=== PATIENT | female | born 1950 | race Caucasian/White ===

== ENCOUNTER → 2016-07-19 | Outpatient (CLI) | payer MEDICARE ==
[2016-07-19 11:06] LABS: Basophils # (A) 0.1 k/uL (0-0.2); Basophils % (A) 1 %; CHCM 31.7; Eosinophils # (A) 0.1 k/uL (0-0.7); Eosinophils % (A) 2 %; HCT 40.3 % (34.0-46.0); HGB 12.3 gm/dL (11.4-16.0); Hypochromasia Slight; Luc # (Auto) 0.12; Luc % (Auto) 2; Lymphocytes # (A) 1.5 k/uL (1.0-4.8); Lymphocytes % (A) 23 %; MCH 26.1 pg (25.0-35.0); MCHC 30.5 g/dL (31.0-37.0); MCV 85.6 fL (80.0-100.0); Mean Platelet Volume 7.4; Monocytes # (A) 0.4 k/uL (0-1.0); Monocytes % (A) 6 %; Neutrophils # (A) 4.3 k/uL (1.3-7.7); Neutrophils % (A) 66 %; RBC 4.71 m/uL (3.80-5.40); RDW 15.3 % (11.5-15.5); WBC 6.5 k/uL (3.8-10.6); WBC (Perox) 6.56
[2016-07-19 12:30] LABS: Erythrocyte Sedimentation Rate 21 mm/hr (0-20)
[2016-07-19 12:48] LABS: ALT 34 U/L (9-52); AST 23 U/L (14-36); Alkaline Phosphatase 67 U/L (38-126); Anion Gap 12 mmol/L; Blood Urea Nitrogen 13 mg/dL (7-17); Calcium 9.4 mg/dL (8.4-10.2); Carbon Dioxide 28 mmol/L (22-30); Chloride 103 mmol/L (98-107); Cholesterol 156 mg/dL (<200); Glucose 87 mg/dL (74-99); HDL Cholesterol 68 mg/dL (40-60); Non-African American GFR(MDRD) >60 (>60 ml/min/1.73 sqM); Potassium 4.1 mmol/L (3.5-5.1); Sodium 143 mmol/L (137-145); Total Bilirubin 0.8 mg/dL (0.2-1.3); Total Protein 7.1 g/dL (6.3-8.2); Triglycerides 52 mg/dL (<150)
[2016-07-19 15:02] LABS: C Reactive Protein 13.4 mg/L (<10.0)
== END | disposition home or self-care (01) ==
LOC: LABWHC1 10:42
PROVIDERS: ATTEND Internal Medicine Rheumatology
DX: Z00.00 Encounter for general adult medical examination without abnormal findings (principal); M06.9 Rheumatoid arthritis, unspecified; I10 Essential (primary) hypertension; K21.9 Gastro-esophageal reflux disease without esophagitis
CPT/HCPCS: 36415; 80053; 80061; 82306; 84443; 85025; 85652; 86140

== ENCOUNTER → 2016-08-01 | Outpatient (CLI) | payer MEDICARE ==
--- NOTE | 2016-08-02 13:06 | MM ---
Reason for exam: screening (asymptomatic). Last mammogram was performed 3 years and 2 months ago. History: Patient is postmenopausal. Family history of breast cancer in aunt. Cyst aspiration of the right breast. Excisional biopsy of the left breast. Took estrogen for 2 years beginning at age 47. Physical Findings: A clinical breast exam by your physician is recommended on an annual basis and results should be correlated with mammographic findings. MG 3D Screening Mammo W/Cad Bilateral CC and MLO view(s) were taken. Prior study comparison: May 20, 2013, bilateral digital screening mammo w/CAD. December 19, 2009, bilateral digital screening mammogram. The breast tissue is heterogeneously dense. This may lower the sensitivity of mammography. Finding: There are typically benign dystrophic, round, grouped/clustered calcifications in both breasts. There is a chronic nodularity in the left breast. There is no discrete abnormality. ASSESSMENT: Benign, BI-RAD 2 RECOMMENDATION: Routine screening mammogram of both breasts in 1 year.
== END | disposition home or self-care (01) ==
LOC: RADMAMWWP 12:38
PROVIDERS: ATTEND Family Medicine
DX: Z12.31 Encounter for screening mammogram for malignant neoplasm of breast (principal); K21.9 Gastro-esophageal reflux disease without esophagitis; I10 Essential (primary) hypertension; M06.9 Rheumatoid arthritis, unspecified
CPT/HCPCS: 77063; G0202

== ENCOUNTER → 2017-01-23 | Outpatient (CLI) | payer MEDICARE ==
[2017-01-23 13:29] LABS: Basophils # (A) 0.1 k/uL (0-0.2); Basophils % (A) 1 %; CH 27.1; CHCM 31.6; Eosinophils # (A) 0.2 k/uL (0-0.7); Eosinophils % (A) 3 %; HCT 38.2 % (34.0-46.0); Hypochromasia Slight; Luc # (Auto) 0.15; Luc % (Auto) 3; Lymphocytes # (A) 1.4 k/uL (1.0-4.8); Lymphocytes % (A) 23 %; MCH 27.1 pg (25.0-35.0); MCHC 31.5 g/dL (31.0-37.0); Mean Platelet Volume 7.3; Monocytes # (A) 0.3 k/uL (0-1.0); Monocytes % (A) 5 %; Neutrophils # (A) 3.9 k/uL (1.3-7.7); Neutrophils % (A) 66 %; RBC 4.45 m/uL (3.80-5.40); RDW 15.8 % (11.5-15.5); WBC (Perox) 6.49
[2017-01-23 13:39] LABS: ALT 38 U/L (9-52); AST 24 U/L (14-36); C Reactive Protein 20.8 mg/L (<10.0); Non-African American GFR(MDRD) >60 (>60 ml/min/1.73 sqM)
[2017-01-23 14:31] LABS: Erythrocyte Sedimentation Rate 25 mm/hr (0-20)
== END | disposition home or self-care (01) ==
LOC: LABWHC1 12:40
PROVIDERS: ATTEND Internal Medicine Rheumatology
DX: M05.89 Other rheumatoid arthritis with rheumatoid factor of multiple sites (principal); Z88.2 Allergy status to sulfonamides
CPT/HCPCS: 36415; 82565; 84450; 84460; 85025; 85652; 86140

== ENCOUNTER → 2017-03-27 | Outpatient (CLI) | payer MEDICARE ==
[2017-03-27 13:29] LABS: Basophils % (A) 1 %; CH 26.6; Eosinophils # (A) 0.1 k/uL (0-0.7); Eosinophils % (A) 2 %; HCT 39.2 % (34.0-46.0); HDW 2.44; HGB 12.1 gm/dL (11.4-16.0); Hypochromasia Marked; Luc # (Auto) 0.12; Luc % (Auto) 2; Lymphocytes # (A) 1.3 k/uL (1.0-4.8); Lymphocytes % (A) 24 %; MCH 27.4 pg (25.0-35.0); MCHC 30.8 g/dL (31.0-37.0); MCV 88.9 fL (80.0-100.0); Mean Platelet Volume 6.7; Monocytes # (A) 0.3 k/uL (0-1.0); Monocytes % (A) 6 %; Neutrophils # (A) 3.7 k/uL (1.3-7.7); Neutrophils % (A) 65 %; RDW 15.7 % (11.5-15.5); WBC 5.7 k/uL (3.8-10.6); WBC (Perox) 5.94
[2017-03-27 13:42] LABS: ALT 30 U/L (9-52); AST 22 U/L (14-36); Non-African American GFR(MDRD) >60 (>60 ml/min/1.73 sqM)
[2017-03-27 14:29] LABS: Erythrocyte Sedimentation Rate 21 mm/hr (0-20)
== END | disposition home or self-care (01) ==
LOC: LABWHC1 12:58
PROVIDERS: ATTEND Internal Medicine Rheumatology
DX: M05.89 Other rheumatoid arthritis with rheumatoid factor of multiple sites (principal)
CPT/HCPCS: 36415; 82565; 84450; 84460; 85025; 85652; 86140

== ENCOUNTER → 2017-08-14 | Outpatient (CLI) | payer MEDICARE ==
[2017-08-14 09:16] LABS: Basophils % (A) 0 %; Eosinophils # (A) 0.2 k/uL (0-0.7); Eosinophils % (A) 3 %; HCT 35.7 % (34.0-46.0); HGB 10.8 gm/dL (11.4-16.0); Hypochromasia Moderate; Lymphocytes % (A) 15 %; MCH 25.3 pg (25.0-35.0); MCHC 30.4 g/dL (31.0-37.0); MCV 83.4 fL (80.0-100.0); Mean Platelet Volume 6.9; Monocytes # (A) 0.4 k/uL (0-1.0); Monocytes % (A) 5 %; Neutrophils # (A) 5.3 k/uL (1.3-7.7); Neutrophils % (A) 75 %; Platelet Count 344 k/uL (150-450); RBC 4.28 m/uL (3.80-5.40); RDW 15.5 % (11.5-15.5); WBC 7.1 k/uL (3.8-10.6)
[2017-08-14 09:59] LABS: ALT 17 U/L (9-52); AST 21 U/L (14-36); C Reactive Protein 16.4 mg/L (<10.0)
[2017-08-14 10:55] LABS: Erythrocyte Sedimentation Rate 33 mm/hr (0-20)
== END | disposition home or self-care (01) ==
LOC: LABWHC1 08:49
PROVIDERS: ATTEND Internal Medicine Rheumatology
DX: M06.9 Rheumatoid arthritis, unspecified (principal)
CPT/HCPCS: 36415; 82565; 84450; 84460; 85025; 85652; 86140

== ENCOUNTER → 2017-11-13 | Outpatient (CLI) | payer MEDICARE ==
[2017-11-13 13:10] LABS: Anisocytosis Slight; Basophils % (A) 1 %; Eosinophils # (A) 0.1 k/uL (0-0.7); Eosinophils % (A) 2 %; HCT 35.9 % (34.0-46.0); HGB 11.4 gm/dL (11.4-16.0); Hypochromasia Slight; Lymphocytes # (A) 1.4 k/uL (1.0-4.8); Lymphocytes % (A) 24 %; MCH 26.3 pg (25.0-35.0); MCHC 31.7 g/dL (31.0-37.0); MCV 82.9 fL (80.0-100.0); Mean Platelet Volume 6.3; Monocytes # (A) 0.3 k/uL (0-1.0); Monocytes % (A) 4 %; Neutrophils # (A) 3.7 k/uL (1.3-7.7); Neutrophils % (A) 65 %; Platelet Count 329 k/uL (150-450); RBC 4.34 m/uL (3.80-5.40); RDW 16.5 % (11.5-15.5); WBC 5.7 k/uL (3.8-10.6)
[2017-11-13 13:25] LABS: ALT 28 U/L (9-52); AST 21 U/L (14-36); C Reactive Protein 27.9 mg/L (<10.0)
[2017-11-13 14:54] LABS: Erythrocyte Sedimentation Rate 29 mm/hr (0-20)
== END | disposition home or self-care (01) ==
LOC: LABWHC1 12:37
PROVIDERS: ATTEND Internal Medicine Rheumatology
DX: M06.9 Rheumatoid arthritis, unspecified (principal)
CPT/HCPCS: 36415; 82565; 84450; 84460; 85025; 85652; 86140

== ENCOUNTER → 2018-02-12 | Outpatient (CLI) | payer MEDICARE ==
[2018-02-12 13:08] LABS: Anisocytosis Slight; Basophils # (A) 0.1 k/uL (0-0.2); Basophils % (A) 1 %; Eosinophils # (A) 0.2 k/uL (0-0.7); Eosinophils % (A) 3 %; HCT 36.8 % (34.0-46.0); HGB 11.6 gm/dL (11.4-16.0); Hypochromasia Slight; Lymphocytes # (A) 1.3 k/uL (1.0-4.8); Lymphocytes % (A) 23 %; MCH 26.3 pg (25.0-35.0); MCHC 31.4 g/dL (31.0-37.0); MCV 83.7 fL (80.0-100.0); Mean Platelet Volume 6.5; Monocytes # (A) 0.3 k/uL (0-1.0); Monocytes % (A) 6 %; Neutrophils # (A) 3.8 k/uL (1.3-7.7); Neutrophils % (A) 66 %; Platelet Count 276 k/uL (150-450); RDW 16.1 % (11.5-15.5); WBC 5.8 k/uL (3.8-10.6)
[2018-02-12 13:26] LABS: ALT 31 U/L (9-52); AST 26 U/L (14-36); C Reactive Protein 11.5 mg/L (<10.0)
[2018-02-12 14:11] LABS: Erythrocyte Sedimentation Rate 23 mm/hr (0-20)
== END | disposition home or self-care (01) ==
LOC: LABWHC1 12:38
PROVIDERS: ATTEND Internal Medicine Rheumatology
DX: M06.9 Rheumatoid arthritis, unspecified (principal)
CPT/HCPCS: 36415; 82565; 84450; 84460; 85025; 85652; 86140

== ENCOUNTER → 2018-06-11 | Outpatient (CLI) | payer MEDICARE ==
--- NOTE | 2018-06-11 10:33 | EST ---
EXERCISE STRESS AGE: 68 SEX: F HT: 60' WT: 137 PROTOCOL: Lexiscan Cardiolite Stress Test HEART RATE REST: 70 BLOOD PRESSURE REST: 157/77 MAXIMUM HEART RATE ACHIEVED: 91 MAXIMUM BLOOD PRESSURE: 164/47 INDICATIONS: Abnormal EKG CLINICAL INFORMATION: Baseline rhythm is sinus mechanism, rate 70, normal axis and intervals, normal echocardiogram. Baseline blood pressure 157/77 mmHg. Patient received injection of Lexiscan. Electrocardiographic monitoring revealed no evidence of diagnostic ischemic ST deviation. Cardiolite was injected per protocol. CONCLUSION: 1. Nondiagnostic electrocardiograph stress testing. 2. Nuclear images will be reported separately. MMODL / IJN: [id number] /
--- NOTE | 2018-06-11 14:15 | NM ---
EXAMINATION TYPE: NM stress cardiolite complete DATE OF EXAM: 06/11/2018 COMPARISON: NONE HISTORY: R 94.31, abnormal EKG TECHNIQUE: Patient received 10.6 and 25.4 mCi technetium 99m Cardiolite intravenously and protocol wa s 0.4 mg Lexiscan IV. FINDINGS: Targeted heart rate was achieved during performance of the study. Review of stress and rest SPECT neyda ges demonstrates some decreased uptake along the anteroseptal left ventricle towards the apex however there is some decreased uptake at the cardiac apex on stress as compared to rest images. Gated anal ysis shows normal wall motion with an estimated left ventricular ejection fraction of 63 %. IMPRESSION: Question prior infarct and there is finding compatible with stress-induced mona-infarct left ventricu lar myocardial ischemia. Report relayed telephonically to Russ in the office of Dr. Caceres at the [facility] of interpretation at exam.
== END ==
LOC: RADNMMAIN 07:52
PROVIDERS: ATTEND Family Medicine
DX: R94.31 Abnormal electrocardiogram [ECG] [EKG] (principal)
CPT/HCPCS: 93017; 78452; A9500

== ENCOUNTER 2018-06-24 07:18 | Day surgery (SDC) | payer MEDICARE ==
[2018-06-19 08:47] VITALS: BMI 26.5
[~2018-06-24 07:18] MED LIST: ALPRAZolam 0.25 MG TAB PO PRN; ALPRAZolam 0.5 MG TAB PO PRN; ASPIRIN 325 MG TAB PO ONE; ATORVASTATIN 80 MG TAB PO ONE; NITROGLYCERIN SL TABS 0.4 MG TAB SUBLINGUAL PRN; SODIUM CHLORIDE 0.9% 1,000 ML in EMPTY BAG 1 BAG IV ONE
[2018-06-24 08:37] VITALS: PULSE 65; TEMP 98.2
[2018-06-24] MEDS ORDERED: fentaNYL (PF) 50 MCG/ML 2 ML AMP ONE (09:11)
[2018-06-24] MEDS ORDERED: LIDOCAINE 1% INJ 10MG/ML (20 ML MDV) ONE (09:11)
[2018-06-24] MEDS ORDERED: MIDAZOLAM 2 MG/2 ML VIAL IVP ONE (09:28)
[2018-06-24] MEDS ORDERED: fentaNYL (PF) 50 MCG/ML 2 ML AMP IVP ONE (09:29)
[2018-06-24] MEDS ORDERED: LIDOCAINE 1% (PF) 10MG/ML VIAL SQ ONE (09:40)
[2018-06-24] MEDS ORDERED: IOPAMIDOL-370 125ML BTL INJ ONE (09:52)
[2018-06-24] MEDS ORDERED: IOPAMIDOL-370 50ML BTL INJ ONE (09:53)
[2018-06-24] MEDS ORDERED: RX INFO: IV CONTRAST WAS GIVEN 1 EACH MISC MISCELLANE PRN (10:07)
--- NOTE | 2018-06-24 10:13 | P.CARDCATH ---
Date of Procedure: 06/24/18 Preoperative Diagnosis: Positive stress test, preop clearance Postoperative Diagnosis: Noncritical coronary artery disease Procedure(s) Performed: Left heart catheterization with left ventriculography Description of Procedure: HISTORY: This is a 68-year-old female with history of rheumatoid arthritis who is being considered for orthopedic surgery. Patient had a nuclear stress test preoperatively. This was reported as showing fixed defect in the anteroseptal area with reversible ischemia at the apex. Patient is advised to have a cardiac catheterization for definitive diagnosis. CONSENT:I have discussed the risks, benefits and alternative therapies for the above-mentioned procedure and for both sedation/analgesia as well as necessary blood product administration, if indicated, as they pertain to this patient. The patient has indicated understanding and acceptance of the risks and procedures discussed. PROCEDURE: Patient was brought to the lab in a fasting state. Patient was given some IV sedation. The right groin is infiltrated with lidocaine and right femoral artery was entered using Seldinger technique. A 6-Estonian catheter was left in place and selective coronary arteriography and left ventriculography was performed. Patient tolerated the procedure well. Femoral angiogram was performed and Angio-Seal was applied for hemostasis. No immediate complications were noted and patient was transferred to [facility] in a stable condition Conscious Sedation: Versed 0.5mg Fentanyl 50 g Duration 17minutes HEMODYNAMICS: The aortic pressure is about 120/70. Left ventricle end- diastolic pressure is about 8-10. There was no gradient across the aortic valve. SELECTIVE CORONARY ARTERIOGRAPHY: LEFT MAIN: This is a short and patent and device into left anterior descending and a complex system. Mild calcification noted. No critical blockages THE LEFT ANTERIOR DESCENDING CORONARY ARTERY: This a good caliber vessel with calcification the proximal segment. There is mild plaque after the first diagonal branch. The first diagonal branch is good sized branch. The LAD wraps around the apex. No critical lesion noted in the LAD THE LEFT CIRCUMFLEX AND IS CORONARY ARTERY: This is a moderate caliber vessel with mild plaque in the midportion THE RIGHT CORONARY ARTERY:. This is a good caliber vessel and dominant in nature. It gives rise good-sized PDA and PLV branches. There is a mild plaque in the midportion of the RCA with about 30% luminal narrowing. No critical lesions noted LEFT VENTRICULOGRAPHY:. This revealed normal-sized cardiac silhouette with good systolic function without any segmental wall motion defects FINAL IMPRESSION: Noncritical coronary artery disease. Preserved LV function PLAN: Maximum medical therapy and this factor modification. Patient is cleared for surgery PROGNOSIS: Fair
[2018-06-24] MEDS ORDERED: SODIUM CHLORIDE 0.9% 1,000 ML IV SCH (10:15)
[2018-06-24 15:22] VITALS: BP 148/64; RESP 18
== END 2018-06-24 15:30 | disposition home or self-care (01) ==
LOC: CATHCVL 07:18
PROVIDERS: ATTEND Internal Medicine Cardiovascular Disease
DX: I25.10 Atherosclerotic heart disease of native coronary artery without angina pectoris (principal); I25.84 Coronary atherosclerosis due to calcified coronary lesion; I10 Essential (primary) hypertension; M06.9 Rheumatoid arthritis, unspecified; Z79.899 Other long term (current) drug therapy; Z88.1 Allergy status to other antibiotic agents; Z88.5 Allergy status to narcotic agent; Z88.2 Allergy status to sulfonamides
CPT/HCPCS: 93458; C1760; C1894; C1769 ×2; J2250; J3010; J2001; Q9967 ×2

== ENCOUNTER → 2018-08-20 | Outpatient (CLI) | payer MEDICARE ==
[2018-08-20 13:26] LABS: Basophils # (A) 0.1 k/uL (0-0.2); Basophils % (A) 1 %; Eosinophils # (A) 0.3 k/uL (0-0.7); Eosinophils % (A) 4 %; HCT 37.1 % (34.0-46.0); HGB 11.2 gm/dL (11.4-16.0); Hypochromasia Marked; Lymphocytes # (A) 1.7 k/uL (1.0-4.8); Lymphocytes % (A) 21 %; MCH 25.3 pg (25.0-35.0); MCHC 30.3 g/dL (31.0-37.0); MCV 83.4 fL (80.0-100.0); Mean Platelet Volume 5.9; Monocytes # (A) 0.4 k/uL (0-1.0); Monocytes % (A) 5 %; Neutrophils # (A) 5.5 k/uL (1.3-7.7); Neutrophils % (A) 68 %; Platelet Count 334 k/uL (150-450); RBC 4.45 m/uL (3.80-5.40); RDW 15.5 % (11.5-15.5); WBC 8.1 k/uL (3.8-10.6)
[2018-08-20 15:53] LABS: Erythrocyte Sedimentation Rate 41 mm/hr (0-20)
[2018-08-20 19:25] LABS: C Reactive Protein 1.5 mg/dL (0.0-0.8)
== END | disposition home or self-care (01) ==
LOC: LABWHC1 12:56
PROVIDERS: ATTEND Internal Medicine Rheumatology
DX: M06.9 Rheumatoid arthritis, unspecified (principal)
CPT/HCPCS: 36415; 82565; 84450; 84460; 85025; 85652; 86140

== ENCOUNTER → 2018-09-17 | Outpatient (CLI) | payer MEDICARE ==
[2018-09-17 10:07] LABS: HCT 36.9 % (34.0-46.0); HGB 10.9 gm/dL (11.4-16.0); Hypochromasia Moderate; MCHC 29.6 g/dL (31.0-37.0); MCV 81.2 fL (80.0-100.0); Mean Platelet Volume 6.5; Platelet Count 326 k/uL (150-450); RBC 4.55 m/uL (3.80-5.40); RDW 15.8 % (11.5-15.5); WBC 6.7 k/uL (3.8-10.6)
[2018-09-17 10:14] LABS: INR 1.2 (<1.2)
[2018-09-17 16:57] LABS: Hemoglobin A1C 5.5 % (4.0-6.0)
[2018-09-17 16:59] LABS: Anion Gap 4.4 mmol/L (4.00-12.00); Calcium 9.4 mg/dL (8.7-10.3); Carbon Dioxide 30.6 mmol/L (21.6-31.8); Potassium 5.1 mmol/L (3.5-5.5)
== END | disposition home or self-care (01) ==
LOC: LABWHC1 08:52
PROVIDERS: ATTEND Orthopaedic Surgery Adult Reconstructive Orthopaedic Surgery
DX: Z01.89 Encounter for other specified special examinations (principal)
CPT/HCPCS: 36415; 80048; 83036; 85027; 85610; 87070

== ENCOUNTER → 2018-12-01 | Outpatient (CLI) | payer MEDICARE ==
[2018-12-01 11:54] LABS: Anisocytosis Slight; Basophils # (A) 0.1 k/uL (0-0.2); Basophils % (A) 1 %; Eosinophils # (A) 0.3 k/uL (0-0.7); Eosinophils % (A) 4 %; HCT 32.8 % (34.0-46.0); HGB 9.7 gm/dL (11.4-16.0); Hypochromasia Marked; Lymphocytes # (A) 1.1 k/uL (1.0-4.8); Lymphocytes % (A) 16 %; MCH 23.3 pg (25.0-35.0); MCHC 29.7 g/dL (31.0-37.0); MCV 78.3 fL (80.0-100.0); Mean Platelet Volume 6.7; Microcytosis Slight; Monocytes # (A) 0.4 k/uL (0-1.0); Monocytes % (A) 6 %; Neutrophils # (A) 5.1 k/uL (1.3-7.7); Neutrophils % (A) 73 %; Platelet Count 343 k/uL (150-450); RBC 4.19 m/uL (3.80-5.40); RDW 16.5 % (11.5-15.5)
[2018-12-01 14:49] LABS: Erythrocyte Sedimentation Rate 48 mm/hr (0-20)
[2018-12-01 16:07] LABS: C Reactive Protein 5.2 mg/dL (0.0-0.8)
== END ==
LOC: LABWHC1 11:04
PROVIDERS: ATTEND Internal Medicine Rheumatology
DX: M06.9 Rheumatoid arthritis, unspecified (principal)
CPT/HCPCS: 36415; 82565; 84450; 84460; 85025; 85652; 86140

== ENCOUNTER → 2019-04-01 | Outpatient (CLI) | payer MEDICARE ==
[2019-04-01 09:39] LABS: Anisocytosis Slight; Basophils # (A) 0.1 k/uL (0-0.2); Basophils % (A) 1 %; Eosinophils # (A) 0.3 k/uL (0-0.7); Eosinophils % (A) 4 %; HCT 34.1 % (34.0-46.0); HGB 10.1 gm/dL (11.4-16.0); Hypochromasia Marked; Lymphocytes # (A) 1.4 k/uL (1.0-4.8); Lymphocytes % (A) 16 %; MCH 23.7 pg (25.0-35.0); MCHC 29.7 g/dL (31.0-37.0); MCV 79.8 fL (80.0-100.0); Mean Platelet Volume 6.3; Microcytosis Slight; Monocytes # (A) 0.4 k/uL (0-1.0); Monocytes % (A) 5 %; Neutrophils # (A) 6.5 k/uL (1.3-7.7); Neutrophils % (A) 74 %; Platelet Count 389 k/uL (150-450); RBC 4.27 m/uL (3.80-5.40); RDW 17.9 % (11.5-15.5); WBC 8.8 k/uL (3.8-10.6)
[2019-04-01 11:37] LABS: Erythrocyte Sedimentation Rate 54 mm/hr (0-20)
== END | disposition home or self-care (01) ==
LOC: LABWHC1 08:51
PROVIDERS: ATTEND Internal Medicine Rheumatology
DX: M06.9 Rheumatoid arthritis, unspecified (principal)
CPT/HCPCS: 36415; 82565; 84450; 84460; 85025; 85652; 86140

== ENCOUNTER → 2019-07-15 | Outpatient (CLI) | payer MEDICARE ==
[2019-07-15 09:07] LABS: Anisocytosis Slight; Basophils % (A) 0 %; Eosinophils # (A) 0.2 k/uL (0-0.7); Eosinophils % (A) 3 %; HCT 35.6 % (34.0-46.0); HGB 10.8 gm/dL (11.4-16.0); Hypochromasia Marked; Lymphocytes # (A) 1.2 k/uL (1.0-4.8); Lymphocytes % (A) 21 %; MCH 24.9 pg (25.0-35.0); MCHC 30.5 g/dL (31.0-37.0); MCV 81.6 fL (80.0-100.0); Mean Platelet Volume 7.4; Monocytes # (A) 0.3 k/uL (0-1.0); Monocytes % (A) 5 %; Neutrophils % (A) 69 %; Platelet Count 324 k/uL (150-450); RBC 4.36 m/uL (3.80-5.40); RDW 17.1 % (11.5-15.5); WBC 5.8 k/uL (3.8-10.6)
[2019-07-15 11:18] LABS: Erythrocyte Sedimentation Rate 48 mm/hr (0-20)
[2019-07-15 17:05] LABS: C Reactive Protein 3.4 mg/dL (0.0-0.8); Non-African American GFR(CKD) 87.2 (60.0-200.0)
== END | disposition home or self-care (01) ==
LOC: LABWHC1 08:45
PROVIDERS: ATTEND Internal Medicine Rheumatology
DX: M06.9 Rheumatoid arthritis, unspecified (principal)
CPT/HCPCS: 36415; 82565; 84450; 84460; 85025; 85652; 86140

== ENCOUNTER → 2019-11-16 | Outpatient (CLI) | payer MEDICARE ==
--- NOTE | 2019-11-16 11:39 | CT ---
EXAMINATION TYPE: CT chest wo con DATE OF EXAM: 11/16/2019 COMPARISON: None HISTORY: Pneumonia, immunocompromised CT DLP: 337 mGycm, Automated exposure control for dose reduction was used. CONTRAST: Performed injected with 0 mL of Isovue 300. TECHNIQUE: Axial images were obtained at 5 mm thick sections. Reconstructed images are reviewed on [employer] computer in the coronal plane. FINDINGS: Portion of the thyroid visualized is normal. There is a 0.4 cm nodule in the posterior lateral left lung base. Series 4 image 44. Remainder the benjamin ngs appear clear. No suspicious areas of pneumonitis are evident. No masses or nodules are otherwise evident. No enlarged mediastinal or hilar adenopathy is evident. The ascending aorta diameter at the level o f the main pulmonary artery is 3.4 cm. The main pulmonary artery diameter at the bifurcation is 2.6 cm. Coronary artery calcification is noted. Limited CT sections are obtained through the upper abdomen. Abdomen is essentially unremarkable. IMPRESSIONS: 1. Small nodule left lung base. This could be followed in 6 months. 2. No suspicious changes to suggest underlying pneumonia
== END | disposition home or self-care (01) ==
LOC: RADCTMAIN 10:46
PROVIDERS: ATTEND Internal Medicine Pulmonary Disease
DX: R91.1 Solitary pulmonary nodule (principal); M05.10 Rheumatoid lung disease with rheumatoid arthritis of unspecified site; D84.9 Immunodeficiency, unspecified
CPT/HCPCS: 71250

== ENCOUNTER → 2020-03-07 | Outpatient (CLI) | payer MEDICARE ==
[2020-03-07 12:34] LABS: Anisocytosis Slight; Basophils # (A) 0.1 k/uL (0-0.2); Basophils % (A) 1 %; Eosinophils # (A) 0.2 k/uL (0-0.7); Eosinophils % (A) 4 %; HCT 37.2 % (34.0-46.0); HGB 11.3 gm/dL (11.4-16.0); Hypochromasia Slight; Lymphocytes # (A) 1.7 k/uL (1.0-4.8); Lymphocytes % (A) 26 %; MCH 24.6 pg (25.0-35.0); MCHC 30.4 g/dL (31.0-37.0); MCV 80.8 fL (80.0-100.0); Mean Platelet Volume 6.8; Microcytosis Slight; Monocytes # (A) 0.4 k/uL (0-1.0); Monocytes % (A) 6 %; Neutrophils # (A) 4.1 k/uL (1.3-7.7); Neutrophils % (A) 62 %; Platelet Count 276 k/uL (150-450); RDW 19.4 % (11.5-15.5); WBC 6.6 k/uL (3.8-10.6)
[2020-03-07 19:58] LABS: African American GFR (CKD) 85.4 (60.0-200.0); C Reactive Protein 1.9 mg/dL (0.0-0.8); Non-African American GFR(CKD) 73.7 (60.0-200.0)
[2020-03-07 20:43] LABS: Erythrocyte Sedimentation Rate 44 mm/Hr (0-30)
== END | disposition home or self-care (01) ==
LOC: LABWHC1 11:11
PROVIDERS: ATTEND Internal Medicine Rheumatology
DX: M06.9 Rheumatoid arthritis, unspecified (principal)
CPT/HCPCS: 36415; 82565; 84450; 84460; 85025; 85652; 86140

== ENCOUNTER → 2020-05-31 | Outpatient (CLI) | payer MEDICARE ==
--- NOTE | 2020-05-31 15:56 | BD ---
EXAMINATION TYPE: Axial Bone Density DATE OF EXAM: 05/31/2020 COMPARISON: NONE CLINICAL HISTORY: Disorder of bone, M 89.9 Height: 5 FT 1 1/2 IN Weight: 129 FRAX RISK QUESTIONS: Alcohol (3 or more units per day): NO Family History (Parent hip fracture): NO Glucocorticoids (More than 3mos): YES (Ex: prednisone, prednisolone, methylprednisolone, dexamethasone, and hydrocortisone). History of Fracture in Adulthood: NO Secondary Osteoporosis: 1. Type 1 Diabetes: NO 2. Hyperthyroidism: NO 3. Menopause before 45: YES 4. Malnutrition: NO 5. Chronic liver disease: NO Rheumatoid Arthritis: YES Current Tobacco Use: NO RISK FACTORS HISTORY OF: Family History of Osteoporosis: NO Active: YES Diet low in dairy products/other sources of calcium: NO Postmenopausal woman: AGE 40 Take estrogen and/or progesterone medications: NONE Lost more than 2 inches in height since high school: NONE MEDICATIONS: Additional Medications: METHOTREXATE, LASIX, POTASSIUM Additional History: EXAM MEASUREMENTS: Bone mineral densitometry was performed using the [employer] [place] System. Bone mineral density as measured about the Lumbar spine is: ----- L1-L4(G/cm2): 1.012 T Score Values are as follows: ----- L2: -2.0 ----- L3: -1.5 ----- L4: -0.2 ----- L1-L4: -1.4 Bone mineral density has: DECREASED -7.9 % since study of: 2007 Bone mineral density about the R hip (g/cm2): 0.729 Bone mineral density about the L hip (g/cm2): 0.808 T Score values are as follows: -----R Neck: -2.2 -----L Neck: -1.7 -----R Total: -1.9 -----L Total: -1.9 Bone mineral density has: DECREASED -22.5 % since study of: 2007 IMPRESSION: Osteopenia (T Score between -2.5 and -1). There is slightly increased risk of fracture and the patient may be considered for treatment. Re-Screen 2-5 years. NOTE: T-SCORE=SD OF THE YOUNG ADULT MEAN.
--- NOTE | 2020-06-02 10:38 | MM ---
Reason for exam: screening (asymptomatic). Last mammogram was performed 2 years and 7 months ago. History: Patient is postmenopausal. Family history of breast cancer in maternal aunt and breast cancer in paternal aunt. Cyst aspiration of the right breast. Excisional biopsy of the left breast. Took estrogen for 2 years beginning at age 47. Physical Findings: A clinical breast exam by your physician is recommended on an annual basis and results should be correlated with mammographic findings. MG 3D Screening Mammo W/Cad Bilateral CC and MLO view(s) were taken. Prior study comparison: October 16, 2017, bilateral MG 3d screening mammo w/cad. August 01, 2016, bilateral MG 3d screening mammo w/cad. The breast tissue is heterogeneously dense. This may lower the sensitivity of mammography. Stable vascular and oil cyst calcifications. Stable grouped calcifications lateral posterior right breast. Increasing breast density relating to interval weight loss. No significant changes when compared with prior studies. ASSESSMENT: Benign, BI-RAD 2 RECOMMENDATION: Routine screening mammogram of both breasts in 1 year.
== END | disposition home or self-care (01) ==
LOC: RADMAMWWP 12:35
PROVIDERS: ATTEND Family Medicine
DX: Z12.31 Encounter for screening mammogram for malignant neoplasm of breast (principal); M85.80 Other specified disorders of bone density and structure, unspecified site
CPT/HCPCS: 77063; 77067; 77080

== ENCOUNTER → 2020-05-31 | Outpatient (CLI) | payer MEDICARE ==
[2020-05-31 13:12] LABS: Anisocytosis Slight; Basophils # (A) 0.1 k/uL (0-0.2); Basophils % (A) 1 %; Eosinophils # (A) 0.2 k/uL (0-0.7); Eosinophils % (A) 2 %; HCT 37.4 % (34.0-46.0); Lymphocytes # (A) 1.3 k/uL (1.0-4.8); Lymphocytes % (A) 19 %; MCH 27.5 pg (25.0-35.0); MCHC 32.2 g/dL (31.0-37.0); MCV 85.5 fL (80.0-100.0); Mean Platelet Volume 7.5; Monocytes # (A) 0.3 k/uL (0-1.0); Monocytes % (A) 5 %; Neutrophils # (A) 4.9 k/uL (1.3-7.7); Neutrophils % (A) 72 %; Platelet Count 270 k/uL (150-450); RBC 4.38 m/uL (3.80-5.40); RDW 16.1 % (11.5-15.5); WBC 6.9 k/uL (3.8-10.6)
[2020-05-31 15:41] LABS: Erythrocyte Sedimentation Rate 35 mm/hr (0-20)
[2020-05-31 18:35] LABS: African American GFR (CKD) 85.4 (60.0-200.0); Non-African American GFR(CKD) 73.7 (60.0-200.0)
== END | disposition home or self-care (01) ==
LOC: LABWHC1 12:33
PROVIDERS: ATTEND Internal Medicine Rheumatology
DX: M06.9 Rheumatoid arthritis, unspecified (principal)
CPT/HCPCS: 36415; 82565; 84450; 84460; 85025; 85652; 86140

== ENCOUNTER → 2020-09-14 | Outpatient (CLI) | payer MEDICARE ==
[2020-09-15 01:10] LABS: Basophils # (A) 0.05 X 10*3/uL (0.00-0.10); Basophils % (A) 0.7 %; Eosinophils # (A) 0.12 X 10*3/uL (0.04-0.35); Eosinophils % (A) 1.8 %; HCT 39.3 % (37.2-46.3); HGB 11.5 g/dL (12.0-15.0); Lymphocytes # (A) 1.65 X 10*3/uL (0.90-5.00); Lymphocytes % (A) 24.1 %; MCH 26.3 pg (27.0-32.0); MCHC 29.3 g/dL (32.0-37.0); MCV 89.9 fL (80.0-97.0); Monocytes # (A) 0.43 X 10*3/uL (0.20-1.00); Monocytes % (A) 6.3 %; Neutrophils # (A) 4.58 X 10*3/uL (1.80-7.70); Platelet Count 360 X 10*3/uL (140-440); RBC 4.37 X 10*6/uL (4.10-5.20); RDW 17.9 % (11.5-14.5); WBC 6.84 X 10*3/uL (4.50-10.00)
[2020-09-15 02:50] LABS: African American GFR (CKD) 65.2 (60.0-200.0); Non-African American GFR(CKD) 56.2 (60.0-200.0)
[2020-09-15 05:28] LABS: Erythrocyte Sedimentation Rate 54 mm/Hr (0-30)
== END | disposition home or self-care (01) ==
LOC: LABWHC1 12:46
PROVIDERS: ATTEND Internal Medicine Rheumatology
DX: M06.9 Rheumatoid arthritis, unspecified (principal)
CPT/HCPCS: 36415; 82565; 84450; 84460; 85025; 85652; 86140

== ENCOUNTER 2021-07-07 02:28 | Inpatient (IN) | payer MEDICARE ==
--- NOTE | 2021-07-07 03:00 | ED ---
Chest Pain HPI - General Chief Complaint: Chest Pain Stated Complaint: Chest Pain Time Seen by Provider: 07/07/21 02:36 Source: patient, EMS, RN notes reviewed, old records reviewed Mode of arrival: EMS - History of Present Illness Initial Comments: This is a 71-year-old female DF for evaluation of chest pain she reviewed (was reflux or fluid related but symptoms have persisted for 3 days of not gone away and makes her concern for her heart. She has no shortness of breath. No known fevers no travel history no sick contacts no cough or congestion. Does have history of prior HI MD Complaint: chest pain -: days(s) (3) Onset: during rest Pain Location: substernal Pain Radiation: none Severity: moderate Quality: tightness Consistency: constant Improves With: nothing Worsens With: nothing Anginal Symptoms: dyspnea Other Symptoms: acid taste in mouth, palpitations Treatments Prior to Arrival: none - Related Data Home Medications Medication Instructions Recorded Confirmed Calcium Carbonate/Vitamin D3 1 each PO DAILY 06/19/18 06/19/18 [Calcium 600-Vit D3 2,500 Sftgl] Folic Acid 0.8 mg PO DAILY 06/19/18 06/19/18 HYDROcodone/APAP 5-325MG [[place] 1 tab PO Q6HR PRN 06/19/18 06/19/18 5-325] Hydroxychloroquine Sulfate 200 mg PO DAILY 06/19/18 06/24/18 [Plaquenil] Magnesium 400 mg PO DAILY 06/19/18 06/19/18 Naproxen [Naprosyn] 500 mg PO Q12HR PRN 06/19/18 06/19/18 carisoprodoL [Soma] 350 mg PO TID PRN 06/19/18 06/19/18 metHOTREXate sodium [Methotrexate] 200 mg PO MO 06/19/18 06/19/18 Allergies Allergy/AdvReac Type Severity Reaction Status Date / Time codeine Allergy Unknown Unverified 06/19/18 08:34 Sulfa (Sulfonamide Allergy Rash/Hives Unverified 06/19/18 08:34 Antibiotics) tramadol Allergy Vomiting Unverified 06/19/18 08:34 trimethoprim Allergy Rash/Hives Unverified 06/19/18 08:34 Review of Systems ROS Statement: Those systems with pertinent positive or pertinent negative responses have been documented in the HPI. ROS Other: All systems not noted in ROS Statement are negative. EKG Findings - EKG Comments: EKG Findings:: EKG is sinus rhythm 64 CO 1:30 QRS 88 QTc 414 Past Medical History Past Medical History: Myocardial Infarction (HI), Rheumatoid Arthritis (RA) Additional Past Medical History / Comment(s): SEE DR MIGUELANGEL Melo&P, was told had "silent HI" awaiting knee surgery Last Myocardial Infarction Date:: unknown History of Any Multi-Drug Resistant Organisms: None Reported Past Surgical History: Bladder Surgery, Hysterectomy Past Anesthesia/Blood Transfusion Reactions: No Reported Reaction Past Psychological History: No Psychological Hx Reported Smoking Status: Never smoker Past Alcohol Use History: Rare Past Drug Use History: None Reported - Past Family History Mother Family Medical History: Deep Vein Thrombosis (DVT) General Exam General appearance: alert, in no apparent distress Head exam: Present: atraumatic, normocephalic, normal inspection Eye exam: Present: normal appearance, PERRL, EOMI. Absent: scleral icterus, conjunctival injection, periorbital swelling ENT exam: Present: normal exam, mucous membranes moist Neck exam: Present: normal inspection. Absent: tenderness, meningismus, lym phadenopathy Respiratory exam: Present: normal lung sounds bilaterally. Absent: respiratory distress, wheezes, rales, rhonchi, stridor Cardiovascular Exam: Present: regular rate, normal rhythm, normal heart sounds. Absent: systolic murmur, diastolic murmur, rubs, gallop, clicks GI/Abdominal exam: Present: soft, normal bowel sounds. Absent: distended, tenderness, guarding, rebound, rigid Extremities exam: Present: normal inspection, full ROM, normal capillary refill. Absent: tenderness, pedal edema, joint swelling, calf tenderness Back exam: Present: normal inspection Neurological exam: Present: alert, oriented X3, CN II-XII intact Psychiatric exam: Present: normal affect, normal mood Skin exam: Present: warm, dry, intact, normal color. Absent: rash Course Vital Signs 07/07/21 07/07/21 02:34 02:44 Temperature 98.0 F Pulse Rate 71 65 Respiratory 18 18 Rate Blood Pressure 141/80 138/76 O2 Sat by Pulse 95 95 Oximetry - Reevaluation(s) Reevaluation #1: 07/07/21 03:00 Medical records reviewed Reevaluation #2: 07/07/21 04:35 Patient still has persistent chest pain here in the ER Reevaluation #3: 07/07/21 04:35 Patient informed of results and questions are answered - Consultations Consultation #1: Spoke with Dr. Barnett who agrees to admit this patient Chest Pain MDM - MDM 71 female to the emergency department with chest pain 3 days of chest pain positive troponin here in the ER, patient will be admitted for anticoagulation and cardiology evaluation and observation Critical Care Time Critical Care Time: Yes Total Critical Care Time: 31 Disposition Clinical Impression: Chest pain, Acute non-ST elevation myocardial infarction (NSTEMI) Disposition: ADMITTED IP TO THIS HOSP Condition: Serious Is patient prescribed a controlled substance at d/c from ED?: No Referrals: Zaki Bernabe MD [Primary Care Provider] - 1-2 days
[2021-07-07 03:08] LABS: Basophils % (A) 0 %; Eosinophils # (A) 0.1 k/uL (0-0.7); Eosinophils % (A) 1 %; HCT 33.5 % (34.0-46.0); HGB 10.7 gm/dL (11.4-16.0); Lymphocytes % (A) 12 %; MCV 84.6 fL (80.0-100.0); Monocytes # (A) 0.7 k/uL (0-1.0); Monocytes % (A) 8 %; Neutrophils # (A) 6.4 k/uL (1.3-7.7); Neutrophils % (A) 78 %; Platelet Count 237 k/uL (150-450); RBC 3.96 m/uL (3.80-5.40); WBC 8.2 k/uL (3.8-10.6)
--- NOTE | 2021-07-07 03:16 | XR ---
EXAMINATION TYPE: XR chest 2V DATE OF EXAM: 07/07/2021 COMPARISON: 06/25/2011 HISTORY: Chest pain TECHNIQUE: 2 views FINDINGS: Heart is enlarged. There is slight blunting right costophrenic angle. There is no heart david lure. Thoracic aorta is atheromatous. There are no hilar masses. IMPRESSION: There is cardiomegaly with small right pleural effusion. No obvious heart failure. No sig nificant pulmonary congestion seen. Heart appears increased compared to old exam.
[2021-07-07 03:17] LABS: ALT 14 U/L (4-34); African American GFR (CKD) >90 (>60 ml/min/1.73 sqM); Anion Gap 6 mmol/L; Blood Urea Nitrogen 16 mg/dL (7-17); Calcium 8.5 mg/dL (8.4-10.2); Carbon Dioxide 25 mmol/L (22-30); Chloride 102 mmol/L (98-107); Glucose 111 mg/dL (74-99); Lipase 39 U/L (23-300); Non-African American GFR(CKD) >90 (>60 ml/min/1.73 sqM); Sodium 133 mmol/L (137-145); Total Bilirubin 0.8 mg/dL (0.2-1.3)
[2021-07-07 03:36] LABS: AST 31 U/L (14-36); Albumin 3.1 g/dL (3.5-5.0); Potassium 4.2 mmol/L (3.5-5.1); Total Protein 6.3 g/dL (6.3-8.2)
[2021-07-07 03:37] LABS: Alkaline Phosphatase 47 U/L (38-126); Magnesium 1.8 mg/dL (1.6-2.3)
[2021-07-07 04:16] LABS: INR 1.2 (<1.2); Partial Thromboplastin Time 23.8 sec (22.0-30.0); Prothrombin Time 12.4 sec (9.0-12.0)
[2021-07-07] MEDS ORDERED: MORPHINE SULFATE 4 MG/ML SYRINGE IV PRN (04:32)
[2021-07-07] MEDS ORDERED: ACETAMINOPHEN TAB 325 MG TAB PO PRN (04:32)
[2021-07-07] MEDS ORDERED: HEPARIN SODIUM 1,000 UN/ML (10ML VL) IV ONE (04:32)
[2021-07-07] MEDS ORDERED: NALOXONE 0.4 MG/ML 1 ML VIAL IV PRN (04:32)
[2021-07-07] MEDS: HEPARIN SOD,PORK IN 0.45% NACL 25,000 UNIT in 0.45% NACL 1 250ML.BAG IV SCH (05:14)
[2021-07-07] MEDS: SODIUM CHLORIDE 0.9% 1,000 ML IV SCH (05:14)
--- NOTE | 2021-07-07 10:58 | ECHOF ---
Referral Reason:chest pain MEASUREMENTS -------- HEIGHT: 154.9 cm WEIGHT: 57.6 kg BP: IVSd: 1.0 cm (0.6 - 1.1) LVIDd: 4.5 cm (3.9 - 5.3) LVPWd: 1.3 cm (0.6 - 1.1) IVSs: 1.4 cm LVIDs: 3.5 cm LVPWs: 1.6 cm LAESV Index (A-L): 34.64 ml/m Ao Diam: 3.0 cm (2.0 - 3.7) AV Cusp: 2.1 cm (1.5 - 2.6) LA Diam: 2.9 cm (2.7 - 3.8) MV EXCURSION: 19.783 mm (> 18.000) MV EF SLOPE: 62 mm/s (70 - 150) EPSS: 1.1 cm MV E Trung: 1.19 m/s MV DecT: 269 ms MV A Trung: 0.68 m/s MV E/A Ratio: 1.77 RAP: 15.00 mmHg RVSP: 43.10 mmHg FINDINGS -------- This was a technically good study. The left ventricular size is normal. Left ventricular wall thickness is normal. Overall left vent ricular systolic function is mild-moderately impaired with, an EF between 40 - 45 %. Normal LAP Gra de 1 Diastolic Dysfunction. Basal posterior LV wall motion is hypokinetic. Basal inferior LV wal l motion is hypokinetic. Basal inferoseptal LV wall motion is hypokinetic. Mid inferior LV wall motion is hypokinetic. Mid inferoseptal LV wall motion is hypokinetic. The right ventricle is normal in size. The left atrial size is normal. Normal LA size by volume 22+/-6 ml/m2. The right atrial size is normal. The aortic valve is trileaflet and appears structurally normal. The mitral valve is normal. Pghqbdha-[id number] mitral regurgitation is present. The tricuspid valve appears structurally normal. Mild tricuspid regurgitation present. There is m ild pulmonary hypertension. The right ventricular systolic pressure, as measured by Doppler, is 43. 10mmHg. There is no pulmonic regurgitation present. The aortic root size is normal. The inferior vena cava is mildly dilated. There is no pericardial effusion. CONCLUSIONS -------- 1. The left ventricular size is normal. 2. Left ventricular wall thickness is normal. 3. Overall left ventricular systolic function is mild-moderately impaired with, an EF between 40 - 45 %. 4. Normal LAP Grade 1 Diastolic Dysfunction. 5. Basal posterior LV wall motion is hypokinetic. 6. Basal inferior LV wall motion is hypokinetic. 7. Basal inferoseptal LV wall motion is hypokinetic. 8. Mid inferior LV wall motion is hypokinetic. 9. Mid inferoseptal LV wall motion is hypokinetic. 10. [id number] mitral regurgitation is present. 11. Mild tricuspid regurgitation present. 12. There is mild pulmonary hypertension. 13. The right ventricular systolic pressure, as measured by Doppler, is 43.10mmHg. 14. The inferior vena cava is mildly dilated. 15. There is no pericardial effusion. PACK WORKER SUPERVISOR: Ayala Elizabeth RDCS
--- NOTE | 2021-07-07 11:21 | P.HPIM ---
History of Present Illness H&P Date: 07/07/21 Chief Complaint: NSTEMI History of present illness: This is a 71-year-old pleasant female who follows with Russ Briceno works under Dr. Bernabe. With a past medical history that is significant for previous myocardial infarction, rheumatoid arthritis, previous smoker smoked for approximately 20 years one pack a day quit in 1992. Patient states about 10 days ago she suffered from food poisoning she had nausea and vomiting for approximately 2 days. After the episode of food poisoning she developed epigastric pain. She called her primary care physician who instructed her to utilize Pepto-Bismol a few times a day. Patient states that she started to continue to have the epigastric pain on and off that would radiate to her shoulders. She also felt shaky at times. She does not have any difficulty breathing or any other episodes of nausea or vomiting. Patient did take her blood pressure and heart rate which she found her heart rate to be elevated in blood pressure to be low and again she contacted her primary care physician who stated that this could be normal due to all the vomiting. She was also instructed to start her PPI medication again which she found to have some relief however she would continue to have epigastric pain. Patient was awoken last night due to the epigastric pain and not getting any relief she decided to come to the emergency room. At this time patient is assessed in the emergency room with her son at the bedside. Patient states that she is not having any chest pain. No difficulty breathing nausea or vomiting. Patient does state that she does have some continued epigastric pain that is nonradiating. She is previously had a heart cath in the past that did not require any stents at that time. She does follow with Dr. Caden Bhandari. She is unsure of when her last echocardiogram was. Review Of Systems: Constitutional: No fever, no chills, no night sweats. No weight change. No weakness, fatigue or lethargy. No daytime sleepiness. EENT: No headache. No blurred vision or double vision, no loss of vision. No loss of Hearing, no ringing in the ears, no dizziness. No nasal drainage or congestion. No epistaxis. No sore throat. Lungs: No shortness of breath, cough, no sputum production. No wheezing. Cardiovascular: Reports epigastric pain, No chest pain, no lower extremity edema. No palpitations. No paroxysmal nocturnal dyspnea. No orthopnea. No lightheadedness or dizziness. No syncopal episodes. Abdominal: no abdominal discomfort. No nausea, vomiting. no diarrhea. No constipation. No bloody or tarry stools. no loss of appetite. Genitourinary: No dysuria, increased frequency, urgency. No urinary retention. Musculoskeletal: No myalgias. No muscle weakness, no gait dysfunction, no frequent falls. No back pain. No neck pain. Integumentary: No wounds, no lesions. No rash or pruritus. No unusual bruising. No change in hair or nails. Neurologic: No aphasia. No facial droop. No change in mentation. No head injury. No headache. No paralysis. No paresthesia. Psychiatric: No depression. No anxiety. No mood swings. Endocrine: No abnormal blood sugars. No weight change. No excessive sweating or thirst. Social history: Patient is retired. 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 she lives alone. She was a previous smoker quitting in 1992. She smoked for 20 years one pack a day. Denies any EtOH or illicit drug use. Family history: She has 2 children who are healthy. She has one sister with history of coronary artery disease, her mother at 82 from stroke, father passed rate 84 due to Parkinson complications. Physical examination General Appearance: Alert, cooperative, no distress, this is a 71-year-old female appears stated age. Neck HEENT: Supple, no lymphadenopathy, no thyroid enlargement, no carotid bruits. Lungs: Clear to auscultation without crackles or wheezes no rhonchi, no deformity. Chest Wall: Chest wall normal expansion with deep inspiration no tenderness and no deformity was found on exam, no costochondral pain or discomfort. Heart: Regular rate and rhythm, S1, S2 normal, no murmur, rub or gallop. Back: Symmetric, no curvature, ROM normal, no CVA tenderness. Abdomen: Soft, non-tender, no rebound or rigidity, no hepatosplenomegaly. Extremities: Extremities normal, atraumatic, no cyanosis or edema. Pulses: 2+ and symmetric. Skin: Skin color, texture, tugor normal, no rashes or lesions. Neurologic: Alert oriented x3 cranial nerves II through XII intact, no motor deficit, no abnormal balance or gait Assessment and plan 1. Non-STEMI with epigastric pain, previous heart cath with no stents. Consult cardiology, continue heparin drip, obtain echocardiogram. Morphine 4 mg every 4 hours as needed. Troponins 3. 2. Epigastric pain. As noted above 3. Rheumatoid arthritis. Currently not on any medications, takes over-the-co unter supplements follows with rheumatology out of town. 4. DVT prophylaxis. Currently on heparin drip 5. GI prophylaxis. Protonix CODE STATUS: Full code Patient was admitted for minimum 2 nights day. Discharge plan: To be determined more than likely home Impression and plan of care have been directed as dictated by the signing physician. Ember Mc nurse practitioner acting as scribe for signing physician. Past Medical History Past Medical History: Myocardial Infarction (HI), Rheumatoid Arthritis (RA) Additional Past Medical History / Comment(s): SEE DR MEANS H&P, was told had "silent HI" awaiting knee surgery Last Myocardial Infarction Date:: unknown History of Any Multi-Drug Resistant Organisms: None Reported Past Surgical History: Bladder Surgery, Hysterectomy Past Anesthesia/Blood Transfusion Reactions: No Reported Reaction Past Psychological History: No Psychological Hx Reported Smoking Status: Never smoker Past Alcohol Use History: Rare Past Drug Use History: None Reported - Past Family History Mother Family Medical History: Deep Vein Thrombosis (DVT) Medications and Allergies Home Medications Medication Instructions Recorded Confirmed Type Calcium Carbonate/Vitamin D3 1 cap PO DAILY 06/19/18 07/07/21 History [Calcium 600-Vit D3 2,500 Sftgl] Folic Acid 0.8 mg PO DAILY 06/19/18 07/07/21 History Ferrous Sulfate [Feosol] 325 mg PO DAILY 07/07/21 07/07/21 History Magnesium Oxide [Mag-Ox] 400 mg PO DAILY 07/07/21 07/07/21 History Potassium Chloride [Potassium 8 meq PO DAILY 07/07/21 07/07/21 History Chloride ER] Allergies Allergy/AdvReac Type Severity Reaction Status Date / Time codeine Allergy Unknown Verified 07/07/21 07:35 Sulfa (Sulfonamide Allergy Rash/Hives Verified 07/07/21 07:35 Antibiotics) tramadol Allergy Vomiting Verified 07/07/21 07:35 trimethoprim Allergy Rash/Hives Verified 07/07/21 07:35 Physical Exam Vitals: Vital Signs Temp Pulse Resp BP Pulse Ox 07/07/21 10:39 98.8 F 64 18 121/57 96 07/07/21 07:05 62 18 142/69 95 07/07/21 05:16 69 18 145/63 94 L 07/07/21 02:44 65 18 138/76 95 07/07/21 02:34 98.0 F 71 18 141/80 95 Intake and Output 07/06/21 07/07/21 07/07/21 22:59 06:59 14:59 Other: Weight 57.606 kg Results CBC & Chem 7: 07/07/21 02:47 07/07/21 02:47 Labs: Abnormal Lab Results - Last 24 Hours (Table) 07/07/21 07/07/21 07/07/21 Range/Units 02:47 02:47 02:47 Hgb 10.7 L (11.4-16.0) gm/dL Hct 33.5 L (34.0-46.0) % PT 12.4 H (9.0-12.0) sec INR 1.2 H (<1.2) Sodium 133 L (137-145) mmol/L Glucose 111 H (74-99) mg/dL Troponin I (0.000-0.034) ng/mL Albumin 3.1 L (3.5-5.0) g/dL 07/07/21 07/07/21 Range/Units 02:47 05:51 Hgb (11.4-16.0) gm/dL Hct (34.0-46.0) % PT (9.0-12.0) sec INR (<1.2) Sodium (137-145) mmol/L Glucose (74-99) mg/dL Troponin I 1.470 H* 1.490 H* (0.000-0.034) ng/mL Albumin (3.5-5.0) g/dL
[2021-07-07] MEDS: HEPARIN SODIUM 1,000 UN/ML (10ML VL) IV PRN ×2 (12:38→22:34)
[2021-07-07] MEDS ORDERED: NITROGLYCERIN SL TABS 0.4 MG TAB SUBLINGUAL PRN (17:38)
--- NOTE | 2021-07-07 18:13 | P.CRDCN ---
History of Present Illness History of present illness: HISTORY OF PRESENTING ILLNESS Patient is a pleasant 71-year-old female with history of mild coronary artery disease by prior heart catheterization 2018, rheumatoid arthritis, remote tobacco abuse quit in 1992, hypertension, hyperlipidemia who follows with Dr. Perera. Patient states that approximately 1 week ago she started having some nausea and vomiting which occurred after eating a hot dog while she was playing cards. She initially took some Pepto-Bismol and was feeling somewhat shaky at the time as well as mild diaphoresis. She felt she got some sort of food poisoning from the hot dog and therefore waited for it to go away after approximately 8-12 hours. She denies any actual epigastric pain, diarrhea. Unfortunately since that time she has been having somewhat atypical right-sided chest pain which is worse with deep inspiration and has been fairly constant. She admits this does somewhat coming go however no obvious exacerbating maneuvers. It is mildly reproducible however not entirely. She therefore called EMS and presented to ER. Blood work shows white blood cell 8.2, hemoglobin 10.7, and 133, creatinine 0.59, troponin 1.4, 1.4, 1.3, proBNP 5410, albumin 3.1. Echocardiogram showed EF 40-45% with grade 1 diastolic dysfunction with inferior and inferolateral hypokinesis. EKG shows new Q waves in lead 3 and aVF compared to EKG from 2018 with T-wave inversions 3 and aVF and V6. There are additional Q waves V3 V4. REVIEW OF SYSTEMS At the time of my exam: CONSTITUTIONAL: Denies fever or chills. CARDIOVASCULAR: +chest pain, no shortness of breath, orthopnea, PND or palpitations. RESPIRATORY: Denies cough. GASTROINTESTINAL: Denies abdominal pain, diarrhea, constipation, +nausea, +vomiting. MUSCULOSKELETAL: Denies myalgias. NEUROLOGIC: Denies numbness, tingling or weakness. ENDOCRINE: Denies fatigue, weight change, polydipsia or polyurina. GENITOURINARY: Denies burning, hematuria or urgency with micturation. HEMATOLOGIC: Denies history of anemia or bleeding. PHYSICAL EXAMINATION Vital signs reviewed. CONSTITUTIONAL: No apparent distress. HEENT: Head is normocephalic. Pupils are equal, round. Sclerae anicteric. Mucous membranes of the mouth are moist. No JVD. No carotid bruit. CHEST EXAMINATION: Lungs are clear to auscultation. No chest wall tenderness is noted on palpation or with deep breathing. HEART EXAMINATION: Regular rate and rhythm. S1, S2 heard. No murmurs, gallops or rub. ABDOMEN: Soft, nontender. Positive bowel sounds. EXTREMITIES: 2+ peripheral pulses, no lower extremity edema and no calf tenderness. NEUROLOGIC EXAMINATION: Patient is awake, alert and oriented x3. ASSESSMENT 1. Non-STEMI, suspect type I the etiology with likely late presenting inferior UT with new Q waves and inferior hypokinesis with flat troponins 2. 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 Recent episode of "food poisoning". Suspect nausea and vomiting were for angina symptoms 4. Mild cardiomyopathy EF 40-45% with inferior hypokinesis 5. Hypertension 6. Hyperlipidemia 7. Mild coronary artery disease by heart catheterization 2017 8. Rheumatoid arthritis PLAN Repeat EKG performed which shows continued Q waves inferiorly with more diffuse minimal ST elevation inferior leads as well as anterior without reciprocal changes and suspect related to Minerva syndrome with chest pain being atypical and appearing more pleuritic and has been constant for 2 days, no improvement with nitro. 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 Discussed option of urgent catheterization vs trending troponins as appears infarct has already been completed. Patient and daughter agreeable to trending troponins and likely heart catheterization tomorrow. Continue heparin drip. Past Medical History Past Medical History: Myocardial Infarction (UT), Rheumatoid Arthritis (RA) Additional Past Medical History / Comment(s): SEE DR MEANS H&P, was told had "silent UT" awaiting knee surgery Last Myocardial Infarction Date:: unknown History of Any Multi-Drug Resistant Organisms: None Reported Past Surgical History: Bladder Surgery, Hysterectomy Past Anesthesia/Blood Transfusion Reactions: No Reported Reaction Past Psychological History: No Psychological Hx Reported Smoking Status: Never smoker Past Alcohol Use History: Rare Past Drug Use History: None Reported - Past Family History Mother Family Medical History: Deep Vein Thrombosis (DVT) Medications and Allergies Home Medications Medication Instructions Recorded Confirmed Type Calcium Carbonate/Vitamin D3 1 cap PO DAILY 06/19/18 07/07/21 History [Calcium 600-Vit D3 2,500 Sftgl] Folic Acid 0.8 mg PO DAILY 06/19/18 07/07/21 History Ferrous Sulfate [Feosol] 325 mg PO DAILY 07/07/21 07/07/21 History Magnesium Oxide [Mag-Ox] 400 mg PO DAILY 07/07/21 07/07/21 History Potassium Chloride [Potassium 8 meq PO DAILY 07/07/21 07/07/21 History Chloride ER] Allergies Allergy/AdvReac Type Severity Reaction Status Date / Time codeine Allergy Unknown Verified 07/07/21 07:35 Sulfa (Sulfonamide Allergy Rash/Hives Verified 07/07/21 07:35 Antibiotics) tramadol Allergy Vomiting Verified 07/07/21 07:35 trimethoprim Allergy Rash/Hives Verified 07/07/21 07:35 Physical Exam Vitals: Vital Signs Temp Pulse Pulse Resp BP BP Pulse Ox 07/07/21 16:00 98.4 F 88 16 122/88 97 07/07/21 14:00 18 07/07/21 12:44 62 18 148/69 95 07/07/21 10:39 98.8 F 64 18 121/57 96 07/07/21 07:05 62 18 142/69 95 07/07/21 05:16 69 18 145/63 94 L 07/07/21 02:44 65 18 138/76 95 07/07/21 02:34 98.0 F 71 18 141/80 95 Intake and Output 07/07/21 07/07/21 07/07/21 06:59 14:59 22:59 Intake Total 211.732 Balance 211.732 Intake: Intake, IV Titration 211.732 Amount Heparin Sod,Pork in 0.45% 51.732 NaCl 25,000 unit In 0.45 % NaCl 1 250ml.bag @ 12 UNITS/KG/HR 6.913 mls/hr IV .Q24H L[facility]IE Rx#: [id number] Sodium Chloride 0.9% 1, 160 000 ml @ 20 mls/hr IV . Q24H [facility]ON[facility]IE Rx#:[id number] Other: # Voids 2 Weight 57.606 kg Results 07/07/21 02:47 07/07/21 02:47 Cardiac Enzymes 07/07/21 07/07/21 07/07/21 Range/Units 02:47 02:47 05:51 AST 31 (14-36) U/L Troponin I 1.470 H* 1.490 H* (0.000-0.034) ng/mL 07/07/21 Range/Units 11:05 AST (14-36) U/L Troponin I 1.340 H* (0.000-0.034) ng/mL Coagulation 07/07/21 07/07/21 Range/Units 02:47 11:05 PT 12.4 H (9.0-12.0) sec APTT 23.8 30.2 H (22.0-30.0) sec CBC 07/07/21 Range/Units 02:47 WBC 8.2 (3.8-10.6) k/uL RBC 3.96 (3.80-5.40) m/uL Hgb 10.7 L (11.4-16.0) gm/dL Hct 33.5 L (34.0-46.0) % Plt Count 237 (150-450) k/uL Comprehensive Metabolic Panel 07/07/21 Range/Units 02:47 Sodium 133 L (137-145) mmol/L Potassium 4.2 (3.5-5.1) mmol/L Chloride 102 (98-107) mmol/L Carbon Dioxide 25 (22-30) mmol/L BUN 16 (7-17) mg/dL Creatinine 0.59 (0.52-1.04) mg/dL Glucose 111 H (74-99) mg/dL Calcium 8.5 (8.4-10.2) mg/dL AST 31 (14-36) U/L ALT 14 (4-34) U/L Alkaline Phosphatase 47 (38-126) U/L Total Protein 6.3 (6.3-8.2) g/dL Albumin 3.1 L (3.5-5.0) g/dL Current Medications Generic Name Dose Route Start Last Admin Trade Name Freq PRN Reason Stop Dose Admin Acetaminophen 650 mg 07/07/21 04:32 Acetaminophen Tab 325 Mg Tab PO Q6HR PRN Mild Pain or Fever > 100.5 Heparin Sodium (Porcine) 0 unit 07/07/21 04:32 07/07/21 12:38 Heparin Sodium 1,000 Un/Ml (10ml Vl) IV 2,880.3 unit PER PROTOCOL PRN Administration Low PTT Protocol Heparin Sodium/Sodium Chloride 250 mls @ 6.913 mls/hr 07/07/21 04:45 07/07/21 12:43 25,000 unit/ Sodium Chloride IV 15 units/kg/hr .Q24H LON[facility] 8.641 mls/hr Titration Protocol 12 UNITS/KG/HR Sodium Chloride 1,000 mls @ 20 mls/hr 07/07/21 04:45 07/07/21 05:14 Saline 0.9% IV 20 mls/hr .Q24H LONNIE Administration Morphine Sulfate 4 mg 07/07/21 04:32 Morphine Sulfate 4 Mg/Ml Syringe IV Q4HR PRN Severe Pain Naloxone HCl 0.2 mg 07/07/21 04:32 Naloxone 0.4 Mg/Ml 1 Ml Vial IV Q2M PRN Opioid Reversal Nitroglycerin 0.4 mg 07/07/21 17:38 07/07/21 17:49 Nitroglycerin Sl Tabs 0.4 Mg Tab SUBLINGUAL 0.4 mg Q5M PRN Administration Chest Pain Pantoprazole Sodium 40 mg 07/08/21 09:00 Pantoprazole 40 Mg/10 Ml Vial IVP DAILY LONNIE Intake and Output 07/07/21 07/07/21 07/07/21 06:59 14:59 22:59 Intake Total 211.732 Balance 211.732 Intake: Intake, IV Titration 211.732 Amount Heparin Sod,Pork in 0.45% 51.732 NaCl 25,000 unit In 0.45 % NaCl 1 250ml.bag @ 12 UNITS/KG/HR 6.913 mls/hr IV .Q24H [facility] Rx#: [id number] Sodium Chloride 0.9% 1, 160 000 ml @ 20 mls/hr IV . Q24H [facility]IE Rx#:[id number] Other: # Voids 2 Weight 57.606 kg 07/07/21 02:47 07/07/21 02:47
[2021-07-07] MEDS: ASPIRIN 325 MG TAB PO SCH ×2 (18:44→23:38)
[2021-07-07] MEDS: METOPROLOL TARTRATE 12.5 MG TAB PO SCH (19:41)
[2021-07-08] MEDS: SODIUM CHLORIDE 0.9% 1,000 ML IV SCH ×2 (05:03→22:15)
[2021-07-08] MEDS: HEPARIN SOD,PORK IN 0.45% NACL 25,000 UNIT in 0.45% NACL 1 250ML.BAG IV SCH ×2 (05:36→22:16)
[2021-07-08] MEDS: ASPIRIN 325 MG TAB PO SCH ×4 (05:36→23:08)
[2021-07-08] MEDS: PANTOPRAZOLE 40 MG/10 ML VIAL IVP SCH (08:03)
[2021-07-08] MEDS ORDERED: NITROGLYCERIN SL TABS 0.4 MG TAB SUBLINGUAL PRN (09:28)
[2021-07-08] MEDS ORDERED: ALPRAZolam 0.25 MG TAB PO PRN (09:28)
[2021-07-08] MEDS ORDERED: ALPRAZolam 0.5 MG TAB PO PRN (09:28)
[2021-07-08] MEDS ORDERED: ASPIRIN 325 MG TAB PO STA (09:28)
[2021-07-08] MEDS ORDERED: ATORVASTATIN 80 MG TAB PO STA (09:28)
[2021-07-08 09:58] LABS: Basophils % (A) 1 %; Eosinophils # (A) 0.1 k/uL (0-0.7); Eosinophils % (A) 2 %; HCT 34.8 % (34.0-46.0); HGB 10.9 gm/dL (11.4-16.0); Hypochromasia Slight; Lymphocytes # (A) 1.4 k/uL (1.0-4.8); Lymphocytes % (A) 20 %; MCH 26.6 pg (25.0-35.0); MCHC 31.5 g/dL (31.0-37.0); MCV 84.4 fL (80.0-100.0); Mean Platelet Volume 7.7; Monocytes # (A) 0.5 k/uL (0-1.0); Monocytes % (A) 7 %; Neutrophils # (A) 4.6 k/uL (1.3-7.7); Neutrophils % (A) 69 %; Platelet Count 254 k/uL (150-450); RBC 4.12 m/uL (3.80-5.40); RDW 14.5 % (11.5-15.5); WBC 6.7 k/uL (3.8-10.6)
[2021-07-08 10:33] LABS: ALT 15 U/L (4-34); AST 23 U/L (14-36); African American GFR (CKD) >90 (>60 ml/min/1.73 sqM); Alkaline Phosphatase 62 U/L (38-126); Anion Gap 5 mmol/L; Blood Urea Nitrogen 14 mg/dL (7-17); Calcium 8.6 mg/dL (8.4-10.2); Carbon Dioxide 28 mmol/L (22-30); Chloride 106 mmol/L (98-107); Glucose 96 mg/dL (74-99); Non-African American GFR(CKD) 88 (>60 ml/min/1.73 sqM); Potassium 3.9 mmol/L (3.5-5.1); Sodium 139 mmol/L (137-145); Total Bilirubin 0.4 mg/dL (0.2-1.3); Total Protein 6.1 g/dL (6.3-8.2)
[2021-07-08] MEDS: METOPROLOL TARTRATE 12.5 MG TAB PO SCH ×2 (11:22→20:03)
--- NOTE | 2021-07-08 12:43 | P.PN ---
Subjective Progress Note Date: 07/08/21 History of present illness: This is a 71-year-old pleasant female who follows with Russ Briceno works under Dr. Bernabe. With a past medical history that is significant for previous myocardial infarction, rheumatoid arthritis, previous smoker smoked for approximately 20 years one pack a day quit in 1992. Patient states about 10 days ago she suffered from food poisoning she had nausea and vomiting for approximately 2 days. After the episode of food poisoning she developed epigastric pain. She called her primary care physician who instructed her to utilize Pepto-Bismol a few times a day. Patient states that she started to continue to have the epigastric pain on and off that would radiate to her shoulders. She also felt shaky at times. She does not have any difficulty breathing or any other episodes of nausea or vomiting. Patient did take her blood pressure and heart rate which she found her heart rate to be elevated in blood pressure to be low and again she contacted her primary care physician who stated that this could be normal due to all the vomiting. She was also instructed to start her PPI medication again which she found to have some relief however she would continue to have epigastric pain. Patient was awoken last night due to the epigastric pain and not getting any relief she decided to come to the emergency room. At this time patient is assessed in the emergency room with her son at the bedside. Patient states that she is not having any chest pain. No difficulty breathing nausea or vomiting. Patient does state that she does have some continued epigastric pain that is nonradiating. She is previously had a heart cath in the past that did not require any stents at that time. She does follow with Dr. Caden Bhandari. She is unsure of when her last echocardiogram was. 07/08: Patient is found sitting at the edge of the bed on [address] in no acute distress. Patient states that her breathing has improved compared to yesterday. She is not having any epigastric pain. Patient is scheduled to have a cardiac cath today. Family is at the bedside. Patient remains afebrile, heart rate 62, respirations 16, blood pressure 123/68, pulse ox 95% on room air. Review Of Systems: Constitutional: No fever, no chills, no night sweats. No weight change. No weakness, fatigue or lethargy. No daytime sleepiness. EENT: No headache. No blurred vision or double vision, no loss of vision. No loss of Hearing, no ringing in the ears, no dizziness. No nasal drainage or congestion. No epistaxis. No sore throat. Lungs: No shortness of breath, cough, no sputum production. No wheezing. Cardiovascular: Reports epigastric pain, No chest pain, no lower extremity edema. No palpitations. No paroxysmal nocturnal dyspnea. No orthopnea. No lightheadedness or dizziness. No syncopal episodes. Abdominal: no abdominal discomfort. No nausea, vomiting. no diarrhea. No constipation. No bloody or tarry stools. no loss of appetite. Genitourinary: No dysuria, increased frequency, urgency. No urinary retention. Musculoskeletal: No myalgias. No muscle weakness, no gait dysfunction, no frequent falls. No back pain. No neck pain. Integumentary: No wounds, no lesions. No rash or pruritus. No unusual bruising. No change in hair or nails. Neurologic: No aphasia. No facial droop. No change in mentation. No head injury. No headache. No paralysis. No paresthesia. Psychiatric: No depression. No anxiety. No mood swings. Endocrine: No abnormal blood sugars. No weight change. No excessive sweating or thirst. Physical examination General Appearance: Alert, cooperative, no distress, this is a 71-year-old female appears stated age. Neck HEENT: Supple, no lymphadenopathy, no thyroid enlargement, no carotid bruits. Lungs: Clear to auscultation without crackles or wheezes no rhonchi, no deformity. Chest Wall: Chest wall normal expansion with deep inspiration no tenderness and no deformity was found on exam, no costochondral pain or discomfort. Heart: Regular rate and rhythm, S1, S2 normal, no murmur, rub or gallop. Back: Symmetric, no curvature, ROM normal, no CVA tenderness. Abdomen: Soft, non-tender, no rebound or rigidity, no hepatosplenomegaly. Extremities: Extremities normal, atraumatic, no cyanosis or edema. Pulses: 2+ and symmetric. Skin: Skin color, texture, tugor normal, no rashes or lesions. Neurologic: Alert oriented x3 cranial nerves II through XII intact, no motor deficit, no abnormal balance or gait Assessment and plan 1. Non-STEMI with epigastric pain, previous heart cath with no stents. Consult cardiology, continue heparin drip, obtain echocardiogram. Morphine 4 mg every 4 hours as needed. Troponins 3. 2. Epigastric pain. As noted above 3. Rheumatoid arthritis. Currently not on any medications, takes [id number] supplements follows with rheumatology out of town. 4. DVT prophylaxis. Currently on heparin drip 5. GI prophylaxis. Protonix CODE STATUS: Full code Patient was admitted for minimum 2 nights day. Discharge plan: To be determined more than likely home Impression and plan of care have been directed as dictated by the signing physician. Ember Mc nurse practitioner acting as scribe for signing physician. Objective - Vital Signs Vital signs: Vital Signs Temp 97.9 F 07/08/21 11:34 Pulse 65 07/08/21 11:34 Resp 14 07/08/21 11:34 BP 123/53 07/08/21 11:34 Pulse Ox 95 07/08/21 11:34 Intake & Output 07/07/21 07/08/21 07/08/21 18:59 06:59 18:59 Intake Total 211.732 154.164 Balance 211.732 154.164 Weight 58.3 kg Intake: Intake, IV Titration 211.732 154.164 Amount Heparin Sod,Pork in 0.45% 51.732 154.164 NaCl 25,000 unit In 0.45 % NaCl 1 250ml.bag @ 12 UNITS/KG/HR 6.913 mls/hr IV .Q24H [facility] Rx#: [id number] Sodium Chloride 0.9% 1, 160 000 ml @ 20 mls/hr IV . Q24H [facility] Rx#:[id number] Other: Voiding Method Toilet Toilet # Voids 2 2 2 - Labs CBC & Chem 7: 07/08/21 09:43 07/08/21 09:43 Labs: Abnormal Lab Results - Last 24 Hours (Table) 07/07/21 07/07/21 07/07/21 Range/Units 11:05 18:06 19:57 Hgb (11.4-16.0) gm/dL APTT 30.2 H 35.6 H (22.0-30.0) sec Troponin I 1.160 H* (0.000-0.034) ng/mL Total Protein (6.3-8.2) g/dL Albumin (3.5-5.0) g/dL 07/07/21 07/07/21 07/08/21 Range/Units 21:00 23:26 01:40 Hgb (11.4-16.0) gm/dL APTT 47.9 H (22.0-30.0) sec Troponin I 1.160 H* 1.120 H* (0.000-0.034) ng/mL Total Protein (6.3-8.2) g/dL Albumin (3.5-5.0) g/dL 07/08/21 07/08/21 07/08/21 Range/Units 09:43 09:43 09:43 Hgb 10.9 L (11.4-16.0) gm/dL APTT 35.4 H (22.0-30.0) sec Troponin I (0.000-0.034) ng/mL Total Protein 6.1 L (6.3-8.2) g/dL Albumin 3.0 L (3.5-5.0) g/dL
[2021-07-08] MEDS ORDERED: IV FLUID CONTINUATION 1,000 ML IV ONE (12:45)
[2021-07-08] MEDS ORDERED: LIDOCAINE 1% INJ 10MG/ML (20 ML MDV) ONE (12:46)
[2021-07-08] MEDS ORDERED: VERAPAMIL 2.5 MG/ML 2 ML AMP ONE (12:46)
[2021-07-08] MEDS ORDERED: HEPARIN SODIUM 1,000 UN/ML (10ML VL) ONE (12:47)
[2021-07-08] MEDS ORDERED: HEPARIN SODIUM,PORCINE 30 ML 30 ML ONE (12:47)
[2021-07-08] MEDS ORDERED: fentaNYL (PF) 50 MCG/ML 2 ML AMP ONE (12:48)
[2021-07-08] MEDS ORDERED: LIDOCAINE 1% INJ 10MG/ML (20 ML MDV) SQ ONE (12:53)
[2021-07-08] MEDS ORDERED: MIDAZOLAM 2 MG/2 ML VIAL IV ONE (12:54)
[2021-07-08] MEDS ORDERED: fentaNYL (PF) 50 MCG/ML 2 ML AMP IV ONE (12:54)
[2021-07-08] MEDS ORDERED: VERAPAMIL SYRINGE (5 MG/10 ML) INTRAARTER ONE (12:57)
[2021-07-08] MEDS ORDERED: HEPARIN SODIUM 1,000 UN/ML (10ML VL) IV ONE (13:02)
[2021-07-08] MEDS ORDERED: IOPAMIDOL-370 125ML BTL INJ ONE (13:07)
[2021-07-08] MEDS ORDERED: CLOPIDOGREL 75 MG TAB PO ONE (13:17)
[2021-07-08] MEDS ORDERED: RX INFO: IV CONTRAST WAS GIVEN 1 EACH MISC MISCELLANE PRN (13:17)
[2021-07-08] MEDS ORDERED: CLOPIDOGREL 75 MG TAB ONE (13:17)
--- NOTE | 2021-07-08 13:17 | P.CARDCATH ---
Description of Procedure: PROCEDURES PERFORMED: Left heart catheterization, bilateral coronary angiography INDICATION: Non-STEMI HISTORY: A she is pleasant 71-year-old female who started having nausea and felt she was having food poisoning approximately 1 week ago. Since that time she has had atypical chest pain which is worse with deep inspiration and appeared more pleuritic. She was found to have new Q waves with T-wave inversions inferiorly and echo showed inferior hypokinesis with flat troponins. 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 CONSENT:I have discussed the risks, benefits and alternative therapies for the above-mentioned procedure and for both sedation/analgesia as well as necessary blood product administration, if indicated, as they pertain to this patient. The patient has indicated understanding and acceptance of the risks and procedures discussed. PROCEDURE: After the risks, benefits and alternatives of the above mentioned procedure explained in detail with the patient, informed consent was obtained. Patient was taken to the catheterization lab and prepped and draped in usual fashion. 1% lidocaine was used to anesthetize the right radial artery. A 6- Niuean sheath was placed in the right radial artery using modified Seldinger technique. Left coronary angiography was performed with a 5-Niuean JL 3.5 catheter and right coronary angiography was performed with a 5-Niuean JR5 catheter in various views. A 5-Niuean FR5 catheter was inserted into the left ventricle and pressure measurements were obtained. The right radial sheath was removed and a TR band was placed with hemostasis achieved. The patient tolerated the procedure well. Patient was transported back to the post catheterization holding area in stable condition. Conscious Sedation: Patient was monitored under the direct supervision of vision of myself for conscious sedation using Versed and fentanyl for a total duration of 16 minutes HEMODYNAMICS: Aorta: 114/40 LV: 122/6, LVEDP 16 SELECTIVE CORONARY ARTERIOGRAPHY: LEFT MAIN: The left main is a large caliber vessel which bifurcates into the LAD and circumflex. There is no significant stenosis. LEFT ANTERIOR DESCENDING CORONARY ARTERY: LAD is a large caliber vessel which wraps around to the apex. There are mild luminal irregularities. LEFT CIRCUMFLEX CORONARY ARTERY: Left circumflex is a moderate caliber vessel with mild luminal irregularities. RIGHT CORONARY ARTERY: The right coronary artery is a large caliber vessel which gives off a PDA and PLV branch and is the dominant vessel. There is 100% proiximal RCA stenosis with minimal right to right collaterals and more extensive left to right collaterals. FINAL IMPRESSION: 1. CAD as described above with 100% proximal RCA stenosis with left to right collaterals and otherwise only mild CAD. 2. Normal left sided filling pressures PLAN: 1. Aggressive risk factor modification per most recent ACC/AHA guidelines. 2. Given late presenting VT which likely occurred 1 week ago with extensive collaterals and no current angina, no indication for PCI. Treat as NSTEMI with dual antiplatelets for 12 months.
[2021-07-08 20:19] LABS: Glucose,Whole Blood 102 mg/dL (75-99)
[2021-07-09] MEDS: ASPIRIN 325 MG TAB PO SCH (05:06)
[2021-07-09] MEDS ORDERED: HEPARIN SODIUM,PORCINE 10,000 UNIT in SODIUM CHLORIDE 0.9% 1,000 ML IRRIGATION PRN (07:00)
[2021-07-09] MEDS ORDERED: HEPARIN SODIUM,PORCINE 2,500 UNIT in SODIUM CHLORIDE 0.9% 250 ML IRRIGATION PRN (07:00)
[2021-07-09] MEDS: CLOPIDOGREL 75 MG TAB PO SCH (09:14)
[2021-07-09] MEDS: METOPROLOL TARTRATE 12.5 MG TAB PO SCH (09:14)
[2021-07-09] MEDS: PANTOPRAZOLE 40 MG/10 ML VIAL IVP SCH (09:15)
[2021-07-09] MEDS ORDERED: METOPROLOL TARTRATE 12.5 MG TAB PO STA (09:28)
[2021-07-09] MEDS: ATORVASTATIN 80 MG TAB PO SCH (09:33)
[2021-07-09 12:52] LABS: Appearance,Urine Clear (Clear); Bilirubin,Urine Negative (Negative); Blood,Urine Negative (Negative); Color,Urine Yellow; Glucose,Urine (UA) Negative (Negative); Ketones,Urine Negative (Negative); Leukocyte Esterase,Urine Negative (Negative); Nitrite,Urine Negative (Negative); Protein,Urine Negative (Negative); Specific Gravity,Urine 1.014 (1.001-1.035); Urobilinogen,Urine <2.0 mg/dL (<2.0)
--- NOTE | 2021-07-09 13:44 | P.PN ---
Subjective HISTORY OF PRESENTING ILLNESS Patient is a pleasant 71-year-old female with history of mild coronary artery disease by prior heart catheterization 2018, rheumatoid arthritis, remote tobacco abuse quit in 1992, hypertension, hyperlipidemia who follows with Dr. Perera. Patient states that approximately 1 week ago she started having some nausea and vomiting which occurred after eating a hot dog while she was playing cards. She initially took some Pepto-Bismol and was feeling somewhat shaky at the time as well as mild diaphoresis. She felt she got some sort of food poisoning from the hot dog and therefore waited for it to go away after a pproximately 8-12 hours. She denies any actual epigastric pain, diarrhea. Unfortunately since that time she has been having somewhat atypical right-sided chest pain which is worse with deep inspiration and has been fairly constant. She admits this does somewhat coming go however no obvious exacerbating maneuvers. It is mildly reproducible however not entirely. She therefore called EMS and presented to ER. Labs revealed troponin 1.4, 1.4, 1.3, proBNP 5410, Echocardiogram showed EF 40-45% with grade 1 diastolic dysfunction with inferior and inferolateral hypokinesis. EKG shows new Q waves in lead 3 and aVF compared to EKG from 2018 with T-wave inversions 3 and aVF and V6. There are additional Q waves V3 V4. Patient underwent cardiac catheterization with Dr. Cooley on 07/08/2021 which revealed coronary artery disease with 100% proximal RCA stenosis with left to right collaterals and otherwise only mild CAD. No indication for PCI 07/09/2021 Patient seen at bedside, no acute distress. She denies any chest pain or shortness of breath. Right radial artery cath site, clean, dry, 2+ pulses. Vital signs are stable. Labs reviewed. Patient is currently maintained on aspirin 81 mg daily, atorvastatin 80 mg daily, Plavix 75 mg daily, metoprolol tartrate 12.5 mg twice a day PHYSICAL EXAMINATION Vital signs reviewed. CONSTITUTIONAL: No apparent distress. HEENT:Neck Supple No JVD CHEST EXAMINATION: Lungs are clear to auscultation. No chest wall tenderness is noted on palpation or with deep breathing. HEART EXAMINATION: Regular rate and rhythm. S1, S2 heard. No murmurs, gallops or rub. ABDOMEN: Soft, nontender. Positive bowel sounds. EXTREMITIES: 2+ peripheral pulses, no lower extremity edema and no calf tenderness. NEUROLOGIC EXAMINATION: Patient is awake, alert and oriented x3. ASSESSMENT 1. Non-STEMI, suspect type I the etiology with likely late presenting inferior NH with new Q waves and inferior hypokinesis with flat troponins 2. 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 Recent episode of "food poisoning". Suspect nausea and vomiting were for angina symptoms 4. Mild cardiomyopathy EF 40-45% with inferior hypokinesis 5. Hypertension 6. Hyperlipidemia 7. Mild coronary artery disease by heart catheterization 2017 8. Rheumatoid arthritis PLAN -We will increase metoprolol tartrate to 25mg BID -Continue dual antiplatelet therapy with aspirin and Plavix, continue statin -Continue to monitor patient -Continue cardiac telemetry. -Hopefully discharge in the next 2448 hours Objective - Vital Signs Vital signs: Vital Signs Temp 96.9 F L 07/09/21 12:37 Pulse 61 07/09/21 12:37 Resp 16 07/09/21 12:37 BP 112/56 07/09/21 12:37 Pulse Ox 99 07/09/21 12:37 Intake & Output 07/08/21 07/09/21 07/09/21 18:59 06:59 18:59 Intake Total 340 240 Balance 340 240 Intake: IV 100 Oral 240 240 Other: Voiding Method Toilet Toilet # Voids 2 2 - Labs CBC & Chem 7: 07/08/21 09:43 07/08/21 09:43 Labs: Abnormal Lab Results - Last 24 Hours (Table) 07/08/21 Range/Units 20:09 POC Glucose (mg/dL) 102 H (75-99) mg/dL
--- NOTE | 2021-07-09 17:34 | P.PN ---
Subjective Progress Note Date: 07/09/21 History of present illness: This is a 71-year-old pleasant female who follows with Russ Briceno works under Dr. Bernabe. With a past medical history that is significant for previous myocardial infarction, rheumatoid arthritis, previous smoker smoked for approximately 20 years one pack a day quit in 1992. Patient states about 10 days ago she suffered from food poisoning she had nausea and vomiting for approximately 2 days. After the episode of food poisoning she developed epigastric pain. She called her primary care physician who instructed her to utilize Pepto-Bismol a few times a day. Patient states that she started to continue to have the epigastric pain on and off that would radiate to her shoulders. She also felt shaky at times. She does not have any difficulty breathing or any other episodes of nausea or vomiting. Patient did take her blood pressure and heart rate which she found her heart rate to be elevated in blood pressure to be low and again she contacted her primary care physician who stated that this could be normal due to all the vomiting. She was also instructed to start her PPI medication again which she found to have some relief however she would continue to have epigastric pain. Patient was awoken last night due to the epigastric pain and not getting any relief she decided to come to the emergency room. At this time patient is assessed in the emergency room with her son at the bedside. Patient states that she is not having any chest pain. No difficulty breathing nausea or vomiting. Patient does state that she does have some continued epigastric pain that is nonradiating. She is previously had a heart cath in the past that did not require any stents at that time. She does follow with Dr. Caden Bhandari. She is unsure of when her last echocardiogram was. 07/08: Patient is found sitting at the edge of the bed on 3 south in no acute distress. Patient states that her breathing has improved compared to yesterday. She is not having any epigastric pain. Patient is scheduled to have a cardiac cath today. Family is at the bedside. Patient remains afebrile, heart rate 62, respirations 16, blood pressure 123/68, pulse ox 95% on room air. 07/09: Patient is doing okay today, no chest pain no shortness of breath, appetite is good, patient does not have any new sleep disturbance, no aspirated event today, no palpitations, ambulating in the room, without difficulties. Patient was seen by cardiology, with recommendations to stay 1 more night, to monitor for the adjusted medications for the end STEMI. Recommendation is dual antiplatelets for one year, no coronary intervention needed for stenting, as the patient developed collaterals based on cardiac cath performed on 07/08/1903/19/2022, with 100% occlusive disease in the RCA. This has collateral circulation noted. Review Of Systems: Constitutional: No fever, no chills, no night sweats. No weight change. No weakness, fatigue or lethargy. No daytime sleepiness. EENT: No headache. No blurred vision or double vision, no loss of vision. No loss of Hearing, no ringing in the ears, no dizziness. No nasal drainage or congestion. No epistaxis. No sore throat. Lungs: No shortness of breath, cough, no sputum production. No wheezing. Cardiovascular: Reports epigastric pain, No chest pain, no lower extremity edema. No palpitations. No paroxysmal nocturnal dyspnea. No orthopnea. No lightheadedness or dizziness. No syncopal episodes. Abdominal: no abdominal discomfort. No nausea, vomiting. no diarrhea. No constipation. No bloody or tarry stools. no loss of appetite. Genitourinary: No dysuria, increased frequency, urgency. No urinary retention. Musculoskeletal: No myalgias. No muscle weakness, no gait dysfunction, no frequent falls. No back pain. No neck pain. Integumentary: No wounds, no lesions. No rash or pruritus. No unusual bruising. No change in hair or nails. Neurologic: No aphasia. No facial droop. No change in mentation. No head injury. No headache. No paralysis. No paresthesia. Psychiatric: No depression. No anxiety. No mood swings. Endocrine: No abnormal blood sugars. No weight change. No excessive sweating or thirst. Physical examination General Appearance: Alert, cooperative, no distress, this is a 71-year-old female appears stated age. Neck HEENT: Supple, no lymphadenopathy, no thyroid enlargement, no carotid bruits. Lungs: Clear to auscultation without crackles or wheezes no rhonchi, no deformity. Chest Wall: Chest wall normal expansion with deep inspiration no tenderness and no deformity was found on exam, no costochondral pain or discomfort. Heart: Regular rate and rhythm, S1, S2 normal, no murmur, rub or gallop. Back: Symmetric, no curvature, ROM normal, no CVA tenderness. Abdomen: Soft, non-tender, no rebound or rigidity, no hepatosplenomegaly. Extremities: Extremities normal, atraumatic, no cyanosis or edema. Pulses: 2+ and symmetric. Skin: Skin color, texture, tugor normal, no rashes or lesions. Neurologic: Alert oriented x3 cranial nerves II through XII intact, no motor deficit, no abnormal balance or gait Assessment and plan 1. Non-STEMI with epigastric pain, previous heart cath with no stents. Consult cardiology, continue heparin drip, obtain echocardiogram. Morphine 4 mg every 4 hours as needed. Troponins 3. 2. Epigastric pain. As noted above 3. Rheumatoid arthritis. Currently not on any medications, takes [id number] supplements follows with rheumatology out of town. 4. DVT prophylaxis. Currently on heparin drip 5. GI prophylaxis. Protonix CODE STATUS: Full code Patient was admitted for minimum 2 nights day. Discharge plan: To be determined more than likely home in the next 24 hours Current Medications Acetaminophen (Acetaminophen Tab 325 Mg Tab) 650 mg PO Q6HR PRN PRN Reason: Mild Pain or Fever > 100.5 Alprazolam (Alprazolam 0.25 Mg Tab) 0.25 mg PO Q6HR PRN PRN Reason: Mild Anxiety Alprazolam (Alprazolam 0.5 Mg Tab) 0.5 mg PO Q6HR PRN PRN Reason: Moderate Anxiety Aspirin (Aspirin 81 Mg) 81 mg PO DAILY [facility] Atorvastatin Calcium (Atorvastatin 80 Mg Tab) 80 mg PO DAILY [facility] Last Admin: 07/09/21 09:33 Dose: 80 mg Documented by: Clopidogrel Bisulfate (Clopidogrel 75 Mg Tab) 75 mg PO DAILY [facility] Last Admin: 07/09/21 09:14 Dose: 75 mg Documented by: Sodium Chloride (Saline 0.9%) 1,000 mls @ 20 mls/hr IV .Q24H [facility] Last Admin: 07/08/21 22:15 Dose: Not Given Documented by: Heparin Sodium (Porcine) 10, (000 unit/ Sodium Chloride) 1,001 mls @ 999 mls/hr IRRIGATION ONCE PRN PRN Reason: INTRA-OP Stop: 07/09/21 23:00 Heparin Sodium (Porcine) 2,500 (unit/ Sodium Chloride) 250.5 mls @ 250 mls/hr IRRIGATION ONCE PRN PRN Reason: INTRA-OP Stop: 07/09/21 23:00 Metoprolol Succinate (Metoprolol Succinate (Er) 25 Mg Tab.Er.24h) 25 mg PO DAILY [facility] Metoprolol Tartrate (Metoprolol Tartrate 25 Mg Tab) 25 mg PO BID [facility] Stop: 07/10/21 07:00 Miscellaneous Information (Rx Info: Iv Contrast Was Given 1 Each Misc) 1 each M ISCELLANE DAILY PRN PRN Reason: Per Protocol Stop: 07/10/21 13:17 Morphine Sulfate (Morphine Sulfate 4 Mg/Ml Syringe) 4 mg IV Q4HR PRN PRN Reason: Severe Pain Naloxone HCl (Naloxone 0.4 Mg/Ml 1 Ml Vial) 0.2 mg IV Q2M PRN PRN Reason: Opioid Reversal Nitroglycerin (Nitroglycerin Sl Tabs 0.4 Mg Tab) 0.4 mg SUBLINGUAL Q5M PRN PRN Reason: Chest Pain Pantoprazole Sodium (Pantoprazole 40 Mg/10 Ml Vial) 40 mg IVP DAILY [facility] Last Admin: 07/09/21 09:15 Dose: 40 mg Documented by: Laboratory Results - Last 24 Hours 07/08/21 07/09/21 20:09 10:00 POC Glucose (mg/dL) 102 H POC Glu [employer] Development Manager ID Tyler, Karma, Candy Urine Color Yellow Urine Appearance Clear Urine pH 6.0 Ur Specific [place] 1.014 Urine Protein Negative Urine Glucose (UA) Negative Urine Ketones Negative Urine Blood Negative Urine Nitrite Negative Urine Bilirubin Negative Urine Urobilinogen <2.0 Ur Leukocyte Esterase Negative Vital Signs Temp 96.9 F L 07/09/21 12:37 Pulse 68 07/09/21 17:30 Resp 18 07/09/21 17:30 BP 133/59 07/09/21 17:30 Pulse Ox 95 07/09/21 17:30 Intake & Output 07/08/21 07/09/21 07/09/21 18:59 06:59 18:59 Intake Total 340 760 Balance 340 760 Intake: IV 100 Oral 240 760 Other: Voiding Method Toilet Toilet Toilet # Voids 2 2 Objective - Vital Signs Vital signs: Vital Signs Temp 96.9 F L 07/09/21 12:37 Pulse 61 07/09/21 12:37 Resp 16 07/09/21 12:37 BP 112/56 07/09/21 12:37 Pulse Ox 99 07/09/21 12:37 Intake & Output 07/08/21 07/09/21 07/09/21 18:59 06:59 18:59 Intake Total 340 760 Balance 340 760 Intake: IV 100 Oral 240 760 Other: Voiding Method Toilet Toilet Toilet # Voids 2 2 - Labs CBC & Chem 7: 07/08/21 09:43 07/08/21 09:43 Labs: Abnormal Lab Results - Last 24 Hours (Table) 07/08/21 Range/Units 20:09 POC Glucose (mg/dL) 102 H (75-99) mg/dL
[2021-07-09] MEDS ORDERED: METOPROLOL TARTRATE 25 MG TAB PO SCH (21:00)
[2021-07-10] MEDS: SODIUM CHLORIDE 0.9% 1,000 ML IV SCH (00:51)
[2021-07-10] MEDS: ATORVASTATIN 80 MG TAB PO SCH (08:36)
[2021-07-10] MEDS: CLOPIDOGREL 75 MG TAB PO SCH (08:36)
[2021-07-10] MEDS: PANTOPRAZOLE 40 MG/10 ML VIAL IVP SCH (08:36)
[2021-07-10] MEDS ORDERED: ASPIRIN 81 MG PO SCH (09:00)
[2021-07-10] MEDS ORDERED: METOPROLOL SUCCINATE (ER) 25 MG TAB.ER.24H PO SCH (09:00)
[2021-07-10 09:24] VITALS: RESP 20
[2021-07-10] MEDS ORDERED: SPIRONOLACTONE 25 MG TAB PO SCH (09:30)
[2021-07-10 11:37] VITALS: BP 117/57; PULSE 62; TEMP 98.3
--- NOTE | 2021-07-10 11:55 | P.DS ---
Providers Date of admission: 07/07/21 04:32 Expected date of discharge: 07/10/21 Attending physician: Rohit Barnett Consults: 07/07/21 04:32 Consult Physician Routine Consulting Provider: Rojas Blount Consult Reason/Comments: nstemi Do you want consulting provider notified?: Yes Primary care physician: Zaki Bernabe [facility] Course: History of present illness: This is a 71-year-old pleasant female who follows with Russ Briceno works under Dr. Bernabe. With a past medical history that is significant for previous myocardial infarction, rheumatoid arthritis, previous smoker smoked for approximately 20 years one pack a day quit in 1992. Patient states about 10 days ago she suffered from food poisoning she had nausea and vomiting for elias roximately 2 days. After the episode of food poisoning she developed epigastric pain. She called her primary care physician who instructed her to utilize Pepto-Bismol a few times a day. Patient states that she started to continue to have the epigastric pain on and off that would radiate to her shoulders. She also felt shaky at times. She does not have any difficulty breathing or any other episodes of nausea or vomiting. Patient did take her blood pressure and heart rate which she found her heart rate to be elevated in blood pressure to be low and again she contacted her primary care physician who stated that this could be normal due to all the vomiting. She was also instructed to start her PPI medication again which she found to have some relief however she would continue to have epigastric pain. Patient was awoken last night due to the epigastric pain and not getting any relief she decided to come to the emergency room. At this time patient is assessed in the emergency room with her son at the bedside. Patient states that she is not having any chest pain. No difficulty breathing nausea or vomiting. Patient does state that she does have some continued epigastric pain that is nonradiating. She is previously had a heart cath in the past that did not require any stents at that time. She does follow with Dr. Caden Bhandari. She is unsure of when her last echocardiogram was. 07/08: Patient is found sitting at the edge of the bed on [address] in no acute distress. Patient states that her breathing has improved compared to yesterday. She is not having any epigastric pain. Patient is scheduled to have a cardiac cath today. Family is at the bedside. Patient remains afebrile, heart rate 62, respirations 16, blood pressure 123/68, pulse ox 95% on room air. 07/09: Patient is doing okay today, no chest pain no shortness of breath, appetite is good, patient does not have any new sleep disturbance, no aspirated event today, no palpitations, ambulating in the room, without difficulties. Patient was seen by cardiology, with recommendations to stay 1 more night, to monitor for the adjusted medications for the end STEMI. Recommendation is dual antiplatelets for one year, no coronary intervention needed for stenting, as the patient developed collaterals based on cardiac cath performed on 07/08/1903/19/2022, with 100% occlusive disease in the RCA. This has collateral circulation noted. 07/10: Patient denies having any chest pain or shortness of breath. During the night, patient had some right upper back and right shoulder pain. Daughter is at bedside and patient has been seen this morning and cleared for discharge by cardiology. Right radial wrist catheter site is clean, no hematoma. Patient will be discharged home in stable condition. Discharge diagnoses 1. Non-STEMI status post heart catheterization which revealed coronary artery disease with 100% proximal RCA stenosis and left to right collaterals and otherwise only mild CAD. No indication for PCI 2. Epigastric pain. 3. Rheumatoid arthritis. Discharge plan: Home Greater than 35 minutes was utilized and coordinating patient's discharge. Impression and plan of care have been directed as dictated by the signing physician. Micheline Becerra nurse practitioner acting as scribe for signing physician. Patient Condition at Discharge: Good Plan - Discharge Summary Discharge Rx Participant: Yes New Discharge Prescriptions: New Aspirin 81 mg PO DAILY 30 Days #30 tab Atorvastatin [Lipitor] 80 mg PO DAILY 30 Days #30 tab Nitroglycerin Sl Tabs [Nitrostat] 0.4 mg SUBLINGUAL Q5M PRN #25 tab PRN Reason: Chest Pain Spironolactone [Aldactone] 12.5 mg PO DAILY 30 Days #15 tab Clopidogrel [Plavix] 75 mg PO DAILY 30 Days #30 tab Metoprolol Succinate (ER) [Toprol XL] 25 mg PO DAILY 30 Days #30 tab Continue Folic Acid 0.8 mg PO DAILY Calcium Carbonate/Vitamin D3 [Calcium 600-Vit D3 62.5 Mcg (2,500 Iu)] 1 cap PO DAILY Magnesium Oxide [Mag-Ox] 400 mg PO DAILY Ferrous Sulfate [Iron (65 MG Elemental)] 325 mg PO DAILY Potassium Chloride [Potassium Chloride ER] 8 meq PO DAILY Discharge Medication List Calcium Carbonate/Vitamin D3 [Calcium 600-Vit D3 62.5 Mcg (2,500 Iu)] 1 cap PO DAILY 06/19/18 [History] Folic Acid 0.8 mg PO DAILY 06/19/18 [History] Ferrous Sulfate [Iron (65 MG Elemental)] 325 mg PO DAILY 07/07/21 [History] Magnesium Oxide [Mag-Ox] 400 mg PO DAILY 07/07/21 [History] Potassium Chloride [Potassium Chloride ER] 8 meq PO DAILY 07/07/21 [History] Clopidogrel [Plavix] 75 mg PO DAILY 30 Days #30 tab 07/09/21 [Rx] Aspirin 81 mg PO DAILY 30 Days #30 tab 07/10/21 [Rx] Atorvastatin [Lipitor] 80 mg PO DAILY 30 Days #30 tab 07/10/21 [Rx] Metoprolol Succinate (ER) [Toprol XL] 25 mg PO DAILY 30 Days #30 tab 07/10/21 [Rx] Nitroglycerin Sl Tabs [Nitrostat] 0.4 mg SUBLINGUAL Q5M PRN #25 tab 07/10/21 [Rx] Spironolactone [Aldactone] 12.5 mg PO DAILY 30 Days #15 tab 07/10/21 [Rx] Follow up Appointment(s)/Referral(s): Zaki Bernabe MD [Primary Care Provider] - 1 Week (or Russ Briceno, please call when office to make follow up appointment) Yadira Williamson MD [STAFF PHYSICIAN] - 07/23/21 3:00 pm ([facility] [place]) Patient Instructions/Handouts: *Surgery [facility] - After Heart Catheterization - Assistant Credit Manager Instructions Discharge Disposition: HOME SELF-CARE
--- NOTE | 2021-07-10 12:31 | P.PN ---
Subjective HISTORY OF PRESENTING ILLNESS Patient is a pleasant 71-year-old female with history of mild coronary artery disease by prior heart catheterization 2018, rheumatoid arthritis, remote tobacco abuse quit in 1992, hypertension, hyperlipidemia who follows with Dr. Perera. Patient states that approximately 1 week ago she started having some nausea and vomiting which occurred after eating a hot dog while she was playing cards. She initially took some Pepto-Bismol and was feeling somewhat shaky at the time as well as mild diaphoresis. She felt she got some sort of food poisoning from the hot dog and therefore waited for it to go away after a pproximately 8-12 hours. She denies any actual epigastric pain, diarrhea. Unfortunately since that time she has been having somewhat atypical right-sided chest pain which is worse with deep inspiration and has been fairly constant. She admits this does somewhat coming go however no obvious exacerbating maneuvers. It is mildly reproducible however not entirely. She therefore called EMS and presented to ER. Labs revealed troponin 1.4, 1.4, 1.3, proBNP 5410, Echocardiogram showed EF 40-45% with grade 1 diastolic dysfunction with inferior and inferolateral hypokinesis. EKG shows new Q waves in lead 3 and aVF compared to EKG from 2018 with T-wave inversions 3 and aVF and V6. There are additional Q waves V3 V4. Patient underwent cardiac catheterization with Dr. Cooley on 07/08/2021 which revealed coronary artery disease with 100% proximal RCA stenosis with left to right collaterals and otherwise only mild CAD. No indication for PCI 07/10/2021 Patient seen at bedside, no acute distress. She denies any chest pain or shortness of breath. Right radial artery cath site, clean, dry, 2+ pulses. Vital signs are stable. Labs reviewed. Patient is currently maintained on aspirin 81 mg daily, atorvastatin 80 mg daily, Plavix 75 mg daily, metoprolol tartrate 25 mg twice a day. Telemetry reviewed patient in sinus mechanism, heart rate 50s. PHYSICAL EXAMINATION Vital signs reviewed. CONSTITUTIONAL: No apparent distress. HEENT:Neck Supple No JVD CHEST EXAMINATION: Lungs are clear to auscultation. No chest wall tenderness is noted on palpation or with deep breathing. HEART EXAMINATION: Regular rate and rhythm. S1, S2 heard. No murmurs, gallops or rub. ABDOMEN: Soft, nontender. Positive bowel sounds. EXTREMITIES: 2+ peripheral pulses, no lower extremity edema and no calf tenderness. NEUROLOGIC EXAMINATION: Patient is awake, alert and oriented x3. ASSESSMENT 1. Non-STEMI, suspect type I the etiology with likely late presenting inferior [place] with new Q waves and inferior hypokinesis with flat troponins 2. 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 Recent episode of "food poisoning". Suspect nausea and vomiting were for angina symptoms 4. Mild cardiomyopathy EF 40-45% with inferior hypokinesis 5. Hypertension 6. Hyperlipidemia 7. Mild coronary artery disease by heart catheterization 2017 8. Rheumatoid arthritis PLAN -Add spironolactone 12.5mg daily -Continue metoprolol tartrate to 25mg BID -Continue dual antiplatelet therapy with aspirin and Plavix, continue statin -From cardiology perspective, patient stable for discharge home. Follow up with Dr. Williamson in one week Objective - Vital Signs Vital signs: Vital Signs Temp 98.3 F 07/10/21 11:35 Pulse 62 07/10/21 11:35 Resp 20 07/10/21 11:35 BP 117/57 07/10/21 11:35 Pulse Ox 97 07/10/21 11:35 Intake & Output 07/09/21 07/10/21 07/10/21 18:59 06:59 18:59 Intake Total 878 240 Balance 878 240 Intake: Oral 878 240 Other: Voiding Method Toilet Toilet # Voids 1 1 - Labs CBC & Chem 7: 07/08/21 09:43 07/08/21 09:43
== END 2021-07-10 13:20 | disposition home or self-care (01) | DRG 281 ==
LOC: EC 02:28 → SUPCPDRO 02:28 → 3SCARD 04:32
PROVIDERS: ADMIT Internal Medicine Geriatric Medicine; ATTEND Internal Medicine Geriatric Medicine
PROC: 4A023N7 Measurement of Cardiac Sampling and Pressure, Left Heart, Percutaneous Approach (ICD-10-PCS; principal; 2021-07-08 13:00)
PROC: B2111ZZ Fluoroscopy of Multiple Coronary Arteries using Low Osmolar Contrast (ICD-10-PCS; principal; 2021-07-08 13:00)
DX: I21.4 Non-ST elevation (NSTEMI) myocardial infarction (principal); I42.9 Cardiomyopathy, unspecified; I10 Essential (primary) hypertension; K21.9 Gastro-esophageal reflux disease without esophagitis; E78.5 Hyperlipidemia, unspecified; A05.9 Bacterial foodborne intoxication, unspecified; I08.1 Rheumatic disorders of both mitral and tricuspid valves; I27.20 Pulmonary hypertension, unspecified; I25.10 Atherosclerotic heart disease of native coronary artery without angina pectoris; E87.6 Hypokalemia; M06.9 Rheumatoid arthritis, unspecified; Z79.02 Long term (current) use of antithrombotics/antiplatelets; I25.2 Old myocardial infarction; Z79.82 Long term (current) use of aspirin; Z79.899 Other long term (current) drug therapy; Z82.3 Family history of stroke; Z82.49 Family history of ischemic heart disease and other diseases of the circulatory system; Z87.891 Personal history of nicotine dependence; Z90.710 Acquired absence of both cervix and uterus; Z88.5 Allergy status to narcotic agent; Z88.2 Allergy status to sulfonamides
CPT/HCPCS: 36415; 71046; 80053; 81003; 83690; 83735; 83880; 84484; 85025; 85610; 85730; 93005; 93306; 93458; 99291

== ENCOUNTER → 2021-08-21 | Outpatient (CLI) | payer MEDICARE ==
[2021-08-21 15:06] LABS: HDL Cholesterol 53.5 mg/dL (40.00-60.00); Triglycerides 43.1 mg/dL (0.00-149.00)
[2021-08-21 15:18] LABS: Chol/HDL Ratio 2.07 Ratio; LDL Cholesterol,Direct Reflex 46.3 mg/dL (0.00-129.00)
== END | disposition home or self-care (01) ==
LOC: LABWHC1 08:21
PROVIDERS: ATTEND Internal Medicine Cardiovascular Disease
DX: I25.10 Atherosclerotic heart disease of native coronary artery without angina pectoris (principal); E78.5 Hyperlipidemia, unspecified
CPT/HCPCS: 36415; 80061; 83721; 84450; 84460

== ENCOUNTER 2021-11-29 09:07 | Observation (INO) | payer MEDICARE ==
[2021-11-29] MEDS ORDERED: ASPIRIN 81 MG PO STA (09:32)
[2021-11-29 09:46] LABS: Basophils # (A) 0.1 k/uL (0-0.2); Basophils % (A) 1 %; Eosinophils # (A) 0.1 k/uL (0-0.7); Eosinophils % (A) 1 %; HCT 37.9 % (34.0-46.0); HGB 11.9 gm/dL (11.4-16.0); Lymphocytes # (A) 1.6 k/uL (1.0-4.8); Lymphocytes % (A) 17 %; MCH 26.7 pg (25.0-35.0); MCHC 31.5 g/dL (31.0-37.0); MCV 84.6 fL (80.0-100.0); Mean Platelet Volume 7.1; Monocytes # (A) 0.5 k/uL (0-1.0); Monocytes % (A) 6 %; Neutrophils # (A) 6.6 k/uL (1.3-7.7); Neutrophils % (A) 73 %; Platelet Count 302 k/uL (150-450); RBC 4.48 m/uL (3.80-5.40); RDW 15.3 % (11.5-15.5); WBC 9.1 k/uL (3.8-10.6)
--- NOTE | 2021-11-29 09:50 | XR ---
EXAMINATION TYPE: XR chest 2V DATE OF EXAM: 11/29/2021 COMPARISON: 07/07/2021 TECHNIQUE: PA and lateral views submitted. HISTORY: Chest FINDINGS: The lungs are clear and there is no pneumothorax, pleural effusion, or focal pneumonia. Hyperinflat ion compatible with COPD. Hypertrophic and degenerative changes spine. Atherosclerotic change aorta. Biapical pleural thickening. No overt failure. IMPRESSION: 1. No acute process.
[2021-11-29 09:52] LABS: Sodium 136 mmol/L (137-145)
[2021-11-29 09:55] LABS: African American GFR (CKD) >90 (>60 ml/min/1.73 sqM); Albumin 3.8 g/dL (3.5-5.0); Anion Gap 5 mmol/L; Blood Urea Nitrogen 16 mg/dL (7-17); Carbon Dioxide 29 mmol/L (22-30); Chloride 102 mmol/L (98-107); Glucose 101 mg/dL (74-99); Non-African American GFR(CKD) 88 (>60 ml/min/1.73 sqM); Total Bilirubin 0.6 mg/dL (0.2-1.3); Total Protein 7.3 g/dL (6.3-8.2)
[2021-11-29 09:56] LABS: ALT 15 U/L (4-34); Calcium 8.9 mg/dL (8.4-10.2)
[2021-11-29 10:02] LABS: INR 1.1 (<1.2); Partial Thromboplastin Time 24.1 sec (22.0-30.0); Prothrombin Time 12.1 sec (9.0-12.0)
[2021-11-29 10:03] LABS: AST 28 U/L (14-36); Alkaline Phosphatase 59 U/L (38-126); Potassium 4.6 mmol/L (3.5-5.1)
--- NOTE | 2021-11-29 11:32 | ED ---
Chest Pain HPI - General Chief Complaint: Chest Pain Stated Complaint: chest pain Time Seen by Provider: 11/29/21 09:13 Source: patient, RN notes reviewed Mode of arrival: ambulatory Limitations: no limitations - History of Present Illness Initial Comments: 31-year-old female presents emergency Department chief complaint of chest pain. Patient states that it started around 24 hours ago. Patient states it's is pleuritic in nature but pressure in her chest. Patient states that she had similar problems at beginning year in which she states she had a heart attack. She states she presented several days after symptoms. She's been placed on multiple medications given her current heart disease. Patient denies any leg pain leg swelling no history of PE. - Related Data Home Medications Medication Instructions Recorded Confirmed Calcium Carbonate/Vitamin D3 1 cap PO DAILY 06/19/18 07/07/21 [Calcium 600-Vit D3 62.5 Mcg (2,500 Iu)] Folic Acid 0.8 mg PO DAILY 06/19/18 07/07/21 Ferrous Sulfate [Iron (65 MG 325 mg PO DAILY 07/07/21 07/07/21 Elemental)] Magnesium Oxide [Mag-Ox] 400 mg PO DAILY 07/07/21 07/07/21 Potassium Chloride [Potassium 8 meq PO DAILY 07/07/21 07/07/21 Chloride ER] Previous Rx's Medication Instructions Recorded Clopidogrel [Plavix] 75 mg PO DAILY 30 Days #30 tab 07/09/21 Aspirin 81 mg PO DAILY 30 Days #30 tab 07/10/21 Atorvastatin [Lipitor] 80 mg PO DAILY 30 Days #30 tab 07/10/21 Metoprolol Succinate (ER) [Toprol 25 mg PO DAILY 30 Days #30 tab 07/10/21 XL] Nitroglycerin Sl Tabs [Nitrostat] 0.4 mg SUBLINGUAL Q5M PRN #25 tab 07/10/21 Spironolactone [Aldactone] 12.5 mg PO DAILY 30 Days #15 tab 07/10/21 Allergies Allergy/AdvReac Type Severity Reaction Status Date / Time codeine Allergy Unknown Verified 11/29/21 09:12 Sulfa (Sulfonamide Allergy Rash/Hives Verified 11/29/21 09:12 Antibiotics) tramadol Allergy Vomiting Verified 11/29/21 09:12 trimethoprim Allergy Rash/Hives Verified 11/29/21 09:12 Review of Systems ROS Statement: Those systems with pertinent positive or pertinent negative responses have been documented in the HPI. ROS Other: All systems not noted in ROS Statement are negative. EKG Findings - EKG Comments: EKG Findings:: EKG performed at 9:23 sinus bradycardia noted inverted T waves, Q waves in lead 3, aVF rate of 59 MO 146/84 QT / QTC 342/341 Past Medical History Past Medical History: Myocardial Infarction ([place]), Rheumatoid Arthritis ([place]) Additional Past Medical History / Comment(s): SEE DR MIGUELANGEL Melo&Annette, was told had "silent [place]" awaiting knee surgery Last Myocardial Infarction Date:: unknown History of Any Multi-Drug Resistant Organisms: None Reported Past Surgical History: Bladder Surgery, Hysterectomy Past Anesthesia/Blood Transfusion Reactions: No Reported Reaction Past Psychological History: No Psychological Hx Reported Smoking Status: Never smoker Past Alcohol Use History: Rare Past Drug Use History: None Reported - Past Family History Mother Family Medical History: Deep Vein Thrombosis (DVT) General Exam Limitations: no limitations General appearance: alert, in no apparent distress Head exam: Present: atraumatic, normocephalic, normal inspection Eye exam: Present: normal appearance, PERRL, EOMI. Absent: scleral icterus, conjunctival injection, periorbital swelling ENT exam: Present: normal exam, normal oropharynx, mucous membranes moist Neck exam: Present: normal inspection, full ROM. Absent: tenderness, meningismus, lymphadenopathy Respiratory exam: Present: normal lung sounds bilaterally. Absent: respiratory distress, wheezes, rales, rhonchi, stridor Cardiovascular Exam: Present: regular rate, normal rhythm, normal heart sounds. Absent: systolic murmur, diastolic murmur, rubs, gallop, clicks GI/Abdominal exam: Present: soft, normal bowel sounds. Absent: distended, tenderness, guarding, rebound, rigid Course Vital Signs 11/29/21 11/29/21 11/29/21 09:09 09:29 10:43 Temperature 97.9 F Pulse Rate 68 64 57 L Respiratory 20 18 18 Rate Blood Pressure 146/73 159/71 145/64 O2 Sat by Pulse 99 97 96 Oximetry Chest Pain MDM - MDM I did discuss case with Dr. buck who accepts admission recommends patient be consult to cardiology. Patient does have underlying severe disease. Disposition Clinical Impression: Chest pain Disposition: ADMITTED IP TO THIS HOSP Referrals: Zaki Bernabe MD [Primary Care Provider] - 1-2 days Time of Disposition: 11:08
[2021-11-29] MEDS ORDERED: NITROGLYCERIN SL TABS 0.4 MG TAB SUBLINGUAL PRN (11:33)
--- NOTE | 2021-11-29 14:30 | P.HPIM ---
History of Present Illness H&P Date: 11/29/21 History of present illness: This is a 71-year-old female who follows with Russ Briceno with a past medical history that is significant for previous myocardial infarction, rheumatoid arthritis, previous smoker smoked for approximately 20 years one pack a day quit in 1992. Patient had recent hospitalization in June 2021 and was diagnosed with a non-ST elevated myocardial infarction, cardiac catheterization revealed coronary artery disease with 100% proximal RCA stenosis and left to right collaterals, no indication for PCI. Patient states that she has had follow-up with Dr. Williamson but is out of some of her medications except for Plavix. She states she has called Dr. Williamson's office regarding refills of her medications but has not heard back. She is not specific about which medications are needed. Patient states that she was outside raking in her yard when in the house and developed pain with deep breathing in the right shoulder is where it started and thought it was related to raking but then she felt a weight on her chest on the right side and thought she should come in the hospital to be evaluated. Patient was found to be afebrile, heart rate 68, blood pressure 146/73, pulse ox 99% on room air. EKG sinus rhythm with no acute ST changes. CBC is unremarkable. INR 1.1. D-dimer 0.52. Sodium 136 otherwise all electrolytes and renal function within normal limits. Blood sugar 101. Liver function tests were normal. Troponin negative 2 draws. Chest x-ray shows no acute process. Patient is seen today in the emergency center waiting for a bed on the observation unit, cardiology consult and repeat troponin Review Of Systems: Constitutional: No fever, no chills, no night sweats. No weight change. No w eakness, fatigue or lethargy. No daytime sleepiness. EENT: No headache. No blurred vision or double vision, no loss of vision. No loss of Hearing, no ringing in the ears, no dizziness. No nasal drainage or congestion. No epistaxis. No sore throat. Lungs: No shortness of breath, cough, no sputum production. No wheezing. Cardiovascular: Reports right-sided chest pain, No chest pain, no lower extremity edema. No palpitations. No paroxysmal nocturnal dyspnea. No orthopnea. No lightheadedness or dizziness. No syncopal episodes. Abdominal: no abdominal discomfort. No nausea, vomiting. no diarrhea. No constipation. No bloody or tarry stools. no loss of appetite. Genitourinary: No dysuria, increased frequency, urgency. No urinary retention. Musculoskeletal: No myalgias. No muscle weakness, no gait dysfunction, no frequent falls. No back pain. No neck pain. Reports right-sided shoulder pain Integumentary: No wounds, no lesions. No rash or pruritus. No unusual bruising. No change in hair or nails. Neurologic: No aphasia. No facial droop. No change in mentation. No head injury. No headache. No paralysis. No paresthesia. Psychiatric: No depression. No anxiety. No mood swings. Endocrine: No abnormal blood sugars. No weight change. No excessive sweating or thirst. Social history: Patient is retired. 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 she lives alone. She was a previous smoker quitting in 1992. She smoked for 20 years one pack a day. Denies any EtOH or illicit drug use. Family history: She has 2 children who are healthy. She has one sister with history of coronary artery disease, her mother at 82 from stroke, father passed rate 84 due to Parkinson complications. Physical examination General Appearance: Alert, cooperative, no distress, this is a 71-year-old female appears stated age. Neck HEENT: Supple, no lymphadenopathy, no thyroid enlargement, no carotid bruits. Lungs: Clear to auscultation without crackles or wheezes no rhonchi, no deformity. Chest Wall: Chest wall normal expansion with deep inspiration no tenderness and no deformity was found on exam, no costochondral pain or discomfort. Heart: Regular rate and rhythm, S1, S2 normal, no murmur, rub or gallop. Back: Symmetric, no curvature, ROM normal, no CVA tenderness. Abdomen: Soft, non-tender, no rebound or rigidity, no hepatosplenomegaly. Extremities: Extremities normal, atraumatic, no cyanosis or edema. Pulses: 2+ and symmetric. Skin: Skin color, texture, tugor normal, no rashes or lesions. Neurologic: Alert oriented x3 cranial nerves II through XII intact, no motor deficit, no abnormal balance or gait Assessment and plan 1. Chest pain, noncardiac. Consult with cardiology, repeat troponin, continue cardiac monitoring. Continue patient on aspirin 81 mg daily, Lipitor 80 mg daily, Plavix 75 mg daily, Toprol-XL 25 mg daily 2. History of Non-STEMI in June 2021. 3. Rheumatoid arthritis. Currently not on any medications, takes [id number] supplements follows with rheumatology out of town. 4. Glaucoma. Continue eyedrops and vitamins. 5. DVT prophylaxis. Lovenox. 6. GI prophylaxis. Protonix CODE STATUS: Full code Patient was placed as Observation status. Discharge plan: home Impression and plan of care have been directed as dictated by the signing physician. Micheline Becerra nurse practitioner acting as scribe for signing physician. Past Medical History Past Medical History: Myocardial Infarction ([place]), Rheumatoid Arthritis ([place]) Additional Past Medical History / Comment(s): SEE DR WILLIAMSON H&P, was told had "silent [place]" awaiting knee surgery Last Myocardial Infarction Date:: unknown History of Any Multi-Drug Resistant Organisms: None Reported Past Surgical History: Bladder Surgery, Hysterectomy Past Anesthesia/Blood Transfusion Reactions: No Reported Reaction Past Psychological History: No Psychological Hx Reported Smoking Status: Never smoker Past Alcohol Use History: Rare Past Drug Use History: None Reported - Past Family History Mother Family Medical History: Deep Vein Thrombosis (DVT) Medications and Allergies Home Medications Medication Instructions Recorded Confirmed Type Folic Acid 0.8 mg PO DAILY 06/19/18 11/29/21 History Magnesium Oxide [Mag-Ox] 400 mg PO DAILY 07/07/21 11/29/21 History Clopidogrel [Plavix] 75 mg PO DAILY 30 Days #30 tab 07/09/21 11/29/21 Rx Aspirin 81 mg PO DAILY 30 Days #30 tab 07/10/21 11/29/21 Rx Atorvastatin [Lipitor] 80 mg PO DAILY 30 Days #30 tab 07/10/21 11/29/21 Rx Metoprolol Succinate (ER) [Toprol 25 mg PO DAILY 30 Days #30 tab 07/10/21 11/29/21 Rx XL] Turmeric Root Extract [Turmeric] 1,000 mg PO DAILY 11/29/21 11/29/21 History Vit C/E/Zn/Coppr/Lutein/Zeaxan 1 cap PO DAILY 11/29/21 11/29/21 History [Preservision Areds 2 Softgel] prednisoLONE ACETATE 1% OPHTH 1 drop BOTH EYES HS 11/29/21 11/29/21 History [Pred Forte 1%] Allergies Allergy/AdvReac Type Severity Reaction Status Date / Time codeine Allergy Unknown Verified 11/29/21 11:42 Sulfa (Sulfonamide Allergy Rash/Hives Verified 11/29/21 11:42 Antibiotics) tramadol Allergy Vomiting Verified 11/29/21 11:42 trimethoprim Allergy Rash/Hives Verified 11/29/21 11:42 Physical Exam Vitals: Vital Signs Temp Pulse Resp BP Pulse Ox 11/29/21 10:43 57 L 18 145/64 96 11/29/21 09:29 64 18 159/71 97 11/29/21 09:09 97.9 F 68 20 146/73 99 Intake and Output 11/28/21 11/29/21 11/29/21 22:59 06:59 14:59 Other: Weight 57.153 kg Results CBC & Chem 7: 11/29/21 09:34 11/29/21 09:34 Labs: Abnormal Lab Results - Last 24 Hours (Table) 11/29/21 11/29/21 Range/Units 09:34 09:34 PT 12.1 H (9.0-12.0) sec Sodium 136 L (137-145) mmol/L Glucose 101 H (74-99) mg/dL
[2021-11-29] MEDS ORDERED: prednisoLONE ACETATE 1% OPHTH DROPS 5 ML BTL BOTH EYES SCH (21:00)
[2021-11-30] MEDS ORDERED: PANTOPRAZOLE 40 MG TABLET PO SCH (07:30)
[2021-11-30 08:21] VITALS: BP 119/54; PULSE 64; RESP 18; TEMP 98.4
[2021-11-30] MEDS ORDERED: METOPROLOL SUCCINATE (ER) 25 MG TAB.ER.24H PO SCH (09:00)
[2021-11-30] MEDS ORDERED: ENOXAPARIN 40 MG/0.4 ML SYRINGE SQ SCH (09:00)
[2021-11-30] MEDS ORDERED: ASPIRIN 325 MG TAB PO SCH (09:00)
[2021-11-30] MEDS ORDERED: FOLIC ACID 1 MG TAB PO SCH (09:00)
[2021-11-30] MEDS ORDERED: ASPIRIN 81 MG PO SCH (09:00)
[2021-11-30] MEDS ORDERED: VIT A,C & E-LUTEIN-MINERALS 1 EACH TAB PO SCH (09:00)
[2021-11-30] MEDS ORDERED: MAGNESIUM OXIDE 400 MG TAB PO SCH (09:00)
[2021-11-30] MEDS ORDERED: CLOPIDOGREL 75 MG TAB PO SCH (09:00)
[2021-11-30] MEDS ORDERED: ATORVASTATIN 80 MG TAB PO SCH (09:00)
--- NOTE | 2021-11-30 11:01 | P.CRDCN ---
History of Present Illness Consult date: 11/30/21 History of present illness: HISTORY OF PRESENT ILLNESS: This is a 71-year-old female with a past medical history significant for coronary artery disease and hyperlipidemia. Patient follows in the office with Dr. Means. We have been asked to see the patient in consultation for chest pain. Patient examined at the bedside. Patient states on Friday she was out working in her yard and doing some raking. She states she was feeling fine at that time and was not expressing any chest pain or shortness of breath. She states that night when she went to bed she started having pain on the right side of her chest. She denied any radiation of the pain. She denied any shortness of breath. She denied any nausea or vomiting. She states the pain is worse with a deep breath and she is currently hesitant to take deep breaths because of the pain. The pain is all located on the right side of the chest. She denies any pain with chest wall palpation. The patient states her symptoms today are different then when she had a heart attack in June. * EKG reveals sinus mechanism with T wave inversions in lead III and aVF * Chest xray negative for acute process * Laboratory data: W BC 9.1. Hemoglobin 11.9. Platelet count 302. D-dimer 0.52. Sodium 136. Potassium 4.6. BUN 16. Creatinine 0.66. Troponin 0.013. 0.015. 0.012. * Current home cardiac medications include aspirin 81 mg daily, Lipitor 80 mg daily, Plavix 75 mg daily, and metoprolol succinate 25 mg daily * Most recent echocardiogram obtained in June 2021 revealed ejection fraction 40-45%, basal posterior, basal inferior, basal inferior septal, mid inferior, mid inferior septal LV wall hypokinesis, moderate to severe mitral regurgitation, mild tricuspid regurgitation, mild pulmonary hypertension * Cardiac catheterization history: June 2021 revealing 100% proximal RCA stenosis with left to right collaterals and otherwise only mild CAD. Normal left-sided filling pressures. REVIEW OF SYSTEMS: At the time of my exam: CONSTITUTIONAL: Denies fever or chills. HEENT: Denies blurred vision, vision changes, or eye pain. Denies hemoptysis CARDIOVASCULAR: Denies chest pain. Denies orthopnea. Denies PND. Denies palpitations RESPIRATORY: Denies shortness of breath. GASTROINTESTINAL: Denies abdominal pain. Denies nausea or vomiting. HEMATOLOGIC: Denies bleeding disorders. GENITOURINARY: Denies any blood in urine. SKIN: Denies pruitis. Denies rash. PHYSICAL EXAM: VITAL SIGNS: Reviewed. GENERAL: Well-developed in no acute distress. HEENT: Head is normocephalic. Pupils are equal, round. Sclerae anicteric. Mucous membranes of the mouth are moist. Neck supple. No JVD or thyromegaly LUNGS: Respirations even and unlabored. Lungs essentially clear to auscultation bilaterally. HEART: Regular rate and rhythm. S1 and S2 heard. Systolic murmur noted. ABDOMEN: Soft. Nondistended. Nontender. EXTREMITIES: Normal range of motion. No clubbing or cyanosis. Peripheral pulses intact. No lower extremity edema NEUROLOGIC: Awake and alert. Oriented x 3. ASSESSMENT: Chest pain, atypical, troponin negative x 3 Coronary artery disease with 100% proximal RCA stenosis Moderate to severe mitral regurgitation Hyperlipidemia PLAN: An acute coronary event has been ruled out Obtain 2-D echo to assess cardiac structure and function Increase metoprolol to 50 mg daily If 2-D echo does not reveal any new abnormalities, she may be discharged home from a cardiac standpoint and follow up on an outpatient basis Nurse practitioner note has been reviewed by physician. Signing provider agrees with the documented findings, assessment, and plan of care. Past Medical History Past Medical History: Myocardial Infarction ([place]), Rheumatoid Arthritis (RA) Additional Past Medical History / Comment(s): SEE DR MEANS H&P, was told had "silent MN" has had two knee replacements Last Myocardial Infarction Date:: 07/27/21 History of Any Multi-Drug Resistant Organisms: None Reported Past Surgical History: Bladder Surgery, Hysterectomy Additional Past Surgical History / Comment(s): cataract surgery and bilat knee replcmnts Past Anesthesia/Blood Transfusion Reactions: No Reported Reaction Past Psychological History: No Psychological Hx Reported Smoking Status: Never smoker Past Alcohol Use History: Rare Additional Past Alcohol Use History / Comment(s): quit smoking approx 1992, smoked from age 12 (2) 1ppd Past Drug Use History: None Reported - Past Family History Mother Family Medical History: Deep Vein Thrombosis (DVT) Medications and Allergies Home Medications Medication Instructions Recorded Confirmed Type Folic Acid 0.8 mg PO DAILY 06/19/18 11/29/21 History Magnesium Oxide [Mag-Ox] 400 mg PO DAILY 07/07/21 11/29/21 History Clopidogrel [Plavix] 75 mg PO DAILY 30 Days #30 tab 07/09/21 11/29/21 Rx Aspirin 81 mg PO DAILY 30 Days #30 tab 07/10/21 11/29/21 Rx Atorvastatin [Lipitor] 80 mg PO DAILY 30 Days #30 tab 07/10/21 11/29/21 Rx Metoprolol Succinate (ER) [Toprol 25 mg PO DAILY 30 Days #30 tab 07/10/21 11/29/21 Rx XL] Turmeric Root Extract [Turmeric] 1,000 mg PO DAILY 11/29/21 11/29/21 History Vit C/E/Zn/Coppr/Lutein/Zeaxan 1 cap PO DAILY 11/29/21 11/29/21 History [Preservision Areds 2 Softgel] prednisoLONE ACETATE 1% OPHTH 1 drop BOTH EYES HS 11/29/21 11/29/21 History [Pred Forte 1%] Allergies Allergy/AdvReac Type Severity Reaction Status Date / Time codeine Allergy Unknown Verified 11/29/21 11:42 Sulfa (Sulfonamide Allergy Rash/Hives Verified 11/29/21 11:42 Antibiotics) tramadol Allergy Vomiting Verified 11/29/21 11:42 trimethoprim Allergy Rash/Hives Verified 11/29/21 11:42 Physical Exam Vitals: Vital Signs Temp Pulse Pulse Resp BP BP Pulse Ox 11/30/21 02:50 98.2 F 73 17 127/70 98 11/29/21 21:45 99.0 F 67 17 156/78 95 11/29/21 19:55 70 11/29/21 19:54 70 18 150/66 98 11/29/21 16:48 80 18 137/71 99 11/29/21 14:38 76 17 143/65 98 11/29/21 10:43 57 L 18 145/64 96 11/29/21 09:29 64 18 159/71 97 11/29/21 09:09 97.9 F 68 20 146/73 99 Intake and Output 11/29/21 11/30/21 11/30/21 22:59 06:59 14:59 Other: # Voids 0 1 Weight 57.153 kg Results 11/29/21 09:34 11/29/21 09:34 Cardiac Enzymes 11/29/21 11/29/21 11/29/21 Range/Units 09:34 09:34 13:07 AST 28 (14-36) U/L Troponin I 0.013 0.015 (0.000-0.034) ng/mL 11/29/21 Range/Units 16:10 AST (14-36) U/L Troponin I 0.012 (0.000-0.034) ng/mL Coagulation 11/29/21 Range/Units 09:34 PT 12.1 H (9.0-12.0) sec APTT 24.1 (22.0-30.0) sec CBC 11/29/21 Range/Units 09:34 WBC 9.1 (3.8-10.6) k/uL RBC 4.48 (3.80-5.40) m/uL Hgb 11.9 (11.4-16.0) gm/dL Hct 37.9 (34.0-46.0) % Plt Count 302 (150-450) k/uL Comprehensive Metabolic Panel 11/29/21 Range/Units 09:34 Sodium 136 L (137-145) mmol/L Potassium 4.6 (3.5-5.1) mmol/L Chloride 102 (98-107) mmol/L Carbon Dioxide 29 (22-30) mmol/L BUN 16 (7-17) mg/dL Creatinine 0.66 (0.52-1.04) mg/dL Glucose 101 H (74-99) mg/dL Calcium 8.9 (8.4-10.2) mg/dL AST 28 (14-36) U/L ALT 15 (4-34) U/L Alkaline Phosphatase 59 (38-126) U/L Total Protein 7.3 (6.3-8.2) g/dL Albumin 3.8 (3.5-5.0) g/dL Current Medications Generic Name Dose Route Start Last Admin Trade Name Freq PRN Reason Stop Dose Admin Aspirin 81 mg 11/30/21 09:00 Aspirin 81 Mg PO DAILY [facility] Atorvastatin Calcium 80 mg 11/30/21 09:00 Atorvastatin 80 Mg Tab PO DAILY [facility] Clopidogrel Bisulfate 75 mg 11/30/21 09:00 Clopidogrel 75 Mg Tab PO DAILY [facility] Enoxaparin Sodium 40 mg 11/30/21 09:00 Enoxaparin 40 Mg/0.4 Ml Syringe SQ DAILY [facility] Folic Acid 1 mg 11/30/21 09:00 Folic Acid 1 Mg Tab PO DAILY [facility] Magnesium Oxide 400 mg 11/30/21 09:00 Magnesium Oxide 400 Mg Tab PO DAILY [facility] Metoprolol Succinate 25 mg 11/30/21 09:00 Metoprolol Succinate (Er) 25 Mg Tab.Er.24h PO DAILY [facility] Multivitamins/Minerals 1 each 11/30/21 09:00 Vit A,C & S-Hufpju-Volxyupj 1 Each Tab PO DAILY [facility] Nitroglycerin 0.4 mg 11/29/21 11:33 Nitroglycerin Sl Tabs 0.4 Mg Tab SUBLINGUAL Q5M PRN Chest Pain Pantoprazole Sodium 40 mg 11/30/21 07:30 Pantoprazole 40 Mg Tablet PO AC-BRKFST [facility] Prednisolone Acetate 1 drops 11/29/21 21:00 11/29/21 21:49 Prednisolone Acetate 1% Ophth Drops 5 Ml Btl BOTH EYES Not Given HS [facility] Intake and Output 11/29/21 11/30/21 11/30/21 22:59 06:59 14:59 Other: # Voids 0 1 Weight 57.153 kg 11/29/21 09:34 11/29/21 09:34
--- NOTE | 2021-11-30 11:26 | P.DS ---
Providers Date of admission: 11/29/21 11:33 Expected date of discharge: 11/30/21 Attending physician: Rohit Barnett Consults: 11/29/21 11:33 Consult Physician Urgent Consulting Provider: Duc Cooley Consult Reason/Comments: chest pain Do you want consulting provider notified?: Yes Primary care physician: Zaki Bañuelos [facility] Course: History of present illness: This is a 71-year-old female who follows with Russ Briceno with a past medical history that is significant for previous myocardial infarction, rheumatoid arthritis, previous smoker smoked for approximately 20 years one pack a day quit in 1992. Patient had recent hospitalization in June 2021 and was diagnosed with a non-ST elevated myocardial infarction, cardiac catheterization revealed coronary artery disease with 100% proximal RCA stenosis and left to right collaterals, no indication for PCI. Patient states that she has had follow-up with Dr. Williamson but is out of some of her medications except for Plavix. She states she has called Dr. Williamson's office regarding refills of her medications but has not heard back. She is not specific about which medications are needed. Patient states that she was outside raking in her yard when in the house and developed pain with deep breathing in the right shoulder is where it started and thought it was related to raking but then she felt a weight on her chest on the right side and thought she should come in the hospital to be evaluated. Patient was found to be afebrile, heart rate 68, blood pressure 146/73, pulse ox 99% on room air. EKG sinus rhythm with no acute ST changes. CBC is unremarkable. INR 1.1. D-dimer 0.52. Sodium 136 otherwise all electrolytes and renal function within normal limits. Blood sugar 101. Liver function tests were normal. Troponin negative 2 draws. Chest x-ray shows no acute process. Patient is seen today in the emergency center waiting for a bed on the observation unit, cardiology consult and repeat troponin. 11/30: Patient continues to have pain on the right side of her chest with deep breathing.Patient has been seen by Dr. Cooley this morning and cleared for discharge home, Toprol-XL was increased to 50 mg daily echocardiogram obtained. Patient will be discharged home today in stable condition. Discharge diagnoses 1. Chest pain, noncardiac. 2. History of Non-STEMI in June 2021. 3. Rheumatoid arthritis. 4. Glaucoma. Discharge plan: home Greater than 35 minutes was utilized and coordinating patient's discharge. Impression and plan of care have been directed as dictated by the signing physician. Micheline Becerra nurse practitioner acting as scribe for signing physician. Patient Condition at Discharge: Good Plan - Discharge Summary Discharge Rx Participant: No New Discharge Prescriptions: No Action Folic Acid 0.8 mg PO DAILY Magnesium Oxide [Mag-Ox] 400 mg PO DAILY Aspirin 81 mg PO DAILY 30 Days #30 tab Atorvastatin [Lipitor] 80 mg PO DAILY 30 Days #30 tab prednisoLONE ACETATE 1% OPHTH [Pred Forte 1%] 1 drop BOTH EYES HS Vit C/E/Zn/Coppr/Lutein/Zeaxan [Preservision Areds 2 Softgel] 1 cap PO DAILY Clopidogrel [Plavix] 75 mg PO DAILY 30 Days #30 tab Metoprolol Succinate (ER) [Toprol XL] 25 mg PO DAILY 30 Days #30 tab Turmeric Root Extract [Turmeric] 1,000 mg PO DAILY Discharge Medication List Folic Acid 0.8 mg PO DAILY 06/19/18 [History] Magnesium Oxide [Mag-Ox] 400 mg PO DAILY 07/07/21 [History] Clopidogrel [Plavix] 75 mg PO DAILY 30 Days #30 tab 07/09/21 [Rx] Aspirin 81 mg PO DAILY 30 Days #30 tab 07/10/21 [Rx] Atorvastatin [Lipitor] 80 mg PO DAILY 30 Days #30 tab 07/10/21 [Rx] Metoprolol Succinate (ER) [Toprol XL] 25 mg PO DAILY 30 Days #30 tab 07/10/21 [Rx] Turmeric Root Extract [Turmeric] 1,000 mg PO DAILY 11/29/21 [History] Vit C/E/Zn/Coppr/Lutein/Zeaxan [Preservision Areds 2 Softgel] 1 cap PO DAILY 11/29/21 [History] prednisoLONE ACETATE 1% OPHTH [Pred Forte 1%] 1 drop BOTH EYES HS 11/29/21 [History] Follow up Appointment(s)/Referral(s): Zaki Bernabe MD [Primary Care Provider] - 1-2 days
[2021-11-30 11:41] LABS: HDL Cholesterol 50.3 mg/dL (40.00-60.00); Triglycerides 34.9 mg/dL (0.00-149.00)
[2021-11-30 12:05] LABS: Chol/HDL Ratio 2.35 Ratio; LDL Cholesterol,Direct Reflex 54.6 mg/dL (0.00-129.00)
--- NOTE | 2021-11-30 13:06 | CA ---
Transthoracic Echo Report Name: Mishel Mcknight Age: 71 Gender: F : 1950 Exam Date: 11/30/2021 10:14 Exam Location: [place] [facility] Ht (in): 60 Wt (lb): 130 Ordering Physician: Zehra Renee Attending/Referring Phys: [id number], Thelma Slasher Tender Jasmine Galdamez, CATIE Procedure CPT: Indications: LV function Cardiac Hx: Technical Quality: Good Contrast 1: Total Dose (mL): Contrast 2: N/A Total Dose (mL): MEASUREMENTS (Male / Female) Normal Values 2D ECHO LV Diastolic Diameter PLAX 5.0 cm 4.2 - 5.9 / 3.9 - 5.3 cm LV Systolic Diameter PLAX 3.8 cm IVS Diastolic Thickness 1.1 cm 0.6 - 1.0 / 0.6 - 0.9 cm LVPW Diastolic Thickness 1.3 cm 0.6 - 1.0 / 0.6 - 0.9 cm LV Relative Wall Thickness 0.5 RV Internal Dim ED PLAX 3.3 cm LA Systolic Diameter LX 3.9 cm 3.0 - 4.0 / 2.7 - 3.8 cm LA Volume 50.5 cm??? 18 - 58 / 22 - 52 cm??? M-MODE Aortic Root Diameter MM 3.1 cm LA Systolic Diameter MM 4.3 cm LA Ao Ratio MM 1.4 MV E Point Septal Separation 0.7 cm AV Cusp Separation MM 2.0 cm DOPPLER MV Area PHT 3.1 cm??? Mitral E Point Velocity 75.6 cm/s Mitral A Point Velocity 84.2 cm/s Mitral E to A Ratio 0.9 MV Deceleration Time 241.3 ms MV E' Velocity 5.0 cm/s Mitral E to MV E' Ratio 15.1 TR Peak Velocity 253.0 cm/s TR Peak Gradient 25.6 mmHg Right Ventricular Systolic Press 29.7 mmHg FINDINGS Left Ventricle Left ventricular ejection fraction is estimated at 45-50%. Inferior basal hypokinesis Right Ventricle Normal right ventricular size and function. Right ventricular systolic pressure within normal limits. Right Atrium Normal right atrial size. Left Atrium Mildly increased left atrial diameter. Mitral Valve Structurally normal mitral valve. Mild mitral regurgitation. Aortic Valve Trileaflet aortic valve. No aortic valve stenosis or regurgitation. Tricuspid Valve Structurally normal tricuspid valve. Mild tricuspid regurgitation. Pulmonic Valve Structurally normal pulmonic valve. Pericardium Normal pericardium. Aorta Normal size aortic root and proximal ascending aorta. CONCLUSIONS Left ventricular ejection fraction 45-50% Basal inferior and inferolateral hypokinesis Mild mitral regurgitation Mild tricuspid regurgitation No pericardial effusion Previewed by: Dr. Duc Cooley DO (Electronically Signed) Final Date: 30 November 2021 13:05
[2021-12-01] MEDS ORDERED: METOPROLOL SUCCINATE (ER) 50 MG TAB.ER.24H PO SCH (09:00)
== END 2021-11-30 14:25 | disposition home or self-care (01) ==
LOC: EC 09:07 → 6NMEDSUR 11:33
PROVIDERS: ADMIT Internal Medicine Geriatric Medicine; ATTEND Internal Medicine Geriatric Medicine
DX: R07.89 Other chest pain (principal); I25.10 Atherosclerotic heart disease of native coronary artery without angina pectoris; I08.1 Rheumatic disorders of both mitral and tricuspid valves; I25.2 Old myocardial infarction; M06.9 Rheumatoid arthritis, unspecified; E78.5 Hyperlipidemia, unspecified; H40.9 Unspecified glaucoma; Z79.02 Long term (current) use of antithrombotics/antiplatelets; Z79.82 Long term (current) use of aspirin; Z79.899 Other long term (current) drug therapy; Z88.1 Allergy status to other antibiotic agents; Z88.2 Allergy status to sulfonamides; Z88.5 Allergy status to narcotic agent; Z90.710 Acquired absence of both cervix and uterus; Z87.891 Personal history of nicotine dependence; I27.20 Pulmonary hypertension, unspecified; Z96.653 Presence of artificial knee joint, bilateral; Z98.49 Cataract extraction status, unspecified eye; Z98.890 Other specified postprocedural states; Z82.49 Family history of ischemic heart disease and other diseases of the circulatory system; Z82.3 Family history of stroke; Z82.0 Family history of epilepsy and other diseases of the nervous system
CPT/HCPCS: 96372; 99285; 36415; 93005; 93306; 85379; 80061; 80053; 83735; 84484; 85025; 85610; 85730; 83721; 71046; G0378 ×2; J1650

== ENCOUNTER 2022-07-21 11:15 | Observation (INO) | payer MEDICARE ==
[2022-07-21] MEDS ORDERED: NITROGLYCERIN OINT 1 INCH/GM PACKET TOPICAL STA (11:30)
[2022-07-21] MEDS ORDERED: ASPIRIN 81 MG PO STA (11:30)
--- NOTE | 2022-07-21 11:32 | ED ---
General Adult HPI - General Chief complaint: Chest Pain Stated complaint: chest pain Time Seen by Provider: 07/21/22 11:22 Source: patient, family, RN notes reviewed Mode of arrival: ambulatory Limitations: no limitations - History of Present Illness Initial comments: Patient is a pleasant 72-year-old female presenting to the emergency department with concerns with chest discomfort. Onset of symptoms was 2 days ago. Discomfort has slowly been increasing. Discomfort feels like an ache right sternal region without radiation. There is some minimal associated dyspnea. No nausea. No diaphoresis. No cough or congestion. Patient does have history of similar symptoms once previously however unclear why. - Related Data Home Medications Medication Instructions Recorded Confirmed Folic Acid 0.8 mg PO DAILY 06/19/18 11/29/21 Magnesium Oxide [Mag-Ox] 400 mg PO DAILY 07/07/21 11/29/21 Turmeric Root Extract [Turmeric] 1,000 mg PO DAILY 11/29/21 11/29/21 Vit C/E/Zn/Coppr/Lutein/Zeaxan 1 cap PO DAILY 11/29/21 11/29/21 [Preservision Areds 2 Softgel] prednisoLONE ACETATE 1% OPHTH 1 drop BOTH EYES HS 11/29/21 11/29/21 [Pred Forte 1%] Previous Rx's Medication Instructions Recorded Clopidogrel [Plavix] 75 mg PO DAILY 30 Days #30 tab 07/09/21 Aspirin 81 mg PO DAILY 30 Days #30 tab 07/10/21 Atorvastatin [Lipitor] 80 mg PO DAILY 30 Days #30 tab 11/30/21 Metoprolol Succinate (ER) [Toprol 50 mg PO DAILY #30 tab 11/30/21 XL] Allergies Allergy/AdvReac Type Severity Reaction Status Date / Time codeine Allergy Unknown Verified 07/21/22 11:21 Sulfa (Sulfonamide Allergy Rash/Hives Verified 07/21/22 11:21 Antibiotics) tramadol Allergy Vomiting Verified 07/21/22 11:21 trimethoprim Allergy Rash/Hives Verified 07/21/22 11:21 Review of Systems ROS Statement: Those systems with pertinent positive or pertinent negative responses have been documented in the HPI. ROS Other: All systems not noted in ROS Statement are negative. Constitutional: Denies: fever Eyes: Denies: eye pain ENT: Denies: ear pain Respiratory: Reports: as per HPI. Denies: cough Cardiovascular: Reports: as per HPI, chest pain Endocrine: Denies: fatigue Gastrointestinal: Denies: abdominal pain Genitourinary: Denies: urgency Musculoskeletal: Denies: back pain Skin: Denies: rash Neurological: Denies: weakness Past Medical History Past Medical History: Myocardial Infarction ([place]), Rheumatoid Arthritis ([place]) Additional Past Medical History / Comment(s): SEE DR MEANS H&P, was told had "silent [place]" has had two knee replacements Last Myocardial Infarction Date:: 07/27/21 History of Any Multi-Drug Resistant Organisms: None Reported Past Surgical History: Bladder Surgery, Hysterectomy Additional Past Surgical History / Comment(s): cataract surgery and bilat knee replcmnts Past Anesthesia/Blood Transfusion Reactions: No Reported Reaction Past Psychological History: No Psychological Hx Reported Smoking Status: Never smoker Past Alcohol Use History: Rare Past Drug Use History: None Reported - Past Family History Mother Family Medical History: Deep Vein Thrombosis (DVT) General Exam Limitations: no limitations General appearance: alert, in no apparent distress Head exam: Present: normocephalic Eye exam: Present: normal appearance Neck exam: Present: normal inspection Respiratory exam: Present: normal lung sounds bilaterally. Absent: chest wall tenderness Cardiovascular Exam: Present: regular rate, normal rhythm Expanded Peripheral pulses: 2+: Radial (R), Radial (L), Posterior Tibialis (R), Posterior Tibialis (L) GI/Abdominal exam: Present: soft. Absent: tenderness Extremities exam: Present: normal inspection. Absent: pedal edema, calf tenderness Neurological exam: Present: alert Psychiatric exam: Present: normal affect, normal mood Skin exam: Present: normal color Course Vital Signs 07/21/22 11:16 Temperature 98 F Pulse Rate 64 Respiratory 18 Rate Blood Pressure 177/81 O2 Sat by Pulse 100 Oximetry EKG Findings - EKG Results: EKG: interpreted by ERMD (Inferior Q waves. T-wave inversion 3 and aVF.), sinus rhythm, normal axis Medical Decision Making - Medical Decision Making Was pt. sent in by a medical professional or institution (, PA, COTTON CLASSER AIDE, urgent care, hospital, or retirement...) When possible be specific @ -No Did you speak to anyone other than the patient for history (EMS, parent, family, police, friend...)? What history was obtained from this source @ -Family is present and helps provide history regarding symptoms and patient's personal history Did you review nursing and triage notes (agree or disagree)? Why? @ -I reviewed and agree with nursing and triage notes Were old charts reviewed (outside hosp., previous admission, EMS record, old EKG, old radiological studies, urgent care reports/EKG's, retirement records)? Report findings @ -No old charts were reviewed Differential Diagnosis (chest pain, altered mental status, abdominal pain women, abdominal pain men, vaginal bleeding, weakness, fever, dyspnea, syncope, headache, dizziness, GI bleed, back pain, seizure, CVA, palpatations, mental health)? @ -Differential Chest Pain: Stable Angina, Unstable Angina, STEMI, NSTEMI Aortic Dissection, Pneumothorax, Musculoskeletal, Esophageal Spasm GERD, Cholecystitis, Pancreatitis, Zoster, this is not meant to be an all-inclusive list. EKG interpreted by me (3pts min.). @ -As above X-rays interpreted by me (1pt min.). @ -chest X-ray shows no acute process CT interpreted by me (1pt min.). @ -None done U/S interpreted by me (1pt. min.). @ -None done What testing was considered but not performed or refused? (CT, X-rays, U/S, labs)? Why? @ -Consider CT however d-dimer adjusted for age What meds were considered but not given or refused? Why? @ -None Did you discuss the management of the patient with other professionals (professionals i.e. , PA, COTTON CLASSER AIDE, lab, RT, psych nurse, psych social worker, license examiner, t eacher, adult parole officer, case monitor)? Give summary @ -Case was discussed with Dr. Barreto, covering for Dr. Bernabe, who will admit. Was smoking cessation discussed for >3mins.? @ -No Was critical care preformed (if so, how long)? @ -No Were there social determinants of health that impacted care today? How? (Homelessness, low income, unemployed, alcoholism, drug addiction, transportation, low edu. Level, literacy, decrease access to med. care, fdc, rehab)? @ -No Was there de-escalation of care discussed even if they declined (Discuss DNR or withdrawal of care, Hospice)? DNR status @ -No What co-morbidities impacted this encounter? (DM, HTN, Smoking, COPD, CAD, Cancer, CVA, ARF, Chemo, Hep., AIDS, mental health diagnosis, sleep apnea, morbid obesity)? @ -None Was patient admitted / discharged? Hospital course, mention meds given and route, prescriptions, significant lab abnormalities, going to OR and other pertinent info. @ -He should reevaluated and improved. Patient and family updated on results and plan. Patient will be admitted. Admission orders written. Undiagnosed new problem with uncertain prognosis? @ -No Drug Therapy requiring intensive monitoring for toxicity (Heparin, Nitro, Insulin, Cardizem)? @ -No Were any procedures done? @ -No Diagnosis/symptom? @ -Acute chest pain Acute, or Chronic, or Acute on Chronic? @ -Acute Uncomplicated (without systemic symptoms) or Complicated (systemic symptoms)? @ -default Side effects of treatment? @ -No Exacerbation, Progression, or Severe Exacerbation? @ -No Poses a threat to life or bodily function? How? (Chest pain, [place], [place], pneumonia, PE, COPD, DKA, ARF, appy, cholecystitis, CVA, Diverticulitis, Homicidal, Suicidal, threat to staff... and all critical care pts) @ -Potential threat to life and bodily function if chest discomfort turns out to be cardiac - Lab Data Result diagrams: 07/21/22 12:00 07/21/22 12:00 Lab Results 07/21/22 07/21/22 07/21/22 Range/Units 12:00 12:00 12:00 WBC 9.9 (3.8-10.6) k/uL RBC 4.65 (3.80-5.40) m/uL Hgb 11.6 (11.4-16.0) gm/dL Hct 36.4 (34.0-46.0) % MCV 78.1 L (80.0-100.0) fL MCH 24.9 L (25.0-35.0) pg MCHC 31.9 (31.0-37.0) g/dL RDW 14.8 (11.5-15.5) % Plt Count 267 (150-450) k/uL MPV 6.7 Neutrophils % 79 % Lymphocytes % 11 % Monocytes % 8 % Eosinophils % 0 % Basophils % 1 % Neutrophils # 7.8 H (1.3-7.7) k/uL Lymphocytes # 1.1 (1.0-4.8) k/uL Monocytes # 0.7 (0-1.0) k/uL Eosinophils # 0.0 (0-0.7) k/uL Basophils # 0.1 (0-0.2) k/uL PT 12.8 H (9.0-12.0) sec INR 1.2 H (<1.2) APTT 24.9 (22.0-30.0) sec D-Dimer 0.73 H (<0.60) mg/L FEU Sodium 137 (137-145) mmol/L Potassium 4.2 (3.5-5.1) mmol/L Chloride 103 (98-107) mmol/L Carbon Dioxide 27 (22-30) mmol/L Anion Gap 7 mmol/L BUN 14 (7-17) mg/dL Creatinine 0.54 (0.52-1.04) mg/dL Est GFR (CKD-EPI)AfAm >90 (>60 ml/min/1.73 sqM) Est GFR (CKD-EPI)NonAf >90 (>60 ml/min/1.73 sqM) Glucose 112 H (74-99) mg/dL Calcium 8.7 (8.4-10.2) mg/dL Magnesium 2.0 (1.6-2.3) mg/dL Total Bilirubin 0.4 (0.2-1.3) mg/dL AST 20 (14-36) U/L ALT 17 (4-34) U/L Alkaline Phosphatase 78 (38-126) U/L Troponin I (0.000-0.034) ng/mL Total Protein 7.0 (6.3-8.2) g/dL Albumin 3.7 (3.5-5.0) g/dL 07/21/22 Range/Units 12:00 WBC (3.8-10.6) k/uL RBC (3.80-5.40) m/uL Hgb (11.4-16.0) gm/dL Hct (34.0-46.0) % MCV (80.0-100.0) fL MCH (25.0-35.0) pg MCHC (31.0-37.0) g/dL RDW (11.5-15.5) % Plt Count (150-450) k/uL MPV Neutrophils % % Lymphocytes % % Monocytes % % Eosinophils % % Basophils % % Neutrophils # (1.3-7.7) k/uL Lymphocytes # (1.0-4.8) k/uL Monocytes # (0-1.0) k/uL Eosinophils # (0-0.7) k/uL Basophils # (0-0.2) k/uL PT (9.0-12.0) sec INR (<1.2) APTT (22.0-30.0) sec D-Dimer (<0.60) mg/L FEU Sodium (137-145) mmol/L Potassium (3.5-5.1) mmol/L Chloride (98-107) mmol/L Carbon Dioxide (22-30) mmol/L Anion Gap mmol/L BUN (7-17) mg/dL Creatinine (0.52-1.04) mg/dL Est GFR (CKD-EPI)AfAm (>60 ml/min/1.73 sqM) Est GFR (CKD-EPI)NonAf (>60 ml/min/1.73 sqM) Glucose (74-99) mg/dL Calcium (8.4-10.2) mg/dL Magnesium (1.6-2.3) mg/dL Total Bilirubin (0.2-1.3) mg/dL AST (14-36) U/L ALT (4-34) U/L Alkaline Phosphatase (38-126) U/L Troponin I <0.012 (0.000-0.034) ng/mL Total Protein (6.3-8.2) g/dL Albumin (3.5-5.0) g/dL Disposition Clinical Impression: Chest pain Disposition: ADMITTED IP TO THIS HOSP Is patient prescribed a controlled substance at d/c from ED?: No Referrals: Zaki Bernabe MD [Primary Care Provider] - 1-2 days Time of Disposition: 12:56
--- NOTE | 2022-07-21 12:07 | XR ---
EXAMINATION TYPE: XR chest 2V DATE OF EXAM: 07/21/2022 COMPARISON: 12/17/2021 HISTORY: Chest pain TECHNIQUE: Frontal and lateral views of the chest are obtained. FINDINGS: There is no focal air space opacity, pleural effusion, or pneumothorax seen. The heart is mildly enlarged but the pulmonary vasculature is not appear congested.. The osseous structures are intact. IMPRESSION: No acute cardiopulmonary process. No interval change.
[2022-07-21 12:18] LABS: Basophils # (A) 0.1 k/uL (0-0.2); Basophils % (A) 1 %; Eosinophils % (A) 0 %; HCT 36.4 % (34.0-46.0); HGB 11.6 gm/dL (11.4-16.0); Lymphocytes # (A) 1.1 k/uL (1.0-4.8); Lymphocytes % (A) 11 %; MCH 24.9 pg (25.0-35.0); MCHC 31.9 g/dL (31.0-37.0); MCV 78.1 fL (80.0-100.0); Mean Platelet Volume 6.7; Monocytes # (A) 0.7 k/uL (0-1.0); Monocytes % (A) 8 %; Neutrophils # (A) 7.8 k/uL (1.3-7.7); Neutrophils % (A) 79 %; Platelet Count 267 k/uL (150-450); RBC 4.65 m/uL (3.80-5.40); RDW 14.8 % (11.5-15.5); WBC 9.9 k/uL (3.8-10.6)
[2022-07-21 12:35] LABS: INR 1.2 (<1.2); Partial Thromboplastin Time 24.9 sec (22.0-30.0); Prothrombin Time 12.8 sec (9.0-12.0)
[2022-07-21 12:40] LABS: ALT 17 U/L (4-34); AST 20 U/L (14-36); African American GFR (CKD) >90 (>60 ml/min/1.73 sqM); Albumin 3.7 g/dL (3.5-5.0); Alkaline Phosphatase 78 U/L (38-126); Anion Gap 7 mmol/L; Blood Urea Nitrogen 14 mg/dL (7-17); Calcium 8.7 mg/dL (8.4-10.2); Carbon Dioxide 27 mmol/L (22-30); Chloride 103 mmol/L (98-107); Glucose 112 mg/dL (74-99); Non-African American GFR(CKD) >90 (>60 ml/min/1.73 sqM); Potassium 4.2 mmol/L (3.5-5.1); Sodium 137 mmol/L (137-145); Total Bilirubin 0.4 mg/dL (0.2-1.3)
[2022-07-21] MEDS ORDERED: NITROGLYCERIN SL TABS 0.4 MG TAB SUBLINGUAL PRN (12:58)
--- NOTE | 2022-07-21 14:27 | P.CRDCN ---
History of Present Illness Consult date: 07/21/22 Chief complaint: Chest discomfort History of present illness: The patient is a 72-year-old female patient with a past medical history significant for coronary artery disease and known chronic total occlusion of the right coronary artery based on heart catheterization was performed in 2021 as well as hypertension and dyslipidemia presented to the emergency department complaining of chest discomfort. The patient was in her usual state of health until today. She describes the pain as sharp kind of discomfort in the middle of the chest with no radiation to the arms or neck or shoulders or back and no associated symptoms of shortness of breath or dizziness or lightheadedness or presyncope or syncope. Clearly she stated that the chest discomfort is worse was deep breath and also worse with laying flat and better with sitting and leaning forward, concerning for what it seems to be possible a component of pericarditis. At the same time when she presented to the hospital her pressure has been elevated and consistent with hypertension crisis. She stated that she has been compliant with her medication. She underwent further workup including EKG showing sinus rhythm with no significant ST or T-wave abnormalities and also first set of cardiac enzyme came in to be unremarkable. Currently she is chest pain-free. No history of fever or chills and no history of upper respiratory infection. The echo from 2021 revealed mildly impaired LV function was EF between 45-50% with inferobasal hypokinesia. Past Medical History Past Medical History: Myocardial Infarction ([place]), Rheumatoid Arthritis ([place]) Additional Past Medical History / Comment(s): SEE DR MEANS H&P, was told had "silent [place]" has had two knee replacements Last Myocardial Infarction Date:: 07/27/21 History of Any Multi-Drug Resistant Organisms: None Reported Past Surgical History: Bladder Surgery, Hysterectomy Additional Past Surgical History / Comment(s): cataract surgery and bilat knee replcmnts Past Anesthesia/Blood Transfusion Reactions: No Reported Reaction Past Psychological History: No Psychological Hx Reported Smoking Status: Never smoker Past Alcohol Use History: Rare Past Drug Use History: None Reported - Past Family History Mother Family Medical History: Deep Vein Thrombosis (DVT) Medications and Allergies Home Medications Medication Instructions Recorded Confirmed Type Folic Acid 0.8 mg PO DAILY 06/19/18 11/29/21 History Magnesium Oxide [Mag-Ox] 400 mg PO DAILY 07/07/21 11/29/21 History Clopidogrel [Plavix] 75 mg PO DAILY 30 Days #30 tab 07/09/21 11/29/21 Rx Aspirin 81 mg PO DAILY 30 Days #30 tab 07/10/21 11/29/21 Rx Turmeric Root Extract [Turmeric] 1,000 mg PO DAILY 11/29/21 11/29/21 History Vit C/E/Zn/Coppr/Lutein/Zeaxan 1 cap PO DAILY 11/29/21 11/29/21 History [Preservision Areds 2 Softgel] prednisoLONE ACETATE 1% OPHTH 1 drop BOTH EYES HS 11/29/21 11/29/21 History [Pred Forte 1%] Atorvastatin [Lipitor] 80 mg PO DAILY 30 Days #30 tab 11/30/21 Rx Metoprolol Succinate (ER) [Toprol 50 mg PO DAILY #30 tab 11/30/21 Rx XL] Allergies Allergy/AdvReac Type Severity Reaction Status Date / Time codeine Allergy Unknown Verified 07/21/22 11:21 Sulfa (Sulfonamide Allergy Rash/Hives Verified 07/21/22 11:21 Antibiotics) tramadol Allergy Vomiting Verified 07/21/22 11:21 trimethoprim Allergy Rash/Hives Verified 07/21/22 11:21 Physical Exam Vitals: Vital Signs Temp Pulse Resp BP Pulse Ox 07/21/22 13:30 65 20 165/76 97 07/21/22 13:00 63 20 165/81 97 07/21/22 12:30 64 20 174/76 97 07/21/22 11:16 98 F 64 18 177/81 100 Intake and Output 07/20/22 07/21/22 07/21/22 22:59 06:59 14:59 Other: Weight 55.792 kg - Constitutional General appearance: no acute distress - Respiratory Respiratory: bilateral: diminished - Cardiovascular Rhythm: regular Heart sounds: normal: S1, S2 Abnormal Heart Sounds: systolic murmur Results 07/21/22 12:00 07/21/22 12:00 Cardiac Enzymes 07/21/22 07/21/22 Range/Units 12:00 12:00 AST 20 (14-36) U/L Troponin I <0.012 (0.000-0.034) ng/mL Coagulation 07/21/22 Range/Units 12:00 PT 12.8 H (9.0-12.0) sec APTT 24.9 (22.0-30.0) sec CBC 07/21/22 Range/Units 12:00 WBC 9.9 (3.8-10.6) k/uL RBC 4.65 (3.80-5.40) m/uL Hgb 11.6 (11.4-16.0) gm/dL Hct 36.4 (34.0-46.0) % Plt Count 267 (150-450) k/uL Comprehensive Metabolic Panel 07/21/22 Range/Units 12:00 Sodium 137 (137-145) mmol/L Potassium 4.2 (3.5-5.1) mmol/L Chloride 103 (98-107) mmol/L Carbon Dioxide 27 (22-30) mmol/L BUN 14 (7-17) mg/dL Creatinine 0.54 (0.52-1.04) mg/dL Glucose 112 H (74-99) mg/dL Calcium 8.7 (8.4-10.2) mg/dL AST 20 (14-36) U/L ALT 17 (4-34) U/L Alkaline Phosphatase 78 (38-126) U/L Total Protein 7.0 (6.3-8.2) g/dL Albumin 3.7 (3.5-5.0) g/dL Current Medications Generic Name Dose Route Start Last Admin Trade Name Freq PRN Reason Stop Dose Admin Aspirin 325 mg 07/22/22 09:00 Aspirin 325 Mg Tab PO DAILY LONNIE HCTZ/Losartan Potassium 1 each 07/22/22 09:00 Losartan-Hctz 50-12.5 Mg 1 Each Tab PO DAILY LONNIE Nitroglycerin 0.4 mg 07/21/22 12:58 Nitroglycerin Sl Tabs 0.4 Mg Tab SUBLINGUAL Q5M PRN Chest Pain Nitroglycerin 0.5 inch 07/21/22 18:00 Nitroglycerin Oint 1 Inch/Gm Packet TOPICAL Q6HR LONNIE Intake and Output 07/20/22 07/21/22 07/21/22 22:59 06:59 14:59 Other: Weight 55.792 kg Patient Weight 07/22/22 06:59 Weight 55.792 kg 07/21/22 12:00 07/21/22 12:00 Assessment and Plan Assessment: Assessment Hypertension emergency Chest discomfort, appears to be pleuritic, in a patient who has pleurisy in the past Coronary artery disease as described above Dyslipidemia Plan The chest discomfort is likely related to pleurisy versus hypertension emergency. Further investigation includes obtaining an echocardiogram and CRP Add losartan/hydrochlorothiazide to the current medical regimen Restart the patient back on aspirin as well as statin Follow-up with the serial cardiac enzymes Follow-up with the patient
[2022-07-21] MEDS ORDERED: FLUOROMETHOLONE 0.1% OPHTH DROPS 5 ML BTL BOTH EYES PRN (15:58)
--- NOTE | 2022-07-21 16:59 | CT ---
EXAMINATION TYPE: CT chest angio for PE DATE OF EXAM: 07/21/2022 COMPARISON: 11/16/2019 HISTORY: chest pain CT DLP: 190.5 mGycm Automated exposure control for dose reduction was used. CONTRAST: Performed with IV Contrast, patient injected with 100 mL of Isovue 370. There are Three-D postprocessed images. There is no mediastinal adenopathy. There are no hilar masses. Thoracic aorta is intact. No aneurysm or dissection. There is no evidence of filling defect in the pulmonary arteries. There is atheromatous changes in th e descending thoracic aorta. The lungs are clear of consolidation. No pleural effusion. Heart is top normal in size. The thoracic spine is intact. No compression fracture. There is minor spurring in the thoracic spine. Sternum is i ntact. There is minimal pleural thickening at the right posterior lung base. There is mild subsegment al atelectasis at the lung bases. IMPRESSION: No evidence of pulmonary embolism. Atheromatous aorta. Borderline cardiomegaly. Intimal subsegmental atelectasis and scarring at the lung bases. This appears increased compared to o ld exam. No suspicious pulmonary mass.
[2022-07-21] MEDS: NITROGLYCERIN OINT 1 INCH/GM PACKET TOPICAL SCH ×2 (17:18→23:54)
--- NOTE | 2022-07-21 20:30 | P.HPIM ---
History of Present Illness H&P Date: 07/21/22 Chief Complaint: Chest pain Patient is a 72-year-old female with a known history of [place] status post cardiac catheterization, no PCI, rheumatoid arthritis, hypertension and hyperlipidemia presents to ER with complaints of chest discomfort. Patient states that she woke up on Friday a.m. due to chest pressure. Patient had trouble sleeping and worsening chest discomfort/pain when lying down. Patient states that she went to [employer] and felt better while standing up and also when leaning forward. Pain also gets worse with deep breathing and mainly right anterior lower chest. No cough or sputum production. No fever no chills. Denies any recent illnesses. No sick contacts at home. EKG on admission showed normal sinus rhythm with no significant ST-T wave changes. Chest x-ray showed no acute cardiopulmonary process. Laboratory pressure WBC 9.9 hemoglobin 11.6 and platelets 267 MCV 78.1 D-dimer level is 0.73 Troponin x3 negative and CRP level is 8.5 On admission blood pressure 177/81 pulse 64 respiration 18 pulse ox 90% on room air. Patient had cardiac catheterization previously but no history of PCI. Echocardiogram in November 2021 showed mildly impaired left ventricular systolic function ejection fraction 45 to 50% with inferobasal hypokinesia. Next Review of Systems Constitutional: Patient denies any fever or chills . no Generalized weakness. Abdomen: Patient denied any nausea or vomiting or abd. pain Cardiovascular: Patient complains of pleuritic chest pain. No short of breath no palpitations. No leg swelling. Respiratory: patient denied any cough . no sputum production. No shortness of breath Neurologic: Patient denied any numbness or tingling headache. Musculoskeletal: Patient denies any complaints of joint swelling or deformity. Skin: Negative Psychiatric: Negative Endocrine: No heat or cold intolerance. No recent weight gain. Genitourinary: No dysuria or hematuria. All other 14 point ROS negative except the above Past Medical History Past Medical History: Myocardial Infarction ([place]), Rheumatoid Arthritis (RA) Additional Past Medical History / Comment(s): SEE DR MEANS H&P, was told had "silent [place]" has had two knee replacements Last Myocardial Infarction Date:: 07/27/21 History of Any Multi-Drug Resistant Organisms: None Reported Past Surgical History: Bladder Surgery, Hysterectomy Additional Past Surgical History / Comment(s): cataract surgery and bilat knee replcmnts Past Anesthesia/Blood Transfusion Reactions: No Reported Reaction Past Psychological History: No Psychological Hx Reported Smoking Status: Never smoker Past Alcohol Use History: Rare Past Drug Use History: None Reported - Past Family History Mother Family Medical History: Deep Vein Thrombosis (DVT) Medications and Allergies Home Medications Medication Instructions Recorded Confirmed Type Folic Acid 0.8 mg PO DAILY 06/19/18 07/21/22 History Aspirin 81 mg PO DAILY 30 Days #30 tab 07/10/21 07/21/22 Rx Vit C/E/Zn/Coppr/Lutein/Zeaxan 2 cap PO DAILY 11/29/21 07/21/22 History [Preservision Areds 2 Softgel] Atorvastatin [Lipitor] 80 mg PO DAILY 30 Days #30 tab 11/30/21 07/21/22 Rx Metoprolol Succinate (ER) [Toprol 50 mg PO DAILY #30 tab 11/30/21 07/21/22 Rx XL] Co Q-10(Unknown Dose) 1 tab PO DAILY 07/21/22 07/21/22 History Fluorometholone 0.1% Ophth Judi 1 drop BOTH EYES DAILY PRN 07/21/22 07/21/22 Hi story [Fml] Loratadine [Claritin] 10 mg PO DAILY 07/21/22 07/21/22 History Magnesium 250 mg PO DAILY 07/21/22 07/21/22 History Turmeric(Unknown) 1 cap PO DAILY 07/21/22 07/21/22 History Turmeric(Unknown) 4 cap PO HS 07/21/22 07/21/22 History methocarbamoL [Robaxin] 500 mg PO DAILY PRN 07/21/22 07/21/22 History Allergies Allergy/AdvReac Type Severity Reaction Status Date / Time codeine Allergy Unknown Verified 07/21/22 14:36 Sulfa (Sulfonamide Allergy Rash/Hives Verified 07/21/22 14:36 Antibiotics) tramadol Allergy Vomiting Verified 07/21/22 14:36 trimethoprim Allergy Rash/Hives Verified 07/21/22 14:36 Physical Exam Vitals: Vital Signs Temp Pulse Resp BP Pulse Ox 07/21/22 13:30 65 20 165/76 97 07/21/22 13:00 63 20 165/81 97 07/21/22 12:30 64 20 174/76 97 07/21/22 11:16 98 F 64 18 177/81 100 Intake and Output 07/20/22 07/21/22 07/21/22 22:59 06:59 14:59 Other: Weight 55.792 kg PHYSICAL EXAMINATION: Patient is lying in the bed comfortably, no acute distress, awake alert and oriented.. HEENT: Normocephalic. Neck is supple. Pupils reactive. Nostrils clear. Oral cavity is moist. Neck reveals no JVD, carotid bruits, or thyromegaly. CHEST EXAMINATION: Trachea is central. Symmetrical expansion. Lung oliveira clear to auscultation and percussion. CARDIAC: Normal S1, S2 with no gallops. No murmurs ABDOMEN: Soft. Bowel sounds present. Nontender. No organomegaly. No abdominal bruits. Extremities: reveal no edema. No clubbing or cyanosis Neurologically awake, alert, oriented x3 with well-coordinated movements. No focal deficits noted Skin: No rash or skin lesions. Psychiatric: Coperative. Nonsuicidal, Musculoskeletal: No joint swelling or deformity. Normal range of motion. Results CBC & Chem 7: 07/21/22 12:00 07/21/22 12:00 Labs: Abnormal Lab Results - Last 24 Hours (Table) 07/21/22 07/21/22 07/21/22 Range/Units 12:00 12:00 12:00 MCV 78.1 L (80.0-100.0) fL MCH 24.9 L (25.0-35.0) pg Neutrophils # 7.8 H (1.3-7.7) k/uL PT 12.8 H (9.0-12.0) sec INR 1.2 H (<1.2) D-Dimer 0.73 H (<0.60) mg/L FEU Glucose 112 H (74-99) mg/dL Thrombosis Risk Factor Assmnt - DVT/VTE Prophylaxis DVT/VTE Prophylaxis: Pharmacologic Prophylaxis ordered Assessment and Plan Assessment: Pleuritic chest pain worsens with deep breathing and lying flat. Rule out acute pericarditis / ACS. Hypertensive urgency on admission Coronary artery disease with no history of stent placement Hypertension Hyperlipidemia Rheumatoid arthritis DVT prophylaxis with heparin subcu Plan: Patient will be continued on telemetry monitoring. Continue with serial EKG and troponin x3. Due to elevated D-dimer level, CTA chest will be done to rule out PE.. CRP level is elevated at 8.5. Today echocardiogram was ordered and cardiology is on board. Continue with metoprolol and added losartan/hydrochlorothiazide for better blood pressure control. Continue with aspirin and statins. Follow-up closely. Time with Patient: Greater than 30
[2022-07-21] MEDS: SODIUM CHLORIDE 0.9% 300 ML IV SCH ×3 (23:53→23:54)
[2022-07-22] MEDS: SODIUM CHLORIDE 0.9% 300 ML IV SCH ×3 (06:29→16:48)
[2022-07-22] MEDS: NITROGLYCERIN OINT 1 INCH/GM PACKET TOPICAL SCH ×2 (06:30→16:48)
[2022-07-22 08:06] VITALS: RESP 17
[2022-07-22] MEDS ORDERED: ASPIRIN 325 MG TAB PO SCH (09:00)
[2022-07-22] MEDS ORDERED: LOSARTAN-HCTZ 50-12.5 MG 1 EACH TAB PO SCH (09:00)
[2022-07-22] MEDS ORDERED: NON FORMULARY DRUG (Ubidecarenone [Co Q-10] 300 MG Capsule) PO SCH (09:00)
[2022-07-22] MEDS ORDERED: METOPROLOL SUCCINATE (ER) 50 MG TAB.ER.24H PO SCH (09:00)
[2022-07-22] MEDS ORDERED: ATORVASTATIN 80 MG TAB PO SCH (09:00)
[2022-07-22] MEDS ORDERED: FOLIC ACID 1 MG TAB PO SCH (09:00)
[2022-07-22] MEDS ORDERED: MAGNESIUM OXIDE 400 MG TAB PO SCH (09:00)
--- NOTE | 2022-07-22 09:09 | P.PN ---
Subjective Progress Note Date: 07/22/22 HISTORY OF PRESENT ILLNESS The patient is a 72-year-old female patient with a past medical history signifi cant for coronary artery disease and known chronic total occlusion of the right coronary artery based on heart catheterization was performed in 2021 as well as hypertension and dyslipidemia presented to the emergency department complaining of chest discomfort. The patient was in her usual state of health until today. She describes the pain as sharp kind of discomfort in the middle of the chest w ith no radiation to the arms or neck or shoulders or back and no associated symptoms of shortness of breath or dizziness or lightheadedness or presyncope or syncope. Clearly she stated that the chest discomfort is worse was deep breath and also worse with laying flat and better with sitting and leaning forward, concerning for what it seems to be possible a component of pericarditis. At the same time when she presented to the hospital her pressure has been elevated and consistent with hypertension crisis. She stated that she has been compliant with her medication. She underwent further workup including EKG showing sinus rhythm with no significant ST or T-wave abnormalities and also first set of cardiac enzyme came in to be unremarkable. Currently she is chest pain-free. No history of fever or chills and no history of upper respiratory infection. The echo from 2021 revealed mildly impaired LV function was EF between 45-50% with inferobasal hypokinesia. 07/22 Patient denies having any chest pain. Her repeat blood work revealed troponin negative 3 and CRP 8.5. CTA of the chest showed no evidence of pulmonary embolism. Atheromatous aorta. Borderline cardiomegaly. Interval subsegmental atelectasis and scarring at the lung bases. No suspicious pulmonary mass. Patient was started on losartan/hydrochlorothiazide yesterday with minimal improvement of blood pressure. Echocardiogram is pending. PHYSICAL EXAMINATION Gen: This is a 72-year-old female. She is resting in bed and appears to be comfortable and in no acute distress. VS: reviewed HEENT: Head is atraumatic, normocephalic. Pupils equal, round. Sclerae is anicteric. LUNGS: Diminished bilaterally No intercostal retractions. HEART: Regular rate and rhythm. Systolic murmur. ABDOMEN: Soft. No tenderness. EXTREMITIES: No pedal edema. NEUROLOGICAL: Patient is awake, alert and oriented x3. ASSESSMENT Hypertension emergency Chest discomfort, appears to be pleuritic, in a patient who has pleurisy in the past Coronary artery disease as described above Dyslipidemia PLAN The chest discomfort is likely related to pleurisy versus hypertension emergency. Await echocardiogram report Continue the addition of losartan/hydrochlorothiazide to the current medical regimen If echocardiogram is within normal limits, patient is cleared for discharge home later today. Blood pressure medications may be adjusted as an outpatient. Nurse practitioner note has been reviewed, I agree with documented findings and plan of care. Patient was seen and examined. Objective - Vital Signs Vital signs: Vital Signs Temp 98 F 07/22/22 07:00 Pulse 68 07/22/22 07:00 Resp 17 07/22/22 07:00 BP 161/69 07/22/22 07:00 Pulse Ox 97 07/22/22 07:00 FiO2 Intake & Output 07/21/22 07/22/22 07/22/22 18:59 06:59 18:59 Intake Total 120 Balance 120 Weight 55.792 kg Intake: Oral 120 Other: # Voids 2 - Labs CBC & Chem 7: 07/21/22 12:00 07/21/22 12:00 Labs: Abnormal Lab Results - Last 24 Hours (Table) 07/21/22 07/21/22 07/21/22 Range/Units 12:00 12:00 12:00 MCV 78.1 L (80.0-100.0) fL MCH 24.9 L (25.0-35.0) pg Neutrophils # 7.8 H (1.3-7.7) k/uL PT 12.8 H (9.0-12.0) sec INR 1.2 H (<1.2) D-Dimer 0.73 H (<0.60) mg/L FEU Glucose 112 H (74-99) mg/dL C-Reactive Protein (<1.0) mg/dL 07/21/22 Range/Units 14:31 MCV (80.0-100.0) fL MCH (25.0-35.0) pg Neutrophils # (1.3-7.7) k/uL PT (9.0-12.0) sec INR (<1.2) D-Dimer (<0.60) mg/L FEU Glucose (74-99) mg/dL C-Reactive Protein 8.5 H (<1.0) mg/dL
[2022-07-22 10:38] LABS: Basophils # (A) 0.04 X 10*3/uL (0.00-0.10); Basophils % (A) 0.5 %; Eosinophils # (A) 0.13 X 10*3/uL (0.04-0.35); Eosinophils % (A) 1.6 %; HCT 35.6 % (37.2-46.3); HGB 10.8 g/dL (12.0-15.0); Immature Grans, Automated 0.4 %; Lymphocytes # (A) 1.62 X 10*3/uL (0.90-5.00); MCH 24.9 pg (27.0-32.0); MCHC 30.3 g/dL (32.0-37.0); Mean Platelet Volume 10.2 fL (9.5-12.2); Monocytes # (A) 0.86 X 10*3/uL (0.20-1.00); Monocytes % (A) 10.6 %; NRBC Per 100 WBC 0 /100 WBCS (0.0-0.0); Neutrophils % (A) 66.9 %; Platelet Count 282 X 10*3/uL (140-440); RBC 4.34 X 10*6/uL (4.10-5.20); RDW 15.6 % (11.5-14.5); WBC 8.08 X 10*3/uL (4.50-10.00)
[2022-07-22 11:03] LABS: African American GFR (CKD) 101.4 (60.0-200.0); BUN/Creat Ratio 16.31 Ratio (12.00-20.00); Blood Urea Nitrogen 10.6 mg/dL (9.0-27.0); Calcium 8.7 mg/dL (8.7-10.3); Carbon Dioxide 27.3 mmol/L (20.0-27.5); Chloride 103 mmol/L (96-109); Chol/HDL Ratio 2.21 Ratio; Glucose 99 mg/dL (70-110); LDL Cholesterol,Calculated 50.1 mg/dL (0.0-131.0); Non-African American GFR(CKD) 87.5 (60.0-200.0); Potassium 4.3 mmol/L (3.5-5.5); Sodium 139 mmol/L (135-145)
--- NOTE | 2022-07-22 11:05 | CA ---
Transthoracic Echo Report Name: Mishel Mcknight Age: 72 Gender: F : 1950 Exam Date: 07/22/2022 09:11 Exam Location: [place] [facility] Ht (in): 60 Wt (lb): 123 Ordering Physician: Ronald Mata MD ([id number]) Attending/Referring Phys: [place] Briceno [facility] Transmission Builder Jasmine Galdamez RDCS Procedure CPT: Indications: CP Cardiac Hx: Technical Quality: Contrast 1: Total Dose (mL): Contrast 2: Total Dose (mL): MEASUREMENTS (Male / Female) Normal Values 2D ECHO LV Diastolic Diameter PLAX 5.1 cm 4.2 - 5.9 / 3.9 - 5.3 cm LV Systolic Diameter PLAX 3.9 cm IVS Diastolic Thickness 0.9 cm 0.6 - 1.0 / 0.6 - 0.9 cm LVPW Diastolic Thickness 1.3 cm 0.6 - 1.0 / 0.6 - 0.9 cm LV Relative Wall Thickness 0.4 RV Internal Dim ED PLAX 3.2 cm LA Systolic Diameter LX 4.3 cm 3.0 - 4.0 / 2.7 - 3.8 cm LV Diastolic Volume MOD BP 108.0 cm??? 67 - 155 / 56 - 104 cm??? LV Systolic Volume MOD BP 46.3 cm??? 22 - 58 / 19 - 49 cm??? LV Ejection Fraction MOD BP 57.1 % >= 55 % LV Diastolic Volume MOD 4C 96.1 cm??? LV Systolic Volume MOD 4C 34.5 cm??? LV Ejection Fraction MOD 4C 64.1 % LV Diastolic Length 4C 7.2 cm LV Systolic Length 4C 5.8 cm LV Diastolic Volume MOD 2C 121.4 cm??? LV Systolic Volume MOD 2C 59.0 cm??? LV Ejection Fraction MOD 2C 51.4 % LV Diastolic Length 2C 7.2 cm LV Systolic Length 2C 6.2 cm LA Volume 59.4 cm??? 18 - 58 / 22 - 52 cm??? M-MODE Aortic Root Diameter MM 3.1 cm LA Systolic Diameter MM 4.3 cm LA Ao Ratio MM 1.4 AV Cusp Separation MM 1.1 cm DOPPLER MV E' Velocity 4.6 cm/s TR Peak Velocity 295.9 cm/s TR Peak Gradient 35.0 mmHg Right Ventricular Systolic Press 39.6 mmHg FINDINGS Left Ventricle Mildly increased posterior wall thickness. Mildly increased left ventricular diastolic volume. Left ventricular ejection fraction is estimated at 40-45 %.. Inferior hypokinesis. Right Ventricle Normal right ventricular size and function. Mild pulmonary hypertension. Right ventricular systolic pressure estimated at 40 mm hg. Right Atrium Normal right atrial size. Left Atrium Mildly increased left atrial diameter. Mildly increased left atrial volume. Mitral Valve Structurally thickening mitral valve. [id number] mitral regurgitation. Aortic Valve Trileaflet aortic valve. Tricuspid Valve Structurally normal tricuspid valve. Mild tricuspid regurgitation. Pulmonic Valve Structurally normal pulmonic valve. Pericardium Normal pericardium. Aorta Normal size aortic root and proximal ascending aorta. CONCLUSIONS Moderate LV systolic dysfunction with an ejection fraction of 40-45% Evidence of prior inferior wall myocardial infarction Moderate to severe mitral regurgitation Mild tricuspid regurgitation Mild pulmonary hypertension Previewed by: Dr. Bhaskar Walker MD (Electronically Signed) Final Date: 22 July 2022 11:04
[2022-07-22 14:52] VITALS: BP 123/65; PULSE 64; TEMP 98.2
--- NOTE | 2022-07-22 15:58 | P.PN ---
Subjective Progress Note Date: 07/22/22 Patient is a 72-year-old female with a known history of [place] status post cardiac catheterization, no PCI, rheumatoid arthritis, hypertension and hyperlipidemia presents to ER with complaints of chest discomfort. Patient states that she woke up on Friday a.m. due to chest pressure. Patient had trouble sleeping and worsening chest discomfort/pain when lying down. Patient states that she went to [employer] and felt better while standing up and also when leaning forward. Pain also gets worse with deep breathing and mainly right anterior lower chest. No cough or sputum production. No fever no chills. Denies any recent illnesses. No sick contacts at home. EKG on admission showed normal sinus rhythm with no significant ST-T wave changes. Chest x-ray showed no acute cardiopulmonary process. Laboratory pressure WBC 9.9 hemoglobin 11.6 and platelets 267 MCV 78.1 D-dimer level is 0.73 Troponin x3 negative and CRP level is 8.5 On admission blood pressure 177/81 pulse 64 respiration 18 pulse ox 90% on room air. Patient had cardiac catheterization previously but no history of PCI. Echocardiogram in November 2021 showed mildly impaired left ventricular systolic function ejection fraction 45 to 50% with inferobasal hypokinesia. Next 07/22/2022 Patient is seen and evaluated in follow-up this morning with cardiology following. 2-D echo ordered and pending at this time. Losartan/hydrochlorothiazide has been added and recommend monitoring blood pressure and tolerance and continue telemetry. Patient encouraged to increase activity as tolerated. Patient continues to endorse she has difficulty with chest pressure while lying flat. Patient did have an elevated d-dimer although was negative for PE on CT and troponins have been negative. Cardiology recommending awaiting for echo and continue to monitor blood pressure. Patient is currently afebrile denies chest pain currently and reports no shortness of breath when she is sitting up. Patient denies nausea or vomiting and tolerating diet. Review of systems: Constitutional: No reports of fatigue, fever, or chills Cardiovascular: No reports of chest pain or palpitations Respiratory: No reports of shortness of breath unless she lies flat GI: No reports of nausea, vomiting, or diarrhea : No reports of dysuria or retention Neurovascular: No reports of weakness or numbness All medications have been reviewed Active Medications Aspirin (Aspirin 325 Mg Tab) 325 mg PO DAILY LONNIE Last Admin: 07/22/22 08:37 Dose: 325 mg Atorvastatin Calcium (Atorvastatin 80 Mg Tab) 80 mg PO DAILY [facility] Last Admin: 07/22/22 08:37 Dose: 80 mg Fluorometholone (Fluorometholone 0.1% Ophth Drops 5 Ml Btl) 1 drops BOTH EYES DAILY PRN PRN Reason: Inflammation Folic Acid (Folic Acid 1 Mg Tab) 1 mg PO DAILY [facility] Last Admin: 07/22/22 08:37 Dose: 1 mg HCTZ/Losartan Potassium (Losartan-Hctz 50-12.5 Mg 1 Each Tab) 1 each PO DAILY [facility] Last Admin: 07/22/22 08:37 Dose: 1 each Sodium Chloride (Saline 0.9%) 300 mls @ 75 mls/hr IV .Q4H [facility] Last Admin: 07/22/22 08:38 Dose: 75 mls/hr Magnesium Oxide (Magnesium Oxide 400 Mg Tab) 400 mg PO DAILY [facility] Last Admin: 07/22/22 08:37 Dose: 400 mg Metoprolol Succinate (Metoprolol Succinate (Er) 50 Mg Tab.Er.24h) 50 mg PO DAILY [facility] Last Admin: 07/22/22 12:29 Dose: 50 mg Nitroglycerin (Nitroglycerin Sl Tabs 0.4 Mg Tab) 0.4 mg SUBLINGUAL Q5M PRN PRN Reason: Chest Pain Nitroglycerin (Nitroglycerin Oint 1 Inch/Gm Packet) 0.5 inch TOPICAL Q6HR [facility] Last Admin: 07/22/22 06:30 Dose: Not Given Physical exam: Patient is sitting up in the bed comfortably, no acute distress, awake alert and oriented.. HEENT: Normocephalic. Neck is supple. Pupils reactive. Nostrils clear. Oral cavity is moist. Neck reveals no JVD, carotid bruits, or thyromegaly. CHEST EXAMINATION: Trachea is central. Symmetrical expansion. Lung oliveira clear to auscultation and percussion. CARDIAC: Normal S1, S2 with no gallops. No murmurs ABDOMEN: Soft. Bowel sounds present. Nontender. No organomegaly. No abdominal bruits. Extremities: reveal no edema. No clubbing or cyanosis Neurologically awake, alert, oriented x3 with well-coordinated movements. No focal deficits noted Skin: No rash or skin lesions. Psychiatric: Cooperative. Non-suicidal, Musculoskeletal: No joint swelling or deformity. Normal range of motion. Assessment: Pleuritic chest pain worsens with deep breathing and lying flat. Rule out acute pericarditis / ACS. Hypertensive urgency on admission Coronary artery disease with no history of stent placement Hypertension Hyperlipidemia Rheumatoid arthritis DVT prophylaxis with heparin subcu Plan: Patient will be continued on telemetry monitoring. Serial troponins negative and cardiology following. 2-D echo is ordered and pending at this time Losartan/hydrochlorothiazide added and recommend monitoring blood pressure closely while awaiting for 2-D echo Due to elevated D-dimer level, CTA chest was done showing no evidence of PE with an atheromatous aorta and borderline cardiomegaly CRP level is elevated at 8.5. Continue with aspirin and statins. Recommend to monitor vital signs closely and encouraged increase activity as tolerated. Follow-up with patient in the a.m. Possible discharge in the next 24 hours The impression and plan of care has been dictated by Ruma Mcdonald, Nurse Practitioner as directed. Dr. Keila MD I have performed a history and examination and MDM of this patient, discussed the same with the dictator, and agree with the dictator's assessment and plan as written ,documented as a scribe. Based on total visit time, I have performed more than 50% of the visit. Objective - Vital Signs Vital signs: Vital Signs Temp 98 F 07/22/22 07:00 Pulse 68 07/22/22 09:50 Resp 17 07/22/22 07:00 BP 161/69 07/22/22 07:00 Pulse Ox 97 07/22/22 07:00 FiO2 Intake & Output 07/21/22 07/22/22 07/22/22 18:59 06:59 18:59 Intake Total 120 118 Balance 120 118 Weight 55.792 kg Intake: Oral 120 118 Other: # Voids 2 1 - Labs CBC & Chem 7: 07/22/22 06:07 07/22/22 06:07 Labs: Abnormal Lab Results - Last 24 Hours (Table) 07/21/22 07/21/22 07/21/22 Range/Units 12:00 12:00 12:00 MCV 78.1 L (80.0-100.0) fL MCH 24.9 L (25.0-35.0) pg Neutrophils # 7.8 H (1.3-7.7) k/uL PT 12.8 H (9.0-12.0) sec INR 1.2 H (<1.2) D-Dimer 0.73 H (<0.60) mg/L FEU Glucose 112 H (74-99) mg/dL C-Reactive Protein (<1.0) mg/dL 07/21/22 Range/Units 14:31 MCV (80.0-100.0) fL MCH (25.0-35.0) pg Neutrophils # (1.3-7.7) k/uL PT (9.0-12.0) sec INR (<1.2) D-Dimer (<0.60) mg/L FEU Glucose (74-99) mg/dL C-Reactive Protein 8.5 H (<1.0) mg/dL
--- NOTE | 2022-07-23 17:06 | P.DS ---
Providers Date of admission: 07/21/22 12:58 Expected date of discharge: 07/22/22 Attending physician: Jessi Gates MD Consults: 07/21/22 12:58 Consult Physician Urgent Consulting Provider: Ronald Mata Consult Reason/Comments: cp Do you want consulting provider notified?: Yes Primary care physician: Zaki Bernabe [facility] Hospital Course: Final diagnosis Pleuritic chest pain worsens with deep breathing and lying flat. Ruled out acute pericarditis / ACS. Hypertensive urgency on admission, improving Coronary artery disease with no history of stent placement Hypertension Hyperlipidemia Rheumatoid arthritis DVT prophylaxis with heparin subcu Discharge disposition Patient is being discharged in a stable condition with guarded prognosis to home. Patient will follow-up with Dr. Bernabe in the outpatient setting upon discharge. Patient is to continue with close outpatient follow-up with cardiology. Patient to continue on current medications as mentioned below. Total time taken is greater than 35 minutes. Hospital course This is a 72-year-old female who was recently admitted with chest pain, pleuritic in nature ruled out ACS and was evaluated closely by insole and outsole preparer. Patient also with uncontrolled blood pressure will continue on losartan/hydrochlorothiazide and close outpatient follow-up. 2-D echo was reviewed showing an EF of 40-45% with some pulmonary hypertension and again recommend close outpatient follow-up with cardiology. Cardiology has cleared the patient for discharge today. Currently no reports of chest pain, shortness of breath, or palpitations. Patient is afebrile. No reports of nausea or vomiting and patient is tolerating diet. Patient will be discharged home today. Guarded prognosis. Physical exam: Gen: This is a 72-year-old female who is awake, alert and oriented 3, well- developed, well-nourished, thin built elderly appearing female HEENT: Head is atraumatic, normocephalic. Pupils equal, round. Sclerae is anicteric. NECK: Supple. No JVD. No lymphadenopathy. No thyromegaly. LUNGS: Diminished breath sounds bilaterally with no wheezing or rhonchi noted. No intercostal retractions. HEART: Regular rate and rhythm. No murmur. ABDOMEN: Soft. Bowel sounds are present. No masses. No tenderness. EXTREMITIES: No pedal edema. No calf tenderness. NEUROLOGICAL: Patient is awake, alert and oriented x3. Cranial nerves 2 through 12 are grossly intact. Please refer to medication reconciliation sheet for a list of medications. The impression and plan of care has been dictated by Ruma Mcdonald, Nurse Practitioner as directed. Dr. Keila MD I have performed a history and examination and MDM of this patient, discussed the same with the dictator, and agree with the dictator's assessment and plan as written ,documented as a scribe. Based on total visit time, I have performed more than 50% of the visit. Patient Condition at Discharge: Fair Plan - Discharge Summary New Discharge Prescriptions: New Losartan-Hctz 50-12.5 mg [Hyzaar 50-12.5] 1 each PO DAILY 30 Days #30 tab Continue Folic Acid 0.8 mg PO DAILY Aspirin 81 mg PO DAILY 30 Days #30 tab Vit C/E/Zn/Coppr/Lutein/Zeaxan [Preservision Areds 2 Softgel] 2 cap PO DAILY Metoprolol Succinate (ER) [Toprol XL] 50 mg PO DAILY #30 tab Fluorometholone 0.1% Ophth Judi [Fml] 1 drop BOTH EYES DAILY PRN PRN Reason: Inflammation Loratadine [Claritin] 10 mg PO DAILY Magnesium 250 mg PO DAILY methocarbamoL [Robaxin] 500 mg PO DAILY PRN PRN Reason: Muscle Pain Turmeric(Unknown) 1 cap PO DAILY Co Q-10(Unknown Dose) 1 tab PO DAILY Atorvastatin [Lipitor] 80 mg PO DAILY 30 Days #30 tab Turmeric(Unknown) 4 cap PO HS Discharge Medication List Folic Acid 0.8 mg PO DAILY 06/19/18 [History] Aspirin 81 mg PO DAILY 30 Days #30 tab 07/10/21 [Rx] Vit C/E/Zn/Coppr/Lutein/Zeaxan [Preservision Areds 2 Softgel] 2 cap PO DAILY 11/29/21 [History] Atorvastatin [Lipitor] 80 mg PO DAILY 30 Days #30 tab 11/30/21 [Rx] Metoprolol Succinate (ER) [Toprol XL] 50 mg PO DAILY #30 tab 11/30/21 [Rx] Co Q-10(Unknown Dose) 1 tab PO DAILY 07/21/22 [History] Fluorometholone 0.1% Ophth Judi [Fml] 1 drop BOTH EYES DAILY PRN 07/21/22 [History] Loratadine [Claritin] 10 mg PO DAILY 07/21/22 [History] Magnesium 250 mg PO DAILY 07/21/22 [History] Turmeric(Unknown) 1 cap PO DAILY 07/21/22 [History] Turmeric(Unknown) 4 cap PO HS 07/21/22 [History] methocarbamoL [Robaxin] 500 mg PO DAILY PRN 07/21/22 [History] Losartan-Hctz 50-12.5 mg [Hyzaar 50-12.5] 1 each PO DAILY 30 Days #30 tab 07/22/22 [Rx] Follow up Appointment(s)/Referral(s): [facility] [Provider Group] - 1 Week (please call tomorrow morning to set up a fu appointment with Dr Cooley Thank you!) Zaki Bernabe MD [Primary Care Provider] - 1-2 days Patient Instructions/Handouts: Angina (GEN), Chest Pain (GEN), Transthoracic Echocardiogram (DC) Activity/Diet/Wound Care/Special Instructions: Activity Limited until follow-up Follow-up with primary care provider on discharge Continue taking medications as prescribed Follow-up cardiology in 1-2 weeks Continue current diet Discharge Disposition: HOME SELF-CARE
== END 2022-07-22 18:45 | disposition home or self-care (01) ==
LOC: EC 11:15 → 6NMEDSUR 12:58
PROVIDERS: ADMIT Internal Medicine; ATTEND Internal Medicine
DX: R07.1 Chest pain on breathing (principal); I16.0 Hypertensive urgency; R79.89 Other specified abnormal findings of blood chemistry; I25.82 Chronic total occlusion of coronary artery; I25.10 Atherosclerotic heart disease of native coronary artery without angina pectoris; I08.1 Rheumatic disorders of both mitral and tricuspid valves; I70.0 Atherosclerosis of aorta; I10 Essential (primary) hypertension; E78.5 Hyperlipidemia, unspecified; J98.11 Atelectasis; I27.20 Pulmonary hypertension, unspecified; M06.9 Rheumatoid arthritis, unspecified; I25.2 Old myocardial infarction; Z79.02 Long term (current) use of antithrombotics/antiplatelets; Z79.82 Long term (current) use of aspirin; Z79.899 Other long term (current) drug therapy; Z88.1 Allergy status to other antibiotic agents; Z88.2 Allergy status to sulfonamides; Z88.5 Allergy status to narcotic agent; Z96.653 Presence of artificial knee joint, bilateral; Z90.710 Acquired absence of both cervix and uterus; Z98.49 Cataract extraction status, unspecified eye; Z98.890 Other specified postprocedural states; Z82.49 Family history of ischemic heart disease and other diseases of the circulatory system
CPT/HCPCS: 99285; 36415; 94760; 93005; 93306; 85379; 80061; 80053; 80048; 83735; 84484; 85025 ×2; 85610; 85730; 86140; 71046; 71275; G0378 ×2; Q9967

== ENCOUNTER → 2024-07-08 | Outpatient (CLI) | payer MEDICARE ==
--- NOTE | 2024-07-08 12:41 | US ---
EXAMINATION TYPE: US gallbladder DATE OF EXAM: 07/08/2024 COMPARISON: NONE CLINICAL INDICATION: Female, 74 years old with history of R12 HEARTBURN; Heartburn TECHNIQUE: Grayscale and color Doppler imaging of the right upper quadrant. FINDINGS: EXAM MEASUREMENTS: Liver Length: 12.0 cm Gallbladder Wall: 0.17 cm CBD: 0.65 cm, color Doppler imaging was utilized to isolate the common bile duct for measurement. Right Kidney: 10.2 x 4.6 x 4.4 cm DESULPHURIZER OPERATOR NOTES: Exam is limited due to gas. Pancreas: Limited detail due to bowel gas shadowing. Visualized portions show no gross abnormality. Liver: Overall homogeneous appearance. No focal lesion. Gallbladder: Partially contracted. No shadowing stones or surrounding fluid. Evidence for sonographic Julio's sign: No CBD: Borderline to mildly dilated. Right Kidney: No hydronephrosis or masses seen. Lower pole-limited due to gas. IMPRESSION: 1. Borderline to mildly dilated bile duct at 6.5 mm, may be normal given patient's age. Correlate wit h alkaline phosphatase and bilirubin levels. 2. No gallstones. [facility], Workstation: [employer]da[employer]mazelyCHARLES, 07/08/2024 12:38 PM
== END | disposition home or self-care (01) ==
LOC: RADUSWWP 08:36
PROVIDERS: ATTEND Family Medicine
DX: R12 Heartburn (principal); K83.8 Other specified diseases of biliary tract
CPT/HCPCS: 76705

== ENCOUNTER → 2024-07-30 | Outpatient (CLI) | payer MEDICARE ==
--- NOTE | 2024-07-30 10:47 | NM ---
EXAMINATION TYPE: NM hepatobiliary w EF DATE OF EXAM: 07/30/2024 COMPARISON: Gallbladder ultrasound 07/08/2024 CLINICAL INDICATION: Female, 74 years old with history of K83.8 OTHER DISEASE OF BILIARY TRACT; TECHNIQUE: After the intravenous administration of 5.15 mCi Tc 99m Mebrofenin hepatobiliary scintigra phy is performed. Immediate images post injection. FINDINGS: There is satisfactory initial accumulation of tracer by the liver. The gallbladder is visualized wit hin 5 minutes. The small bowel activity is noted within 30 minutes. At one hour 8 ounces of oral en sure plus is given to mimic CCK and gallbladder ejection fraction is calculated at 70 %, in the esau l range. Therefore there is no scintigraphic evidence of cystic or common bile duct obstruction to s uggest acute cholecystitis or gallbladder dyskinesia. IMPRESSION: Exam is within normal limits. [facility], , 07/30/2024 10:44 AM
== END | disposition home or self-care (01) ==
LOC: RADNMMAIN 08:28
PROVIDERS: ATTEND Family Medicine
DX: K83.8 Other specified diseases of biliary tract (principal)
CPT/HCPCS: 78226; A9537